=== PATIENT | female | born 1955 | race Caucasian/White ===

== ENCOUNTER 2020-09-01 13:35 | Outpatient (REF) | payer MEDICARE, OTHER, SELFPAY ==
[2020-09-01 14:13] LABS: MANUAL DIFF FLAG NO
[2020-09-01 14:15] LABS: Basophils Percent Auto 0.7 % (0-2); Eosinophils Absolute Auto 0.1 X10*3/uL (0.0-0.4); Eosinophils Percent Auto 2.5 % (0-4); Hematocrit 39.8 % (37-47); Hemoglobin 13.4 g/dl (12.0-16.0); Imm Gran Abs Auto 0.01 X10*3/uL (0.00-0.03); Imm Gran Pct Auto 0.2 % (0.0-0.4); Lymphocytes Absolute Auto 1.1 X10*3/uL (1.2-4.9); Lymphocytes Percent Auto 19.6 % (20-40); Mean Corpuscular HGB Conc 33.7 g/dl (31.0-35.0); Mean Corpuscular Hemoglobin 30.2 pg (27.0-33.0); Mean Corpuscular Volume 89.8 fL (80-98); Mean Platelet Volume 8.7 fL (9.4-12.3); Monocytes Absolute Auto 0.7 X10*3/uL (0.1-1.2); Neutrophils Absolute Auto 3.6 X10*3/uL (2.0-8.3); Platelet Count 311 X10*3/uL (160-400); Red Blood Count 4.43 X10*6/uL (4.20-5.50); Red Cell Distribution Width 13.2 % (11.0-16.0); White Blood Count 5.5 X10*3/uL (4.8-10.8)
[2020-09-01 16:00] LABS: Iron 99 mcg/dL (30-160); Percent Iron Saturation 26 % (15-50); Total Iron Binding Capacity 382 mcg/dL (228-428); Unsaturated Iron Binding 283 ug/dL
[2020-09-01 16:22] LABS: Ferritin 28 ng/mL (10-250)
== END 2020-09-01 13:36 | disposition home or self-care (01) ==
LOC: HO.BBR 13:35
PROVIDERS: Internal Medicine Gastroenterology; PCP Nurse Practitioner Adult Health; Visit Provider Nurse Practitioner Adult Health
DX: E83.110 Hereditary hemochromatosis (principal)
CPT/HCPCS: 36415; 82728; 83540; 85025; 99195

== ENCOUNTER 2020-11-07 15:17 | Outpatient (REF) | payer MEDICARE, OTHER, SELFPAY ==
[2020-11-07 15:23] LABS: MANUAL DIFF FLAG NO
[2020-11-07 15:32] LABS: Basophils Percent Auto 0.6 % (0-2); Eosinophils Absolute Auto 0.2 X10*3/uL (0.0-0.4); Eosinophils Percent Auto 2.5 % (0-4); Hematocrit 41.3 % (37-47); Hemoglobin 13.9 g/dl (12.0-16.0); Imm Gran Abs Auto 0.01 X10*3/uL (0.00-0.03); Imm Gran Pct Auto 0.1 % (0.0-0.4); Lymphocytes Absolute Auto 1.2 X10*3/uL (1.2-4.9); Lymphocytes Percent Auto 17.5 % (20-40); Mean Corpuscular HGB Conc 33.7 g/dl (31.0-35.0); Mean Corpuscular Hemoglobin 30.2 pg (27.0-33.0); Mean Corpuscular Volume 89.6 fL (80-98); Mean Platelet Volume 8.7 fL (9.4-12.3); Monocytes Absolute Auto 0.7 X10*3/uL (0.1-1.2); Monocytes Percent Auto 11.1 % (2-11); Neutrophils Absolute Auto 4.6 X10*3/uL (2.0-8.3); Neutrophils Percent Auto 68.2 % (45-73); Platelet Count 339 X10*3/uL (160-400); Red Blood Count 4.61 X10*6/uL (4.20-5.50); Red Cell Distribution Width 12.9 % (11.0-16.0); White Blood Count 6.7 X10*3/uL (4.8-10.8)
[2020-11-07 16:12] LABS: Iron 98 mcg/dL (30-160); Percent Iron Saturation 26 % (15-50); Total Iron Binding Capacity 381 mcg/dL (228-428); Unsaturated Iron Binding 283 ug/dL
[2020-11-07 16:33] LABS: Ferritin 25 ng/mL (10-250)
== END 2020-11-07 15:18 | disposition home or self-care (01) ==
LOC: HO.BBR 15:17
PROVIDERS: Visit Provider Internal Medicine Gastroenterology
DX: E83.110 Hereditary hemochromatosis (principal)
CPT/HCPCS: 36415; 82728; 83540; 85025

== ENCOUNTER 2020-11-07 15:59 | Outpatient (REF) | payer SELFPAY ==
[2020-11-07 16:32] LABS: Cholesterol 221 mg/dL
== END 2020-11-07 16:00 | disposition home or self-care (01) ==
LOC: HO.LNC 15:59
PROVIDERS: Visit Provider Pathology Anatomic Pathology & Clinical Pathology
DX: Z76.89 Persons encountering health services in other specified circumstances (principal)
CPT/HCPCS: 82465

== ENCOUNTER 2021-01-11 11:57 | Outpatient (REF) | payer MEDICARE, OTHER, SELFPAY ==
[2021-01-11 12:19] LABS: MANUAL DIFF FLAG NO
[2021-01-11 12:23] LABS: Basophils Percent Auto 0.6 % (0-2); Eosinophils Absolute Auto 0.2 X10*3/uL (0.0-0.4); Eosinophils Percent Auto 3.4 % (0-4); Hematocrit 40.7 % (37-47); Hemoglobin 13.6 g/dl (12.0-16.0); Imm Gran Abs Auto 0.01 X10*3/uL (0.00-0.03); Imm Gran Pct Auto 0.2 % (0.0-0.4); Lymphocytes Absolute Auto 0.8 X10*3/uL (1.2-4.9); Lymphocytes Percent Auto 15.2 % (20-40); Mean Corpuscular HGB Conc 33.4 g/dl (31.0-35.0); Mean Corpuscular Volume 86.8 fL (80-98); Mean Platelet Volume 8.9 fL (9.4-12.3); Monocytes Absolute Auto 0.6 X10*3/uL (0.1-1.2); Monocytes Percent Auto 11.6 % (2-11); Neutrophils Absolute Auto 3.6 X10*3/uL (2.0-8.3); Platelet Count 338 X10*3/uL (160-400); Red Blood Count 4.69 X10*6/uL (4.20-5.50); White Blood Count 5.3 X10*3/uL (4.8-10.8)
[2021-01-11 13:02] LABS: Iron 65 mcg/dL (30-160); Percent Iron Saturation 17 % (15-50); Total Iron Binding Capacity 376 mcg/dL (228-428); Unsaturated Iron Binding 311 ug/dL
[2021-01-11 13:22] LABS: Ferritin 20 ng/mL (10-250)
== END 2021-01-11 11:58 | disposition home or self-care (01) ==
LOC: HO.BBR 11:57
PROVIDERS: Visit Provider Internal Medicine Gastroenterology
DX: E83.110 Hereditary hemochromatosis (principal)
CPT/HCPCS: 36415; 82728; 83540; 85025

== ENCOUNTER 2021-03-22 11:08 | Outpatient (REF) | payer MEDICARE, OTHER, SELFPAY ==
[2021-03-22 11:38] LABS: MANUAL DIFF FLAG NO
[2021-03-22 11:41] LABS: Basophils Percent Auto 0.4 % (0-2); Eosinophils Absolute Auto 0.1 X10*3/uL (0.0-0.4); Eosinophils Percent Auto 0.6 % (0-4); Hematocrit 38.4 % (37-47); Hemoglobin 12.8 g/dl (12.0-16.0); Imm Gran Abs Auto 0.02 X10*3/uL (0.00-0.03); Imm Gran Pct Auto 0.3 % (0.0-0.4); Lymphocytes Absolute Auto 1.1 X10*3/uL (1.2-4.9); Mean Corpuscular HGB Conc 33.3 g/dl (31.0-35.0); Mean Corpuscular Hemoglobin 28.4 pg (27.0-33.0); Mean Corpuscular Volume 85.3 fL (80-98); Mean Platelet Volume 8.8 fL (9.4-12.3); Monocytes Absolute Auto 0.9 X10*3/uL (0.1-1.2); Monocytes Percent Auto 11.6 % (2-11); Neutrophils Absolute Auto 5.7 X10*3/uL (2.0-8.3); Neutrophils Percent Auto 73.1 % (45-73); Platelet Count 398 X10*3/uL (160-400); Red Cell Distribution Width 13.5 % (11.0-16.0); White Blood Count 7.8 X10*3/uL (4.8-10.8)
[2021-03-22 12:35] LABS: Iron 75 mcg/dL (30-160); Percent Iron Saturation 20 % (15-50); Total Iron Binding Capacity 381 mcg/dL (228-428); Unsaturated Iron Binding 306 ug/dL
[2021-03-22 13:09] LABS: Ferritin 28 ng/mL (10-250)
== END 2021-03-22 11:09 | disposition home or self-care (01) ==
LOC: HO.BBR 11:08
PROVIDERS: Visit Provider Internal Medicine Gastroenterology
DX: E83.110 Hereditary hemochromatosis (principal)
CPT/HCPCS: 36415; 82728; 83540; 85025

== ENCOUNTER 2021-05-24 12:59 | Outpatient (REF) | payer MEDICARE, OTHER, SELFPAY ==
[2021-05-24 13:17] LABS: MANUAL DIFF FLAG NO
[2021-05-24 13:20] LABS: Basophils Percent Auto 0.6 % (0-2); Eosinophils Absolute Auto 0.1 X10*3/uL (0.0-0.4); Eosinophils Percent Auto 2.5 % (0-4); Hematocrit 38.9 % (37-47); Hemoglobin 12.9 g/dl (12.0-16.0); Lymphocytes Absolute Auto 1.1 X10*3/uL (1.2-4.9); Lymphocytes Percent Auto 21.3 % (20-40); Mean Corpuscular HGB Conc 33.2 g/dl (31.0-35.0); Mean Corpuscular Hemoglobin 28.4 pg (27.0-33.0); Mean Corpuscular Volume 85.7 fL (80-98); Mean Platelet Volume 8.6 fL (9.4-12.3); Monocytes Absolute Auto 0.6 X10*3/uL (0.1-1.2); Monocytes Percent Auto 12.3 % (2-11); Neutrophils Absolute Auto 3.3 X10*3/uL (2.0-8.3); Neutrophils Percent Auto 63.3 % (45-73); Platelet Count 358 X10*3/uL (160-400); Red Blood Count 4.54 X10*6/uL (4.20-5.50); Red Cell Distribution Width 13.7 % (11.0-16.0); White Blood Count 5.2 X10*3/uL (4.8-10.8)
[2021-05-24 13:49] LABS: Iron 73 mcg/dL (30-160); Percent Iron Saturation 18 % (15-50); Total Iron Binding Capacity 404 mcg/dL (228-428); Unsaturated Iron Binding 331 ug/dL
[2021-05-24 14:09] LABS: Ferritin 13 ng/mL (10-250)
== END 2021-05-24 13:00 | disposition home or self-care (01) ==
LOC: HO.BBR 12:59
PROVIDERS: Visit Provider Internal Medicine Gastroenterology
DX: E83.110 Hereditary hemochromatosis (principal)
CPT/HCPCS: 36415; 82728; 83540; 85025

== ENCOUNTER 2021-08-24 10:44 | Outpatient (REF) | payer MEDICARE, OTHER, SELFPAY | END 2021-08-24 10:45 | disposition home or self-care (01) | LOC: HO.BBR 10:44 | PROVIDERS: Visit Provider Internal Medicine Gastroenterology | DX: Z13.89 Encounter for screening for other disorder (principal) ==

== ENCOUNTER 2021-09-07 11:10 | Outpatient (REF) | payer MEDICARE, OTHER, SELFPAY ==
[2021-09-07 11:29] LABS: MANUAL DIFF FLAG NO
[2021-09-07 11:32] LABS: Basophils Percent Auto 0.8 % (0-2); Eosinophils Absolute Auto 0.2 X10*3/uL (0.0-0.4); Eosinophils Percent Auto 4.2 % (0-4); Hematocrit 42.3 % (37-47); Hemoglobin 14.3 g/dl (12.0-16.0); Imm Gran Abs Auto 0.01 X10*3/uL (0.00-0.03); Imm Gran Pct Auto 0.2 % (0.0-0.4); Lymphocytes Absolute Auto 0.9 X10*3/uL (1.2-4.9); Mean Corpuscular HGB Conc 33.8 g/dl (31.0-35.0); Mean Corpuscular Hemoglobin 29.2 pg (27.0-33.0); Mean Corpuscular Volume 86.3 fL (80-98); Mean Platelet Volume 8.8 fL (9.4-12.3); Monocytes Absolute Auto 0.6 X10*3/uL (0.1-1.2); Monocytes Percent Auto 11.4 % (2-11); Neutrophils Absolute Auto 3.3 X10*3/uL (2.0-8.3); Neutrophils Percent Auto 66.4 % (45-73); Platelet Count 360 X10*3/uL (160-400); Red Cell Distribution Width 14.7 % (11.0-16.0)
[2021-09-07 11:50] LABS: Iron 60 mcg/dL (30-160); Percent Iron Saturation 15 % (15-50); Total Iron Binding Capacity 405 mcg/dL (228-428); Unsaturated Iron Binding 345 ug/dL
[2021-09-07 12:12] LABS: Ferritin 41 ng/mL (10-250)
== END 2021-09-07 11:11 | disposition home or self-care (01) ==
LOC: HO.BBR 11:10
PROVIDERS: Visit Provider Physician Assistant Medical
DX: E83.110 Hereditary hemochromatosis (principal)
CPT/HCPCS: 36415; 82728; 83540; 85025

== ENCOUNTER 2021-11-02 11:55 | Outpatient (REF) | payer MEDICARE, OTHER, SELFPAY ==
[2021-11-02 12:18] LABS: MANUAL DIFF FLAG NO
[2021-11-02 12:20] LABS: Basophils Percent Auto 0.4 % (0-2); Eosinophils Absolute Auto 0.1 X10*3/uL (0.0-0.4); Eosinophils Percent Auto 2.6 % (0-4); Hematocrit 40.3 % (37.0-47.0); Hemoglobin 13.6 g/dl (12.0-16.0); Imm Gran Abs Auto 0.02 X10*3/uL (0.00-0.03); Imm Gran Pct Auto 0.4 % (0.0-0.4); Lymphocytes Percent Auto 18.3 % (20-40); Mean Corpuscular HGB Conc 33.7 g/dl (31.0-35.0); Mean Corpuscular Hemoglobin 30.2 pg (27.0-33.0); Mean Corpuscular Volume 89.4 fL (80.0-98.0); Monocytes Absolute Auto 0.5 X10*3/uL (0.1-1.2); Monocytes Percent Auto 9.8 % (2-11); Neutrophils Absolute Auto 3.7 x10*3/uL (2.0-8.3); Neutrophils Percent Auto 68.5 % (45-73); Platelet Count 319 X10*3/uL (160-400); Red Blood Count 4.51 X10*6/uL (4.20-5.50); Red Cell Distribution Width 13.6 % (11.0-16.0); White Blood Count 5.4 X10*3/uL (4.8-10.8)
[2021-11-02 12:46] LABS: Iron 70 mcg/dL (30-160); Percent Iron Saturation 18 % (15-50); Total Iron Binding Capacity 385 mcg/dL (228-428); Unsaturated Iron Binding 315 ug/dL
[2021-11-02 13:03] LABS: Ferritin 18 ng/mL (10-250)
== END 2021-11-02 11:56 | disposition home or self-care (01) ==
LOC: HO.BBR 11:55
PROVIDERS: Visit Provider Physician Assistant Medical
DX: E83.110 Hereditary hemochromatosis (principal)
CPT/HCPCS: 36415; 82728; 83540; 85025

== ENCOUNTER 2021-12-28 12:01 | Outpatient (REF) | payer MEDICARE, OTHER, SELFPAY ==
[2021-12-28 12:18] LABS: MANUAL DIFF FLAG NO
[2021-12-28 12:23] LABS: Basophils Percent Auto 0.6 % (0-2); Eosinophils Absolute Auto 0.2 X10*3/uL (0.0-0.4); Eosinophils Percent Auto 2.9 % (0-4); Hematocrit 43.4 % (37.0-47.0); Imm Gran Abs Auto 0.01 X10*3/uL (0.00-0.03); Imm Gran Pct Auto 0.2 % (0.0-0.4); Lymphocytes Absolute Auto 0.8 X10*3/uL (1.2-4.9); Lymphocytes Percent Auto 15.1 % (20-40); Mean Corpuscular HGB Conc 32.3 g/dl (31.0-35.0); Mean Corpuscular Hemoglobin 28.7 pg (27.0-33.0); Mean Corpuscular Volume 88.9 fL (80.0-98.0); Mean Platelet Volume 9.1 fL (9.4-12.3); Monocytes Absolute Auto 0.6 X10*3/uL (0.1-1.2); Neutrophils Absolute Auto 3.6 x10*3/uL (2.0-8.3); Neutrophils Percent Auto 69.2 % (45-73); Platelet Count 337 X10*3/uL (160-400); Red Blood Count 4.88 X10*6/uL (4.20-5.50); Red Cell Distribution Width 13.3 % (11.0-16.0); White Blood Count 5.2 X10*3/uL (4.8-10.8)
[2021-12-28 12:44] LABS: Iron 51 mcg/dL (30-160); Percent Iron Saturation 11 % (15-50); Total Iron Binding Capacity 456 mcg/dL (228-428); Unsaturated Iron Binding 405 ug/dL
[2021-12-28 13:04] LABS: Ferritin 16 ng/mL (10-250)
== END 2021-12-28 12:02 | disposition home or self-care (01) ==
LOC: HO.BBR 12:01
PROVIDERS: Visit Provider Physician Assistant Medical
DX: E83.110 Hereditary hemochromatosis (principal)
CPT/HCPCS: 36415; 82728; 83540; 85025

== ENCOUNTER 2022-02-15 11:54 | Outpatient (REF) | payer MEDICARE, OTHER, SELFPAY ==
[2022-02-15 12:10] LABS: Hematocrit 40.3 % (37.0-47.0); Hemoglobin 13.1 g/dl (12.0-16.0); Mean Corpuscular HGB Conc 32.5 g/dl (31.0-35.0); Mean Corpuscular Hemoglobin 27.6 pg (27.0-33.0); Mean Corpuscular Volume 84.8 fL (80.0-98.0); Mean Platelet Volume 9.3 fL (9.4-12.3); Platelet Count 309 X10*3/uL (160-400); Red Blood Count 4.75 X10*6/uL (4.20-5.50); Red Cell Distribution Width 13.7 % (11.0-16.0); White Blood Count 5.9 X10*3/uL (4.8-10.8)
[2022-02-15 14:17] LABS: Iron 77 mcg/dL (30-160); Percent Iron Saturation 18 % (15-50); Total Iron Binding Capacity 430 mcg/dL (228-428); Unsaturated Iron Binding 353 ug/dL
[2022-02-15 14:41] LABS: Ferritin 18 ng/mL (10-250)
== END 2022-02-15 11:55 | disposition home or self-care (01) ==
LOC: HO.BBR 11:54
PROVIDERS: Visit Provider Physician Assistant Medical
DX: E83.110 Hereditary hemochromatosis (principal)
CPT/HCPCS: 36415; 82728; 83540; 85027

== ENCOUNTER 2022-04-12 11:03 | Outpatient (REF) | payer MEDICARE, OTHER, SELFPAY ==
[2022-04-12 11:36] LABS: Hematocrit 39.6 % (37.0-47.0); Hemoglobin 12.9 g/dl (12.0-16.0); Mean Corpuscular HGB Conc 32.6 g/dl (31.0-35.0); Mean Corpuscular Hemoglobin 27.9 pg (27.0-33.0); Mean Corpuscular Volume 85.7 fL (80.0-98.0); Mean Platelet Volume 9.4 fL (9.4-12.3); Platelet Count 338 X10*3/uL (160-400); Red Blood Count 4.62 X10*6/uL (4.20-5.50); Red Cell Distribution Width 15.7 % (11.0-16.0); White Blood Count 5.1 X10*3/uL (4.8-10.8)
[2022-04-12 12:12] LABS: Iron 59 mcg/dL (30-160); Percent Iron Saturation 13 % (15-50); Total Iron Binding Capacity 441 mcg/dL (228-428); Unsaturated Iron Binding 382 ug/dL
[2022-04-12 12:26] LABS: Ferritin 16 ng/mL (10-250)
== END 2022-04-12 11:04 | disposition home or self-care (01) ==
LOC: HO.BBR 11:03
PROVIDERS: Visit Provider Physician Assistant Medical
DX: E83.110 Hereditary hemochromatosis (principal)
CPT/HCPCS: 36415; 82728; 83540; 85027

== ENCOUNTER 2022-06-07 11:05 | Outpatient (REF) | payer MEDICARE, OTHER, SELFPAY ==
[2022-06-07 11:27] LABS: MANUAL DIFF FLAG NO
[2022-06-07 11:28] LABS: Basophils Percent Auto 0.6 % (0-2); Eosinophils Absolute Auto 0.2 X10*3/uL (0.0-0.4); Eosinophils Percent Auto 3.2 % (0-4); Hematocrit 41.4 % (37.0-47.0); Hemoglobin 13.3 g/dl (12.0-16.0); Imm Gran Abs Auto 0.01 X10*3/uL (0.00-0.03); Imm Gran Pct Auto 0.2 % (0.0-0.4); Lymphocytes Absolute Auto 0.8 X10*3/uL (1.2-4.9); Lymphocytes Percent Auto 15.6 % (20-40); Mean Corpuscular HGB Conc 32.1 g/dl (31.0-35.0); Mean Corpuscular Hemoglobin 26.9 pg (27.0-33.0); Mean Corpuscular Volume 83.6 fL (80.0-98.0); Mean Platelet Volume 9.2 fL (9.4-12.3); Monocytes Absolute Auto 0.6 X10*3/uL (0.1-1.2); Monocytes Percent Auto 11.4 % (2-11); Neutrophils Absolute Auto 3.7 x10*3/uL (2.0-8.3); Platelet Count 342 X10*3/uL (160-400); Red Blood Count 4.95 X10*6/uL (4.20-5.50); Red Cell Distribution Width 15.2 % (11.0-16.0); White Blood Count 5.4 X10*3/uL (4.8-10.8)
[2022-06-07 12:34] LABS: Iron 56 mcg/dL (30-160); Percent Iron Saturation 12 % (15-50); Total Iron Binding Capacity 456 mcg/dL (228-428); Unsaturated Iron Binding 400 ug/dL
[2022-06-07 12:57] LABS: Ferritin 12 ng/mL (10-250)
== END 2022-06-07 11:06 | disposition home or self-care (01) ==
LOC: HO.BBR 11:05
PROVIDERS: Visit Provider Physician Assistant Medical
DX: E83.110 Hereditary hemochromatosis (principal)
CPT/HCPCS: 36415; 82728; 83540; 85025

== ENCOUNTER 2022-08-01 11:09 | Outpatient (REF) | payer MEDICARE, OTHER, SELFPAY ==
[2022-08-01 11:31] LABS: MANUAL DIFF FLAG NO
[2022-08-01 11:35] LABS: Basophils Percent Auto 0.8 % (0-2); Eosinophils Absolute Auto 0.2 X10*3/uL (0.0-0.4); Eosinophils Percent Auto 3.7 % (0-4); Hematocrit 41.4 % (37.0-47.0); Hemoglobin 13.4 g/dl (12.0-16.0); Imm Gran Abs Auto 0.01 X10*3/uL (0.00-0.03); Imm Gran Pct Auto 0.2 % (0.0-0.4); Lymphocytes Absolute Auto 0.8 X10*3/uL (1.2-4.9); Lymphocytes Percent Auto 15.9 % (20-40); Mean Corpuscular HGB Conc 32.4 g/dl (31.0-35.0); Mean Corpuscular Hemoglobin 26.7 pg (27.0-33.0); Mean Corpuscular Volume 82.6 fL (80.0-98.0); Mean Platelet Volume 9.1 fL (9.4-12.3); Monocytes Absolute Auto 0.5 X10*3/uL (0.1-1.2); Monocytes Percent Auto 10.6 % (2-11); Neutrophils Absolute Auto 3.5 x10*3/uL (2.0-8.3); Neutrophils Percent Auto 68.8 % (45-73); Platelet Count 336 X10*3/uL (160-400); Red Blood Count 5.01 X10*6/uL (4.20-5.50); Red Cell Distribution Width 15.8 % (11.0-16.0); White Blood Count 5.1 X10*3/uL (4.8-10.8)
[2022-08-01 12:13] LABS: Iron 63 mcg/dL (30-160); Percent Iron Saturation 14 % (15-50); Total Iron Binding Capacity 456 mcg/dL (228-428); Unsaturated Iron Binding 393 ug/dL
[2022-08-01 12:34] LABS: Ferritin 9 ng/mL (10-250)
== END 2022-08-01 11:10 | disposition home or self-care (01) ==
LOC: HO.BBR 11:09
PROVIDERS: Visit Provider Physician Assistant Medical
DX: E83.110 Hereditary hemochromatosis (principal)
CPT/HCPCS: 36415; 82728; 83540; 85025

== ENCOUNTER 2022-10-03 11:01 | Outpatient (REF) | payer MEDICARE, OTHER, SELFPAY ==
[2022-10-03 11:33] LABS: MANUAL DIFF FLAG NO
[2022-10-03 11:34] LABS: Basophils Percent Auto 0.7 % (0-2); Eosinophils Absolute Auto 0.1 X10*3/uL (0.0-0.4); Eosinophils Percent Auto 3.1 % (0-4); Hematocrit 42.2 % (37.0-47.0); Hemoglobin 13.5 g/dl (12.0-16.0); Imm Gran Abs Auto 0.01 X10*3/uL (0.00-0.03); Imm Gran Pct Auto 0.2 % (0.0-0.4); Lymphocytes Absolute Auto 0.9 X10*3/uL (1.2-4.9); Lymphocytes Percent Auto 19.3 % (20-40); Mean Corpuscular Hemoglobin 26.5 pg (27.0-33.0); Mean Corpuscular Volume 82.9 fL (80.0-98.0); Mean Platelet Volume 9.1 fL (9.4-12.3); Monocytes Absolute Auto 0.6 X10*3/uL (0.1-1.2); Monocytes Percent Auto 13.4 % (2-11); Neutrophils Absolute Auto 2.9 x10*3/uL (2.0-8.3); Neutrophils Percent Auto 63.3 % (45-73); Platelet Count 358 X10*3/uL (160-400); Red Blood Count 5.09 X10*6/uL (4.20-5.50); Red Cell Distribution Width 15.8 % (11.0-16.0); White Blood Count 4.6 X10*3/uL (4.8-10.8)
[2022-10-03 13:04] LABS: Ferritin 14 ng/mL (10-250); Iron 62 mcg/dL (30-160); Percent Iron Saturation 16 % (15-50); Total Iron Binding Capacity 384 mcg/dL (228-428); Unsaturated Iron Binding 322 ug/dL
== END 2022-10-03 11:02 | disposition home or self-care (01) ==
LOC: HO.BBR 11:01
PROVIDERS: Visit Provider Physician Assistant Medical
DX: E83.110 Hereditary hemochromatosis (principal)
CPT/HCPCS: 36415; 82728; 83540; 85025

== ENCOUNTER 2022-11-29 10:50 | Outpatient (REF) | payer MEDICARE, OTHER, SELFPAY ==
[2022-11-29 11:13] LABS: MANUAL DIFF FLAG NO
[2022-11-29 11:15] LABS: Basophils Percent Auto 0.6 % (0-2); Eosinophils Absolute Auto 0.2 X10*3/uL (0.0-0.4); Eosinophils Percent Auto 3.2 % (0-4); Hemoglobin 13.2 g/dl (12.0-16.0); Imm Gran Abs Auto 0.01 X10*3/uL (0.00-0.03); Imm Gran Pct Auto 0.2 % (0.0-0.4); Lymphocytes Absolute Auto 0.8 X10*3/uL (1.2-4.9); Lymphocytes Percent Auto 17.4 % (20-40); Mean Corpuscular HGB Conc 32.2 g/dl (31.0-35.0); Mean Corpuscular Hemoglobin 26.4 pg (27.0-33.0); Mean Platelet Volume 9.2 fL (9.4-12.3); Monocytes Absolute Auto 0.6 X10*3/uL (0.1-1.2); Monocytes Percent Auto 12.5 % (2-11); Neutrophils Absolute Auto 3.1 x10*3/uL (2.0-8.3); Neutrophils Percent Auto 66.1 % (45-73); Platelet Count 315 X10*3/uL (160-400); Red Cell Distribution Width 15.4 % (11.0-16.0); White Blood Count 4.7 X10*3/uL (4.8-10.8)
[2022-11-29 12:36] LABS: Iron 56 mcg/dL (30-160); Percent Iron Saturation 15 % (15-50); Total Iron Binding Capacity 378 mcg/dL (228-428); Unsaturated Iron Binding 322 ug/dL
[2022-11-29 12:41] LABS: Ferritin 11 ng/mL (10-250)
== END 2022-11-29 10:51 | disposition home or self-care (01) ==
LOC: HO.BBR 10:50
PROVIDERS: Visit Provider Physician Assistant Medical
DX: E83.110 Hereditary hemochromatosis (principal)
CPT/HCPCS: 36415; 82728; 83540; 85025

== ENCOUNTER 2023-01-24 11:00 | Outpatient (REF) | payer MEDICARE, OTHER, SELFPAY ==
[2023-01-24 11:26] LABS: MANUAL DIFF FLAG NO
[2023-01-24 11:28] LABS: Basophils Percent Auto 0.5 % (0-2); Eosinophils Absolute Auto 0.2 X10*3/uL (0.0-0.4); Eosinophils Percent Auto 3.5 % (0-4); Hematocrit 43.5 % (37.0-47.0); Hemoglobin 13.6 g/dl (12.0-16.0); Imm Gran Abs Auto 0.02 X10*3/uL (0.00-0.03); Imm Gran Pct Auto 0.3 % (0.0-0.4); Lymphocytes Percent Auto 16.2 % (20-40); Mean Corpuscular HGB Conc 31.3 g/dl (31.0-35.0); Mean Corpuscular Hemoglobin 26.6 pg (27.0-33.0); Mean Platelet Volume 8.9 fL (9.4-12.3); Monocytes Absolute Auto 0.6 X10*3/uL (0.1-1.2); Monocytes Percent Auto 10.8 % (2-11); Neutrophils Absolute Auto 4.1 x10*3/uL (2.0-8.3); Neutrophils Percent Auto 68.7 % (45-73); Platelet Count 301 X10*3/uL (160-400); Red Blood Count 5.12 X10*6/uL (4.20-5.50); Red Cell Distribution Width 16.7 % (11.0-16.0); White Blood Count 5.9 X10*3/uL (4.8-10.8)
[2023-01-24 12:23] LABS: Ferritin 15 ng/mL (10-250); Iron 90 mcg/dL (30-160); Percent Iron Saturation 23 % (15-50); Total Iron Binding Capacity 389 mcg/dL (228-428); Unsaturated Iron Binding 299 ug/dL
== END 2023-01-24 11:01 | disposition home or self-care (01) ==
LOC: HO.BBR 11:00
PROVIDERS: Visit Provider Physician Assistant Medical
DX: E83.110 Hereditary hemochromatosis (principal)
CPT/HCPCS: 36415; 82728; 83540; 85025

== ENCOUNTER 2023-03-19 10:09 | Outpatient (REF) | payer MEDICARE, OTHER, SELFPAY ==
[2023-03-19 10:38] LABS: MANUAL DIFF FLAG NO
[2023-03-19 10:42] LABS: Basophils Percent Auto 0.7 % (0-2); Eosinophils Absolute Auto 0.2 X10*3/uL (0.0-0.4); Eosinophils Percent Auto 3.7 % (0-4); Hematocrit 41.7 % (37.0-47.0); Hemoglobin 13.4 g/dl (12.0-16.0); Imm Gran Abs Auto 0.02 X10*3/uL (0.00-0.03); Imm Gran Pct Auto 0.4 % (0.0-0.4); Lymphocytes Absolute Auto 0.7 X10*3/uL (1.2-4.9); Lymphocytes Percent Auto 11.6 % (20-40); Mean Corpuscular HGB Conc 32.1 g/dl (31.0-35.0); Mean Corpuscular Hemoglobin 27.6 pg (27.0-33.0); Mean Platelet Volume 9.1 fL (9.4-12.3); Monocytes Absolute Auto 0.8 X10*3/uL (0.1-1.2); Monocytes Percent Auto 13.5 % (2-11); Neutrophils Percent Auto 70.1 % (45-73); Platelet Count 328 X10*3/uL (160-400); Red Blood Count 4.85 X10*6/uL (4.20-5.50); Red Cell Distribution Width 15.2 % (11.0-16.0); White Blood Count 5.7 X10*3/uL (4.8-10.8)
[2023-03-19 12:21] LABS: Iron 60 mcg/dL (30-160); Percent Iron Saturation 16 % (15-50); Total Iron Binding Capacity 370 mcg/dL (228-428); Unsaturated Iron Binding 310 ug/dL
[2023-03-19 12:42] LABS: Ferritin 15 ng/mL (10-250)
== END 2023-03-19 10:10 | disposition home or self-care (01) ==
LOC: HO.BBR 10:09
PROVIDERS: Visit Provider Physician Assistant Medical
DX: E83.110 Hereditary hemochromatosis (principal)
CPT/HCPCS: 36415; 82728; 83540; 85025

== ENCOUNTER 2023-05-21 10:11 | Outpatient (REF) | payer MEDICARE, OTHER, SELFPAY ==
[2023-05-21 10:36] LABS: MANUAL DIFF FLAG NO
[2023-05-21 10:37] LABS: Basophils Percent Auto 0.5 % (0-2); Eosinophils Absolute Auto 0.2 X10*3/uL (0.0-0.4); Eosinophils Percent Auto 2.6 % (0-4); Hematocrit 44.4 % (37.0-47.0); Hemoglobin 14.4 g/dl (12.0-16.0); Imm Gran Abs Auto 0.01 X10*3/uL (0.00-0.03); Imm Gran Pct Auto 0.2 % (0.0-0.4); Lymphocytes Absolute Auto 0.9 X10*3/uL (1.2-4.9); Lymphocytes Percent Auto 13.4 % (20-40); Mean Corpuscular HGB Conc 32.4 g/dl (31.0-35.0); Mean Corpuscular Hemoglobin 27.9 pg (27.0-33.0); Mean Platelet Volume 9.1 fL (9.4-12.3); Monocytes Absolute Auto 0.6 X10*3/uL (0.1-1.2); Monocytes Percent Auto 8.9 % (2-11); Neutrophils Percent Auto 74.4 % (45-73); Platelet Count 329 X10*3/uL (160-400); Red Blood Count 5.16 X10*6/uL (4.20-5.50); Red Cell Distribution Width 15.9 % (11.0-16.0); White Blood Count 6.6 X10*3/uL (4.8-10.8)
[2023-05-21 11:34] LABS: Iron 109 mcg/dL (30-160); Percent Iron Saturation 29 % (15-50); Total Iron Binding Capacity 371 mcg/dL (228-428); Unsaturated Iron Binding 262 ug/dL
[2023-05-21 11:50] LABS: Ferritin 19 ng/mL (10-250)
== END 2023-05-21 10:12 | disposition home or self-care (01) ==
LOC: HO.BBR 10:11
PROVIDERS: Visit Provider Physician Assistant Medical
DX: E83.110 Hereditary hemochromatosis (principal)
CPT/HCPCS: 36415; 82728; 83540; 85025

== ENCOUNTER 2023-07-11 10:07 | Outpatient (REF) | payer MEDICARE, OTHER, SELFPAY ==
[2023-07-11 10:29] LABS: MANUAL DIFF FLAG NO
[2023-07-11 10:31] LABS: Basophils Percent Auto 0.7 % (0-2); Eosinophils Absolute Auto 0.1 X10*3/uL (0.0-0.4); Eosinophils Percent Auto 2.3 % (0-4); Hematocrit 44.5 % (37.0-47.0); Hemoglobin 14.4 g/dl (12.0-16.0); Imm Gran Abs Auto 0.01 X10*3/uL (0.00-0.03); Imm Gran Pct Auto 0.2 % (0.0-0.4); Lymphocytes Percent Auto 15.6 % (20-40); Mean Corpuscular HGB Conc 32.4 g/dl (31.0-35.0); Mean Corpuscular Hemoglobin 28.3 pg (27.0-33.0); Mean Corpuscular Volume 87.4 fL (80.0-98.0); Mean Platelet Volume 8.9 fL (9.4-12.3); Monocytes Absolute Auto 0.5 X10*3/uL (0.1-1.2); Monocytes Percent Auto 8.5 % (2-11); Neutrophils Absolute Auto 4.4 x10*3/uL (2.0-8.3); Neutrophils Percent Auto 72.7 % (45-73); Platelet Count 335 X10*3/uL (160-400); Red Blood Count 5.09 X10*6/uL (4.20-5.50); Red Cell Distribution Width 15.6 % (11.0-16.0); White Blood Count 6.1 X10*3/uL (4.8-10.8)
[2023-07-11 11:18] LABS: Iron 74 mcg/dL (30-160); Percent Iron Saturation 18 % (15-50); Total Iron Binding Capacity 401 mcg/dL (228-428); Unsaturated Iron Binding 327 ug/dL
[2023-07-11 11:35] LABS: Ferritin 16 ng/mL (10-250)
== END 2023-07-11 10:08 | disposition home or self-care (01) ==
LOC: HO.BBR 10:07
PROVIDERS: Visit Provider Physician Assistant Medical
DX: E83.110 Hereditary hemochromatosis (principal)
CPT/HCPCS: 36415; 82728; 83540; 85025

== ENCOUNTER 2023-09-05 10:01 | Outpatient (REF) | payer MEDICARE, OTHER, SELFPAY ==
[2023-09-05 10:28] LABS: MANUAL DIFF FLAG NO
[2023-09-05 10:30] LABS: Basophils Percent Auto 0.5 % (0-2); Eosinophils Absolute Auto 0.1 X10*3/uL (0.0-0.4); Eosinophils Percent Auto 1.9 % (0-4); Hemoglobin 14.4 g/dl (12.0-16.0); Imm Gran Abs Auto 0.01 X10*3/uL (0.00-0.03); Imm Gran Pct Auto 0.2 % (0.0-0.4); Lymphocytes Absolute Auto 0.8 X10*3/uL (1.2-4.9); Lymphocytes Percent Auto 12.9 % (20-40); Mean Corpuscular HGB Conc 32.7 g/dl (31.0-35.0); Mean Corpuscular Hemoglobin 28.9 pg (27.0-33.0); Mean Corpuscular Volume 88.4 fL (80.0-98.0); Monocytes Absolute Auto 0.6 X10*3/uL (0.1-1.2); Monocytes Percent Auto 10.2 % (2-11); Neutrophils Absolute Auto 4.6 x10*3/uL (2.0-8.3); Neutrophils Percent Auto 74.3 % (45-73); Platelet Count 313 X10*3/uL (160-400); Red Blood Count 4.98 X10*6/uL (4.20-5.50); Red Cell Distribution Width 14.6 % (11.0-16.0); White Blood Count 6.2 X10*3/uL (4.8-10.8)
[2023-09-05 11:43] LABS: Iron 66 mcg/dL (30-160); Percent Iron Saturation 18 % (15-50); Total Iron Binding Capacity 370 mcg/dL (228-428); Unsaturated Iron Binding 304 ug/dL
[2023-09-05 12:02] LABS: Ferritin 21 ng/mL (10-250)
== END 2023-09-05 10:02 | disposition home or self-care (01) ==
LOC: HO.BBR 10:01
PROVIDERS: Visit Provider Physician Assistant Medical
DX: E83.110 Hereditary hemochromatosis (principal)
CPT/HCPCS: 36415; 82728; 83540; 85025

== ENCOUNTER 2023-12-24 11:17 | Outpatient (REF) | payer MEDICARE, OTHER, SELFPAY ==
[2023-12-24 11:48] LABS: MANUAL DIFF FLAG NO
[2023-12-24 11:50] LABS: Basophils Percent Auto 0.8 % (0-2); Eosinophils Absolute Auto 0.2 X10*3/uL (0.0-0.4); Eosinophils Percent Auto 3.4 % (0-4); Hematocrit 42.8 % (37.0-47.0); Hemoglobin 14.3 g/dl (12.0-16.0); Imm Gran Abs Auto 0.01 X10*3/uL (0.00-0.03); Imm Gran Pct Auto 0.2 % (0.0-0.4); Lymphocytes Absolute Auto 0.8 X10*3/uL (1.2-4.9); Lymphocytes Percent Auto 17.1 % (20-40); Mean Corpuscular HGB Conc 33.4 g/dl (31.0-35.0); Mean Corpuscular Hemoglobin 29.5 pg (27.0-33.0); Mean Corpuscular Volume 88.4 fL (80.0-98.0); Mean Platelet Volume 9.1 fL (9.4-12.3); Monocytes Absolute Auto 0.5 X10*3/uL (0.1-1.2); Neutrophils Absolute Auto 3.2 x10*3/uL (2.0-8.3); Neutrophils Percent Auto 67.5 % (45-73); Platelet Count 318 X10*3/uL (160-400); Red Blood Count 4.84 X10*6/uL (4.20-5.50); Red Cell Distribution Width 15.4 % (11.0-16.0); White Blood Count 4.7 X10*3/uL (4.8-10.8)
[2023-12-24 12:53] LABS: Iron 124 mcg/dL (30-160); Percent Iron Saturation 38 % (15-50); Total Iron Binding Capacity 330 mcg/dL (228-428); Unsaturated Iron Binding 206 ug/dL
[2023-12-24 13:14] LABS: Ferritin 38 ng/mL (10-250)
== END 2023-12-24 11:18 | disposition home or self-care (01) ==
LOC: HO.BBR 11:17
PROVIDERS: Visit Provider Physician Assistant Medical
DX: E83.110 Hereditary hemochromatosis (principal)
CPT/HCPCS: 36415; 82728; 83540; 85025

== ENCOUNTER 2024-02-26 11:03 | Outpatient (REF) | payer MEDICARE, OTHER, SELFPAY ==
[2024-02-26 11:22] LABS: MANUAL DIFF FLAG NO
[2024-02-26 11:25] LABS: Basophils Percent Auto 0.4 % (0-2); Eosinophils Absolute Auto 0.1 X10*3/uL (0.0-0.4); Eosinophils Percent Auto 1.5 % (0-4); Hematocrit 43.5 % (37.0-47.0); Hemoglobin 14.7 g/dl (12.0-16.0); Imm Gran Abs Auto 0.02 X10*3/uL (0.00-0.03); Imm Gran Pct Auto 0.2 % (0.0-0.4); Lymphocytes Absolute Auto 0.8 X10*3/uL (1.2-4.9); Lymphocytes Percent Auto 9.8 % (20-40); Mean Corpuscular HGB Conc 33.8 g/dl (31.0-35.0); Mean Corpuscular Hemoglobin 31.5 pg (27.0-33.0); Mean Corpuscular Volume 93.3 fL (80.0-98.0); Mean Platelet Volume 8.9 fL (9.4-12.3); Monocytes Absolute Auto 0.7 X10*3/uL (0.1-1.2); Neutrophils Absolute Auto 6.8 x10*3/uL (2.0-8.3); Neutrophils Percent Auto 80.1 % (45-73); Platelet Count 343 X10*3/uL (160-400); Red Blood Count 4.66 X10*6/uL (4.20-5.50); Red Cell Distribution Width 13.2 % (11.0-16.0); White Blood Count 8.5 X10*3/uL (4.8-10.8)
[2024-02-26 12:15] LABS: Iron 148 mcg/dL (30-160); Percent Iron Saturation 42 % (15-50); Total Iron Binding Capacity 350 mcg/dL (228-428); Unsaturated Iron Binding 202 ug/dL
[2024-02-26 12:21] LABS: Ferritin 44 ng/mL (10-250)
== END 2024-02-26 11:04 | disposition home or self-care (01) ==
LOC: HO.BBR 11:03
PROVIDERS: Visit Provider Physician Assistant Medical
DX: E83.110 Hereditary hemochromatosis (principal)
CPT/HCPCS: 36415; 82728; 83540; 85025

== ENCOUNTER 2024-04-21 10:57 | Outpatient (REF) | payer MEDICARE, OTHER, SELFPAY ==
[2024-04-21 11:20] LABS: MANUAL DIFF FLAG NO
[2024-04-21 11:22] LABS: Basophils Percent Auto 0.5 % (0-2); Eosinophils Absolute Auto 0.1 X10*3/uL (0.0-0.4); Eosinophils Percent Auto 1.4 % (0-4); Hemoglobin 14.5 g/dl (12.0-16.0); Imm Gran Abs Auto 0.02 X10*3/uL (0.00-0.03); Imm Gran Pct Auto 0.4 % (0.0-0.4); Lymphocytes Absolute Auto 0.8 X10*3/uL (1.2-4.9); Lymphocytes Percent Auto 14.4 % (20-40); Mean Corpuscular HGB Conc 33.7 g/dl (31.0-35.0); Mean Corpuscular Hemoglobin 31.9 pg (27.0-33.0); Mean Corpuscular Volume 94.5 fL (80.0-98.0); Mean Platelet Volume 8.7 fL (9.4-12.3); Monocytes Absolute Auto 0.6 X10*3/uL (0.1-1.2); Monocytes Percent Auto 9.9 % (2-11); Neutrophils Absolute Auto 4.1 x10*3/uL (2.0-8.3); Neutrophils Percent Auto 73.4 % (45-73); Platelet Count 292 X10*3/uL (160-400); Red Blood Count 4.55 X10*6/uL (4.20-5.50); Red Cell Distribution Width 12.4 % (11.0-16.0); White Blood Count 5.6 X10*3/uL (4.8-10.8)
[2024-04-21 12:29] LABS: Iron 146 mcg/dL (30-160); Percent Iron Saturation 41 % (15-50); Total Iron Binding Capacity 352 mcg/dL (228-428); Unsaturated Iron Binding 206 ug/dL
[2024-04-21 12:45] LABS: Ferritin 33 ng/mL (10-250)
== END 2024-04-21 10:58 | disposition home or self-care (01) ==
LOC: HO.BBR 10:57
PROVIDERS: Visit Provider Physician Assistant Medical
DX: E83.110 Hereditary hemochromatosis (principal)
CPT/HCPCS: 36415; 82728; 83540; 85025

== ENCOUNTER 2024-06-16 10:43 | Outpatient (REF) | payer MEDICARE, OTHER, SELFPAY ==
[2024-06-16 11:07] LABS: MANUAL DIFF FLAG NO
[2024-06-16 11:10] LABS: Basophils Percent Auto 0.8 % (0-2); Eosinophils Absolute Auto 0.1 X10*3/uL (0.0-0.4); Eosinophils Percent Auto 2.3 % (0-4); Hematocrit 43.2 % (37.0-47.0); Hemoglobin 14.6 g/dl (12.0-16.0); Lymphocytes Absolute Auto 0.7 X10*3/uL (1.2-4.9); Lymphocytes Percent Auto 14.9 % (20-40); Mean Corpuscular HGB Conc 33.8 g/dl (31.0-35.0); Mean Corpuscular Hemoglobin 31.3 pg (27.0-33.0); Mean Corpuscular Volume 92.5 fL (80.0-98.0); Monocytes Absolute Auto 0.6 X10*3/uL (0.1-1.2); Monocytes Percent Auto 13.4 % (2-11); Neutrophils Absolute Auto 3.3 x10*3/uL (2.0-8.3); Neutrophils Percent Auto 68.6 % (45-73); Platelet Count 293 X10*3/uL (160-400); Red Blood Count 4.67 X10*6/uL (4.20-5.50); Red Cell Distribution Width 12.7 % (11.0-16.0); White Blood Count 4.8 X10*3/uL (4.8-10.8)
[2024-06-16 12:18] LABS: Iron 161 mcg/dL (30-160); Percent Iron Saturation 46 % (15-50); Total Iron Binding Capacity 353 mcg/dL (228-428); Unsaturated Iron Binding 192 ug/dL
[2024-06-16 12:39] LABS: Ferritin 30 ng/mL (10-250)
== END 2024-06-16 10:44 | disposition home or self-care (01) ==
LOC: HO.BBR 10:43
PROVIDERS: Visit Provider Physician Assistant Medical
DX: E83.110 Hereditary hemochromatosis (principal)
CPT/HCPCS: 36415; 82728; 83540; 85025

== ENCOUNTER 2024-08-11 11:03 | Outpatient (REF) | payer MEDICARE, OTHER, SELFPAY ==
[2024-08-11 11:19] LABS: MANUAL DIFF FLAG NO
[2024-08-11 11:21] LABS: Basophils Percent Auto 0.4 % (0-2); Eosinophils Absolute Auto 0.1 X10*3/uL (0.0-0.4); Eosinophils Percent Auto 2.1 % (0-4); Hematocrit 44.2 % (37.0-47.0); Hemoglobin 14.9 g/dl (12.0-16.0); Imm Gran Abs Auto 0.01 X10*3/uL (0.00-0.03); Imm Gran Pct Auto 0.2 % (0.0-0.4); Lymphocytes Absolute Auto 0.7 X10*3/uL (1.2-4.9); Lymphocytes Percent Auto 11.6 % (20-40); Mean Corpuscular HGB Conc 33.7 g/dl (31.0-35.0); Mean Corpuscular Hemoglobin 31.6 pg (27.0-33.0); Mean Corpuscular Volume 93.8 fL (80.0-98.0); Monocytes Absolute Auto 0.5 X10*3/uL (0.1-1.2); Monocytes Percent Auto 9.3 % (2-11); Neutrophils Absolute Auto 4.3 x10*3/uL (2.0-8.3); Neutrophils Percent Auto 76.4 % (45-73); Platelet Count 300 X10*3/uL (160-400); Red Blood Count 4.71 X10*6/uL (4.20-5.50); White Blood Count 5.6 X10*3/uL (4.8-10.8)
[2024-08-11 11:55] LABS: Iron 106 mcg/dL (30-160); Percent Iron Saturation 31 % (15-50); Total Iron Binding Capacity 346 mcg/dL (228-428); Unsaturated Iron Binding 240 ug/dL
[2024-08-11 12:06] LABS: Ferritin 27 ng/mL (10-250)
== END 2024-08-11 11:04 | disposition home or self-care (01) ==
LOC: HO.BBR 11:03
PROVIDERS: Visit Provider Physician Assistant Medical
DX: E83.110 Hereditary hemochromatosis (principal)
CPT/HCPCS: 36415; 82728; 83540; 85025

== ENCOUNTER 2024-11-09 12:24 | Outpatient (REF) | payer MEDICARE, OTHER, SELFPAY ==
[2024-11-09 12:37] LABS: MANUAL DIFF FLAG NO
[2024-11-09 12:40] LABS: Basophils Percent Auto 0.8 % (0-2); Eosinophils Absolute Auto 0.1 X10*3/uL (0.0-0.4); Eosinophils Percent Auto 2.3 % (0-4); Hematocrit 43.5 % (37.0-47.0); Hemoglobin 14.8 g/dl (12.0-16.0); Imm Gran Abs Auto 0.01 X10*3/uL (0.00-0.03); Imm Gran Pct Auto 0.2 % (0.0-0.4); Lymphocytes Absolute Auto 0.8 X10*3/uL (1.2-4.9); Lymphocytes Percent Auto 15.4 % (20-40); Mean Corpuscular Hemoglobin 30.6 pg (27.0-33.0); Mean Corpuscular Volume 90.1 fL (80.0-98.0); Monocytes Absolute Auto 0.3 X10*3/uL (0.1-1.2); Monocytes Percent Auto 6.6 % (2-11); Neutrophils Absolute Auto 3.8 x10*3/uL (2.0-8.3); Neutrophils Percent Auto 74.7 % (45-73); Platelet Count 299 X10*3/uL (160-400); Red Blood Count 4.83 X10*6/uL (4.20-5.50); Red Cell Distribution Width 13.3 % (11.0-16.0); White Blood Count 5.1 X10*3/uL (4.8-10.8)
[2024-11-09 13:20] LABS: Iron 247 mcg/dL (30-160); Percent Iron Saturation 70 % (15-50); Total Iron Binding Capacity 351 mcg/dL (228-428); Unsaturated Iron Binding 104 ug/dL
[2024-11-09 13:34] LABS: Ferritin 40 ng/mL (10-250)
== END 2024-11-09 12:25 | disposition home or self-care (01) ==
LOC: HO.BBR 12:24
PROVIDERS: Visit Provider Physician Assistant Medical
DX: E83.110 Hereditary hemochromatosis (principal)
CPT/HCPCS: 36415; 82728; 83540; 85025

== ENCOUNTER 2025-01-13 11:56 | Outpatient (REF) | payer MEDICARE, OTHER, SELFPAY ==
[2025-01-13 12:21] LABS: MANUAL DIFF FLAG NO
[2025-01-13 12:23] LABS: Basophils Percent Auto 0.3 % (0-2); Eosinophils Absolute Auto 0.1 X10*3/uL (0.0-0.4); Eosinophils Percent Auto 1.7 % (0-4); Hemoglobin 14.5 g/dl (12.0-16.0); Imm Gran Abs Auto 0.02 X10*3/uL (0.00-0.03); Imm Gran Pct Auto 0.3 % (0.0-0.4); Lymphocytes Absolute Auto 0.7 X10*3/uL (1.2-4.9); Lymphocytes Percent Auto 10.9 % (20-40); Mean Corpuscular HGB Conc 34.5 g/dl (31.0-35.0); Mean Corpuscular Hemoglobin 31.3 pg (27.0-33.0); Mean Corpuscular Volume 90.5 fL (80.0-98.0); Mean Platelet Volume 8.9 fL (9.4-12.3); Monocytes Absolute Auto 0.5 X10*3/uL (0.1-1.2); Monocytes Percent Auto 8.4 % (2-11); Neutrophils Absolute Auto 4.7 x10*3/uL (2.0-8.3); Neutrophils Percent Auto 78.4 % (45-73); Platelet Count 288 X10*3/uL (160-400); Red Blood Count 4.64 X10*6/uL (4.20-5.50); Red Cell Distribution Width 13.2 % (11.0-16.0)
[2025-01-13 13:56] LABS: Iron 137 mcg/dL (30-160); Percent Iron Saturation 39 % (15-50); Total Iron Binding Capacity 349 mcg/dL (228-428); Unsaturated Iron Binding 212 ug/dL
[2025-01-13 14:10] LABS: Ferritin 33 ng/mL (10-250)
== END 2025-01-13 11:57 | disposition home or self-care (01) ==
LOC: HO.BBR 11:56
PROVIDERS: Visit Provider Physician Assistant Medical
DX: E83.110 Hereditary hemochromatosis (principal)
CPT/HCPCS: 36415; 82728; 83540; 85025

== ENCOUNTER 2025-03-10 11:50 | Outpatient (REF) | payer MEDICARE, OTHER, SELFPAY ==
[2025-03-10 12:08] LABS: MANUAL DIFF FLAG NO
[2025-03-10 12:09] LABS: Basophils Percent Auto 0.8 % (0-2); Eosinophils Absolute Auto 0.2 X10*3/uL (0.0-0.4); Eosinophils Percent Auto 3.1 % (0-4); Hematocrit 42.2 % (37.0-47.0); Hemoglobin 14.4 g/dl (12.0-16.0); Imm Gran Abs Auto 0.02 X10*3/uL (0.00-0.03); Imm Gran Pct Auto 0.4 % (0.0-0.4); Lymphocytes Absolute Auto 0.8 X10*3/uL (1.2-4.9); Lymphocytes Percent Auto 15.8 % (20-40); Mean Corpuscular HGB Conc 34.1 g/dl (31.0-35.0); Mean Corpuscular Hemoglobin 30.6 pg (27.0-33.0); Mean Corpuscular Volume 89.8 fL (80.0-98.0); Mean Platelet Volume 8.9 fL (9.4-12.3); Monocytes Absolute Auto 0.6 X10*3/uL (0.1-1.2); Monocytes Percent Auto 11.5 % (2-11); Neutrophils Absolute Auto 3.5 x10*3/uL (2.0-8.3); Neutrophils Percent Auto 68.4 % (45-73); Platelet Count 305 X10*3/uL (160-400); Red Cell Distribution Width 12.8 % (11.0-16.0); White Blood Count 5.1 X10*3/uL (4.8-10.8)
[2025-03-10 12:43] LABS: Iron 111 mcg/dL (30-160); Percent Iron Saturation 30 % (15-50); Total Iron Binding Capacity 366 mcg/dL (228-428); Unsaturated Iron Binding 255 ug/dL
[2025-03-10 12:55] LABS: Ferritin 19 ng/mL (10-250)
== END 2025-03-10 11:51 | disposition home or self-care (01) ==
LOC: HO.BBR 11:50
PROVIDERS: Visit Provider Physician Assistant Medical
DX: E83.110 Hereditary hemochromatosis (principal)
CPT/HCPCS: 36415; 82728; 83540; 85025

== ENCOUNTER 2025-05-05 14:10 | Outpatient (REF) | payer MEDICARE, OTHER, SELFPAY ==
[2025-05-05 14:22] LABS: Basophils Percent Auto 0.6 % (0-2); Eosinophils Absolute Auto 0.2 X10*3/uL (0.0-0.4); Eosinophils Percent Auto 3.6 % (0-4); Hematocrit 40.2 % (37.0-47.0); Hemoglobin 13.5 g/dl (12.0-16.0); Imm Gran Abs Auto 0.01 X10*3/uL (0.00-0.03); Imm Gran Pct Auto 0.2 % (0.0-0.4); Lymphocytes Absolute Auto 0.8 X10*3/uL (1.2-4.9); Lymphocytes Percent Auto 16.6 % (20-40); MANUAL DIFF FLAG NO; Mean Corpuscular HGB Conc 33.6 g/dl (31.0-35.0); Mean Corpuscular Hemoglobin 29.7 pg (27.0-33.0); Mean Corpuscular Volume 88.5 fL (80.0-98.0); Mean Platelet Volume 9.2 fL (9.4-12.3); Monocytes Absolute Auto 0.6 X10*3/uL (0.1-1.2); Monocytes Percent Auto 12.6 % (2-11); Neutrophils Absolute Auto 3.1 x10*3/uL (2.0-8.3); Neutrophils Percent Auto 66.4 % (45-73); Platelet Count 339 X10*3/uL (160-400); Red Blood Count 4.54 X10*6/uL (4.20-5.50); Red Cell Distribution Width 14.1 % (11.0-16.0); White Blood Count 4.7 X10*3/uL (4.8-10.8)
[2025-05-05 15:08] LABS: Iron 67 mcg/dL (30-160); Percent Iron Saturation 18 % (15-50); Total Iron Binding Capacity 366 mcg/dL (228-428); Unsaturated Iron Binding 299 ug/dL
[2025-05-05 15:16] LABS: Ferritin 15 ng/mL (10-250)
== END 2025-05-05 14:11 | disposition home or self-care (01) ==
LOC: HO.BBR 14:10
PROVIDERS: Visit Provider Physician Assistant Medical
DX: E83.110 Hereditary hemochromatosis (principal)
CPT/HCPCS: 36415; 82728; 83540; 85025

== ENCOUNTER 2025-07-19 15:21 | Outpatient (REF) | payer MEDICARE, SELFPAY ==
[2025-07-19 15:32] LABS: MANUAL DIFF FLAG NO
[2025-07-19 15:33] LABS: Hematocrit 38.5 % (37.0-47.0); Hemoglobin 12.7 g/dl (12.0-16.0); Imm Gran Abs Auto 0.03 X10*3/uL (0.00-0.03); Imm Gran Pct Auto 0.4 % (0.0-0.4); Lymphocytes Absolute Auto 0.9 X10*3/uL (1.2-4.9); Mean Corpuscular HGB Conc 33.0 g/dl (31.0-35.0); Mean Corpuscular Hemoglobin 28.0 pg (27.0-33.0); Mean Corpuscular Volume 85.0 fL (80.0-98.0); NRBC Abs Auto 0.000 X10*3/uL (0.0-0.012); NRBC Pct Auto 0.0 /100WBC (0.0-0.2); Platelet Count 307 X10*3/uL (160-400); Red Blood Count 4.53 X10*6/uL (4.20-5.50); White Blood Count 7.2 X10*3/uL (4.8-10.8)
[2025-07-19 16:42] LABS: Iron 83 mcg/dL (30-160); Percent Iron Saturation 24 % (15-50); Total Iron Binding Capacity 342 mcg/dL (228-428); Unsaturated Iron Binding 259 ug/dL
[2025-07-19 16:51] LABS: Ferritin 16 ng/mL (10-250)
--- OUTSIDE RECORDS SUMMARY | 2025-07-19 16:56 | XMS_ITS | Encounter Summary ---
Author Organization [facility] Address [address] [place] [address] Phone Care Team Providers Care Marketing Business Analyst Name Role Phone Audra Kenyon Kwabena ACCOUNTANCY PROFESSOR Unavailable [phone] Mariangel Roblero CNP Primary Care Provider Encounter Details Date Type Department Care Team (Late Contact Info) Description 01/01/2022 Transcribe Orders Virtual Department [address] [place] [address] Mariangel Roblero CNP 14 [facility] [address] [place] [address] Breast screening (Primary Dx) Social History Tobacco Use Types Packs/Day Years Used Date Smoking Tobacco: Never Smokeless Tobacco: Never Alcohol Use Standard Drinks/Week Comments Yes 2 (1 standard drink = 0.6 oz pur e alcohol) Comments No Sex and Gender Information Value Date Recorded Sex Assigned at Not on file Legal Sex Female 4:11 PM EST Gender Identity Not on file Sexual Orientation Not on file documented as of this encounter Plan of Treatment Upcoming Encounters Date Type Department Care Team (Late Contact Info) Description 09/22/2025 10:00 AM EDT Office Visit [facility] [place] [facility] 14 [facility] [address] [place], [place] [phone] Mariangel Roblero CNP 14 [facility] [address] [place], [place] [phone] [email or web address] documented as of this encounter Results * (ABNORMAL) BI MAMMOGRAM SCREENING WITH TOMOSYNTHESIS WITH CAD (BILATERAL) (01/24/2022 2:15 PM EST) Anatomical Region Laterality Modality Breast Left, Breast Right, Breast Bilateral Bila teral Mammography 01/24/2022 2:27 PM EST Impressions 01/24/2022 3:51 PM EST Recommend recalling the patient for probably benign right breast microcalcifications. Radiology department will attempt to recall the patient. Recall views: Spot mag right cc and ML views. BI-RADS CATEGORY: 0 - Incomplete. Need additional imaging evaluation. DENSITY: There are scattered fibroglandular densities. LEFT RECOMMENDATION DUE DATE: 12 Months Left Mammography Screening RIGHT RECOMMENDATION DUE DATE: 1 Month Right Additional Imaging Narrative 01/24/2022 3:51 PM EST 66-year-old female with no current breast symptoms. Comparison made to previous on 01/06/2021 and as far back as 09/26/2010. Interpretation made in conjunction with computer-aided detection and tomosynthesis. There are scattered areas of fibroglandular density. Mild increase in number of loosely grouped right upper outer calcifications. Chronic benign right breast vascular calcifications. No mass or distortion. Mariangel Roblero CNP IMG MG EXAMS Final Result documented in this encounter Visit Diagnoses Diagnosis Breast screening- Primary Breast screening, unspecified Breast screening Breast screening, unspecified documented in this encounter Additional Health Concerns Infection Onset Date Last Indicated Resolved Time CoV-Risk 04/17/2022 04/18/2022 04/29/2022 1:22 AM EDT CoV-Risk 11/07/2023 11/07/2023 11/18/2023 1:22 AM EST Assessment Noted Time PHQ-2 Depression Total Score: 2 08/29/20 21 11:11 AM EDT documented as of this encounter Care Teams Marketing Business Analyst Relationship Specialty Start Date End Date Mariangel Roblero CNP [address] [place] [address] [place] [address] PCP - General Internal Medicine 08/02/20 Audra Kenyon NP [address] [place] [address] Historical LMR Provider 09/14/17 documented as of this encounter Additional Source Comments The information contained in this document represents components of the legal health record. It is not the complete legal health record.[facility]
--- OUTSIDE RECORDS SUMMARY | 2025-07-19 16:56 | XMS_ITS | Encounter Summary ---
Author Organization [facility] Address [address] [place] [address] Phone Care Team Providers Care Heating Technician Name Role Phone Maynorbeatrice Audra Yuan DIELECTRIC TESTER Unavailable [phone] Mariangel Roblero CNP Primary Care Provider Encounter Details Date Type Department Care Team (Late st Contact Info) Description 03/31/2024 Procedure Pass [facility], [address] [address] Social History Tobacco Use Types Packs/Day Years Used Date Smoking Tobacco: Never Smokeless Tobacco: Never Alcohol Use Standard Drinks/Week Comments Yes 2 (1 standard drink = 0.6 oz pur e alcohol) Education Answer Date Recorded Are you interested in more education? Not on chuy e 03/21/2023 Are you concerned about learning? Not on file 03/21/2023 No 03/21/2023 No 03/21/2023 Digital Access Answer Date Recorded No 04/22/2023 No 04/22/2023 Reliable internet access at home? Not on file 04/22/2023 Device with a working camera? Not on file Comments No Sex and Gender Information Value Date Recorded Sex Assigned at Not on file Legal Sex Female 4:11 PM EST Gender Identity Not on file Sexual Orientation Not on file documented as of this encounter Plan of Treatment Upcoming Encounters Date Type Department Care Team (Late st Contact Info) Description 09/22/2025 10:00 AM EDT Office Visit [facility] Internal Medicine [address] [address] Mariangel Roblero CNP 14 [facility] [address] [place] [address] [email or web address] documented as of this encounter Visit Diagnoses Not on filedocumented in this encounter Additional Health Concerns Assessment Noted Time PHQ-2 Depression Total Score: 0 09/04/20 23 11:17 AM EDT documented as of this encounter Care Teams Heating Technician Relationship Specialty Start Date End Date Mariangel Roblero CNP 14 [facility] [address] [place] [address] PCP - General Internal Medicine 08/02/20 Audra Kenyon, BECKI [address] [place] [address] Historical LMR Provider 09/14/17 documented as of this encounter Additional Source Comments The information contained in this document represents components of the legal health record. It is not the complete legal health record.[facility]
--- OUTSIDE RECORDS SUMMARY | 2025-07-19 16:56 | XMS_ITS | Encounter Summary ---
Author Organization [facility] Address [email or web address] [place] [address] Phone Care Team Providers Care Bundle Wrapper Name Role Phone Chantale Audra Kwabena PROGRAM MANAGER ENVIRONMENTAL PLANNING Unavailable [phone] Mariangel Roblero NATURAL SCIENCES MANAGER Primary Care Provider Encounter Details Date Type Department Care Team (Late st Contact Info) Description 03/31/2024 Transcribe Orders Virtual Department [address] [place] [address] Mariangel Roblero, NATURAL SCIENCES MANAGER 14 [facility] [address] [place] [phone] [email or web address] Breast screening (Primary Dx) Social History Tobacco [...] EDT Office Visit [facility] [place] [facility] 14 [facility] [address] [place] [address] [place] Mariangel Woody, NATURAL SCIENCES MANAGER 14 [facility] [address] [place] [address] documented as of this encounter Results * BI MAMMOGRAM SCREENING WITH TOMOSYNTHESIS WITH CAD (BILATERAL) (07/08/2024 11:59 AM EDT) Anatomical Region Laterality Modality Breast Left, Breast Right, Breast Bilateral Bila teral Mammography 07/08/2024 9:40 PM EDT Impressions 07/08/2024 9:42 PM EDT No mammographic evidence of malignancy in either breast. Annual screening mammography is recommended. BI-RADS 1 NEGATIVE The patient will be notified of the results and recommendations. Narrative 07/08/2024 9:42 PM EDT BI MAMMOGRAM SCREENING WITH TOMOSYNTHESIS WITH CAD (BILATERAL) Additional patient information: Screening. COMPARISON: Comparison is made with relevant prior imaging. Breast composition: There are scattered areas of fibroglandular density. FINDINGS: No abnormal masses, suspicious calcifications, or other significant findings are identified mammographically in either breast. Procedure Note Arabella Valenzuela MD - 07/08/2024 BI MAMMOGRAM SCREENING WITH TOMOSYNTHESIS WITH CAD (BILATERAL) Additional patient information: Screening. COMPARISON: Comparison is made with relevant prior imaging. Breast composition: There are scattered areas of fibroglandular density. FINDINGS: No abnormal masses, suspicious calcifications, or other significantfindings are identified mammographically in either breast. IMPRESSION: No mammographic evidence of malignancy in either breast. Annual screening mammography is recommended. BI-RADS 1 NEGATIVE The patient will be notified of the results and recommendations. us Mariangel Roblero CNP IMG MG EXAMS Final Result documented in this encounter Visit Diagnoses Diagnosis Breast screening- Primary Breast screening, unspecified Breast screening Breast screening, unspecified documented in this encounter Additional Health Concerns Assessment Noted Time PHQ-2 Depression Total Score: 0 09/04/20 23 11:17 AM EDT documented as of this encounter Care Teams Bundle Wrapper Relationship Specialty Start Date End Date Mariangel Roblero CNP [address] [place] [address] [address] [place] [address] [email or web address] PCP - General Internal Medicine 08/02/20 Audra Kenyon NP [address] [place] [address] Historical LMR Provider 09/14/17 documented as of this encounter Additional Source Comments The information contained in this document represents components of the legal health record. It is not the complete legal health record.[facility]
--- OUTSIDE RECORDS SUMMARY | 2025-07-19 16:56 | XMS_ITS | Encounter Summary ---
Author Organization [facility] Address [address] [place] [address] Phone Care Team Providers Care Rubber Off Name Role Phone Audra Kenyon Kwabena CANTEEN MANAGER Unavailable [phone] Mariangel Roblero CNP Primary Care Provider Encounter Details Date Type Department Care Team (Late st Contact Info) Description 02/27/2023 Procedure Pass [facility], [address] [address] Social History Tobacco Use Types Packs/Day Years [...] Description 09/22/2025 10:00 AM EDT Office Visit [facility] Internal Medicine 14 [facility] [address] [place], [place] [phone] Mariangel Roblero, MISAEL 14 [facility] [address] [place], [place] [phone] documented as of this encounter Visit Diagnoses Not on filedocumented in this encounter Additional Health Concerns Infection Onset Date Last Indicated Resolved Time CoV-Risk 11/07/2023 11/07/2023 11/18/2023 1:22 AM EST Assessment Noted Time PHQ-2 Depression Total Score: 0 08/31/20 22 11:21 AM EDT documented as of this encounter Care Teams Rubber Off Relationship Specialty Start Date End Date Mariangel Roblero CNP [address] [place] [address] [address] [place] [address] [email or web address] PCP - General Internal Medicine 08/02/20 Audra Kenyon NP [address] [place] [address] Historical LMR Provider 09/14/17 documented as of this encounter Additional Source Comments The information contained in this document represents components of the legal health record. It is not the complete legal health record.[facility]
--- OUTSIDE RECORDS SUMMARY | 2025-07-19 16:56 | XMS_ITS | Encounter Summary ---
Author Organization [facility] Address [address] [place] [address] Phone Care Team Providers Care Wrecking Crane Engine Operator Name Role Phone Audra Kenyon Kwabena APPLIANCE ADJUSTER Unavailable [phone] Mariangel Roblero CNP Primary Care Provider Encounter Details Date Type Department Care Team (Late Contact Info) Description 02/27/2023 Transcribe Orders Virtual Department [address] [place] [address] Mariangel Roblero CNP 14 [facility] [address] [place] [address] Breast screening (Primary Dx) Social History Tobacco [...] EDT Office Visit [facility] [place] [facility] 14 [facility] [address] [place], [place] [phone] Mariangel Roblero CNP 14 [facility] [address] [place], [place] [phone] [email or web address] documented as of this encounter Results * BI MAMMOGRAM SCREENING WITH TOMOSYNTHESIS WITH CAD (BILATERAL) (03/20/2023 10:24 AM EDT) Anatomical Region Laterality Modality Breast Left, Breast Right, Breast Bilateral Bila teral Mammography 03/20/2023 4:51 PM EDT Impressions 03/21/2023 2:12 PM EDT BILATERAL BREASTS: Benign, no evidence of malignancy. Recommend bilateral annual screening mammography in 12 months. Bi-RADS: BI-RADS CATEGORY: 2 - Benign finding. RIGHT RECOMMENDATION DUE DATE: 12 Months Recommendation: Right Mammography Screening LEFT RECOMMENDATION DUE DATE: 12 Months Recommendation: Left Mammography Screening Narrative 03/21/2023 2:12 PM EDT STUDY: Bilateral screening mammography with tomosynthesis and CAD TECHNIQUE: Bilateral full-field digital screening mammography is obtained and read in conjunction with computer-aided detection. Tomosynthesis as well as 2-D C view imaging were obtained. COMPARISON: Comparison made to multiple prior studies dating back to February 2016. DENSITY: There are scattered fibroglandular densities. BILATERAL BREASTS: No new masses, suspicious calcifications or other abnormalities are seen. No significant interval change. Procedure Note Carol Freeman MD - 03/21/2023 STUDY: Bilateral screening mammography with tomosynthesis and CAD TECHNIQUE: Bilateral full-field digital screening mammography is obtainedand read in conjunction with computer-aided detection. Tomosynthesis aswell as 2-D C view imaging were obtained. COMPARISON: Comparison made to multiple prior studies dating back to February2016. DENSITY: There are scattered fibroglandular densities. BILATERAL BREASTS: No new masses, suspicious calcifications or otherabnormalities are seen. No significant interval change. IMPRESSION: BILATERAL BREASTS: Benign, no evidence of malignancy. Recommend bilateralannual screening mammography in 12 months. Bi-RADS: BI-RADS CATEGORY: 2 - Benign finding. RIGHT RECOMMENDATION DUE DATE: 12 Months Recommendation: Right Mammography Screening LEFT RECOMMENDATION DUE DATE: 12 Months Recommendation: Left Mammography Screening Mariangel Roblero CEMENTER OIL WELL IMG MG EXAMS Final Result documented in this encounter Visit Diagnoses Diagnosis Breast screening- Primary Breast screening, unspecified Breast screening Breast screening, unspecified documented in this encounter Additional Health Concerns Infection Onset Date Last Indicated Resolved Time CoV-Risk 11/07/2023 11/07/2023 11/18/2023 1:22 AM EST Assessment Noted Time PHQ-2 Depression Total Score: 0 08/31/20 11:21 AM EDT documented as of this encounter Care Teams Wrecking Crane Engine Operator Relationship Specialty Start Date End Date Mariangel Roblero CNP [address] [place] [address] [address] [place] [address] [email or web address] PCP - General Internal Medicine 08/02/20 Audra Kenyon NP [address] [place] [address] Historical LMR Provider 09/14/17 documented as of this encounter Additional Source Comments The information contained in this document represents components of the legal health record. It is not the complete legal health record.[facility]
--- OUTSIDE RECORDS SUMMARY | 2025-07-19 16:56 | XMS_ITS | Encounter Summary ---
Author Organization [facility] Address [address] [facility] [address] [place] [address] Phone Care Team Providers Care Base Engineer Name Role Phone MaynormabelAudra drummond RETAIL AND RESTAURANT Unavailable Ed Casey DO Unavailable Savana Casiano MD Unavailable [phone] Jeannette Lynn MD Unavailable Mariangel Roblero ICE MAKER Primary Care Provider Encounter Details Date Type Department Care Team (Late Contact Info) Description 01/04/2021 Ancillary Orders Virtual Department [address] [place] [address] Mariangel Roblero, ICE MAKER 14 [facility] [address] [place] [phone] [email or web address] Breast screening Social History Tobacco Use Types Packs/Day Years Used Date Smoking Tobacco: Never Smokeless Tobacco: Never Alcohol Use Standard Drinks/Week Comments No 0 (1 standard drink = 0.6 oz pur [...] 09/22/2025 10:00 AM EDT Office Visit [facility] Medicine 14 [facility] [address] [place] [address] Mariangel Roblero CNP 14 [facility] [address] [place] [address] documented as of this encounter Results * BI MAMMOGRAM SCREENING WITH TOMOSYNTHESIS WITH CAD (BILATERAL) (01/06/2021 12:31 PM EST) Anatomical Region Laterality Modality Breast Left, Breast Right, Breast Bilateral Bila teral Mammography 01/06/2021 12:3 9 PM EST Impressions 01/06/2021 12:41 PM EST No findings suspicious for malignancy are identified. In the absence of a worrisome palpable abnormality, annual screening mammography is recommended. BI-RADS CATEGORY: 1 - Negative. DENSITY: The breast tissue is heterogeneously dense, which could obscure a lesion on mammography. Narrative 01/06/2021 12:41 PM EST COMPARISON: 03/05/2014 through 09/17/2019 Bilateral 3-D tomosynthesis with 2-D reconstructions in the CC and MLO projection. Computer-aided detection system also utilized. No new mass, asymmetry, architectural distortion or suspicious calcifications have become apparent on either side. Procedure Note Sy Mullen MD - 01/06/2021 COMPARISON: 03/05/2014 through 09/17/2019 Bilateral 3-D tomosynthesis with 2-D reconstructions in the CC and MLOprojection. Computer-aided detection system also utilized. No new mass, asymmetry, architectural distortion or suspiciouscalcifications have become apparent on either side. IMPRESSION: No findings suspicious for malignancy are identified. In the absence of aworrisome palpable abnormality, annual screening mammography isrecommended. BI-RADS CATEGORY: 1 - Negative. DENSITY: The breast tissue is heterogeneously dense, which could obscurea lesion on mammography. Mariangel Roblero MISAEL IMG MG EXAMS Final Result documented in this encounter Visit Diagnoses Diagnosis Breast screening Breast screening, unspecified Breast screening Breast screening, unspecified documented in this encounter Additional Health Concerns Infection Onset Date Last Indicated Resolved Time CoV-Risk 03/08/2021 03/08/2021 03/08/2021 4:47 PM EDT COVID-19 Comment:Setting expiration date via import due to [employer] policy change to align auto-expiration of infection statuses for patients to apply to employees as of 05/08/2021; contact [facility] with any questions. 03/08/2021 03/08/2021 05/09/2021 1:23 AM E DT CoV-Risk 04/17/2022 04/18/2022 04/29/2022 1:22 AM EDT CoV-Risk 11/07/2023 11/07/2023 11/18/2023 1:22 AM EST documented as of this encounter Care Teams Base Engineer Relationship Specialty Start Date End Date Mariangel Roblero CNP [address] [place] [address] [address] [place] [address] [email or web address] PCP - General Internal Medicine 08/02/20 Audra Kenyon NP [address] [place] [address] Historical LMR Provider 09/14/17 Ed Casey DO [address] [place] [address] [facility] [address] [email or web address] Historical LMR Provider 09/14/17 12/02/21 Savana Casiano MD [address] [place] [address] Historical LMR Provider 09/14/17 2 Jeannette Lynn MD [address] [place] [address] [facility] [address] [email or web address] Historical LMR Provider 09/14/17 documented as of this encounter Additional Source Comments The information contained in this document represents components of the legal health record. It is not the complete legal health record.[facility]
--- OUTSIDE RECORDS SUMMARY | 2025-07-19 16:56 | XMS_ITS | Encounter Summary ---
Author Organization [facility] Address [address] [facility] [address] [place] [address] Phone Care Team Providers Care Licensed Veterinary Technician Name Role Phone Audra Kenyon AGRIBUSINESS PROFESSOR Unavailable [phone] Ed Casey DO Unavailable [phone] Savana Casiano MD Unavailable [phone] Jeannette Lynn MD Unavailable Audra Kenyon AGRIBUSINESS PROFESSOR Primary Care Provider Mariangel Roblero MANAGER WOMEN Primary Care Provider Encounter Details Date Type Department Care Team (Late st Contact Info) Description 08/27/2019 Ancillary Orders Virtual Department [address] [place] [address] Audra Kenyon, AGRIBUSINESS PROFESSOR [address] [place] [address] Breast screening Social History Tobacco Use Types [...] Description 09/22/2025 10:00 AM EDT Office Visit [facility] Internal Medicine 14 [facility] [address] [place] [address] Mariangel Roblero, MANAGER WOMEN 14 [facility] [address] [place] [address] [email or web address] documented as of this encounter Results * BI MAMMOGRAM SCREENING WITH TOMOSYNTHESIS WITH CAD (BILATERAL) (09/17/2019 3:48 PM EDT) Anatomical Region Laterality Modality Breast Left, Breast Right, Breast Bilateral Bila teral Mammography 09/17/2019 4:20 PM EDT Impressions 09/17/2019 4:23 PM EDT No mammographic evidence of malignancy. Recommend routine annual surveillance. BI-RADS CATEGORY: 2 - Benign finding. DENSITY: The breast tissue is heterogeneously dense, an appearance which lowers the sensitivity of mammography. POS - CDHMAMA Narrative 09/17/2019 4:23 PM EDT 64-year-old female with no current breast symptoms. Comparison made to previous on 06/06/2018 and as far back as 12/08/2012. Interpretation made in conjunction with computer-aided detection and tomosynthesis. The breasts are heterogeneously dense, which may obscure small masses. Benign right breast vascular calcifications again noted. There are no suspicious masses, areas of architectural distortion, or suspicious clusters of microcalcifications. Procedure Note Nurys Soler MD - 09/17/2019 64-year-old female with no current breast symptoms. Comparison made toprevious on 06/06/2018 and as far back as 12/08/2012. Interpretation madein conjunction with computer-aided detection and tomosynthesis. The breasts are heterogeneously dense, which may obscure small masses.Benign right breast vascular calcifications again noted. There are no suspicious masses, areas of architectural distortion, orsuspicious clusters of microcalcifications. IMPRESSION: No mammographic evidence of malignancy. Recommend routine annualsurveillance. BI-RADS CATEGORY: 2 - Benign finding. DENSITY: The breast tissue is heterogeneously dense, an appearance whichlowers the sensitivity of mammography. POS - CDHMAMA Audra Kenyon AGRIBUSINESS PROFESSOR IMG MG EXAMS Final R esult documented in this encounter Visit Diagnoses Diagnosis [...] documented as of this encounter Care Teams Licensed Veterinary Technician Relationship Specialty Start Date End Date Audra Kenyon NP [address] [place] [address] PCP - General Internal Medicine 11/25/17 08/01/20 Mariangel Roblero CNP [address] [place] [address] [email or web address] PCP - General Internal Medicine 08/02/20 Audra Kenyon NP [address] [place] [address] Historical LMR Provider 09/14/17 Ed Casey DO [address] [place] [address] Orthopedics & Sports Medicine, [facility] [place] [address] Historical LMR Provider 09/14/17 12/02/21 Savana Casiano MD [address] [place] [address] Historical LMR Provider 09/14/17 2 Jeannette Lynn MD [address] [place] [address] Orthopedics & Sports Medicine, [place] [address] [email or web address] Historical LMR Provider 09/14/17 documented as of this encounter Additional Source Comments The information contained in this document represents components of the legal health record. It is not the complete legal health record.[facility]
--- OUTSIDE RECORDS SUMMARY | 2025-07-19 16:56 | XMS_ITS | Encounter Summary ---
Author Organization [facility] Address [address] [place] [address] Phone Care Team Providers Care Blueprint Machine Operator Name Role Phone Maynorbeatrice Audra Kwabena PERCUSSION INSTRUMENT TUNER Unavailable Ed Casey DO Unavailable Savana Casiano MD Unavailable [phone] Jeannette Lynn MD Unavailable Mariangel Roblero PRECISION JIG GRINDER Primary Care Provider Encounter Details Date Type Department Care Team (Late st Contact Info) Description 01/04/2021 Procedure Pass [facility], [address] [address] Social History Tobacco Use Types Packs/Day Years [...] Description 09/22/2025 10:00 AM EDT Office Visit [facility] Internal Medicine 14 [facility] [address] [place], [place] [phone] Mariangel Roblero, PRECISION JIG GRINDER 14 [facility] [address] [place], [place] [phone] documented as of this encounter Visit Diagnoses Not on filedocumented in this encounter Additional Health Concerns Infection Onset Date Last Indicated Resolved Time CoV-Risk 03/08/2021 03/08/2021 03/08/2021 4:47 PM EDT COVID-19 Comment:Setting expiration date via import due to [facility] policy change to align auto-expiration of infection statuses for patients to apply to employees as of 05/08/2021; contact [facility] with any questions. 03/08/2021 03/08/2021 05/09/2021 1:23 AM E DT CoV-Risk 04/17/2022 04/18/2022 04/29/2022 1:22 AM EDT CoV-Risk 11/07/2023 11/07/2023 11/18/2023 1:22 AM EST documented as of this encounter Care Teams Blueprint Machine Operator Relationship Specialty Start Date End Date Mariangel Roblero CNP [address] [place] [address] PCP - General Internal Medicine 08/02/20 Audra Kenyon NP [address] [place] [address] Historical LMR Provider 09/14/17 Ed Casey DO [address] [place] [address] Orthopedics & Sports Medicine, [place] [address] [email or web address] Historical LMR Provider 09/14/17 12/02/21 Savana Casiano MD [address] [place] [address] Historical LMR Provider 09/14/17 Jeannette Reyna MD [address] [place] [address] Orthopedics & Sports Medicine, [place] [address] [email or web address] Historical LMR Provider 09/14/17 documented as of this encounter Additional Source Comments The information contained in this document represents components of the legal health record. It is not the complete legal health record.[facility]
--- OUTSIDE RECORDS SUMMARY | 2025-07-19 16:56 | XMS_ITS | Encounter Summary ---
Author Organization [facility] Address [address] [place] [address] Phone Care Team Providers Care Catering Coordinator Name Role Phone Audra Kenyon ALBACORE FISHING BOAT CREWMAN Unavailable [phone] Mariangel Roblero CNP Primary Care Provider Encounter Details Date Type Department Care Team (Late st Contact Info) Description 03/17/2025 Procedure Pass [facility], [address] [address] Social History Tobacco Use Types Packs/Day Years [...] with a working camera? Not on file Intimate Partner Violence Answer Date R ecorded Denied Basic Needs Not on file 09/16/2024 In the past 12 months have y ou been in a relationship with a person who hurts, threatens, or tries to control you? No 09/16/2024 Worried food would run out Not on file 09/16 In the past 12 months have y ou been in a relationship with a person who hurts, threatens, or tries to control you? No 09/16/2024 Comments No Sex and Gender Information Value Date Recorded Sex Assigned at Not on file Legal Sex Female 4:11 PM EST Gender Identity Not on file Sexual Orientation Not on file documented as of this encounter Plan of Treatment Upcoming Encounters Date Type Department Care Team (Late st Contact Info) Description 09/22/2025 10:00 AM EDT Office Visit [facility] Internal Medicine 14 [facility] [address] [place] [address] Mariangel Roblero CNP 14 [facility] [address] [place] [address] documented as of this encounter Visit Diagnoses Not on filedocumented in this encounter Additional Health Concerns Assessment Noted Time PHQ-2 Depression Total Score: 1 09/16/20 24 9:14 AM EDT documented as of this encounter Care Teams Catering Coordinator Relationship Specialty Start Date End Date Mariangel Roblero CNP 14 [facility] [address] [place] [address] PCP - General Internal Medicine 08/02/20 Audra Kenyon, BECKI [address] [place] [address] Historical LMR Provider 09/14/17 documented as of this encounter Additional Source Comments The information contained in this document represents components of the legal health record. It is not the complete legal health record.[facility]
--- OUTSIDE RECORDS SUMMARY | 2025-07-19 16:56 | XMS_ITS | Encounter Summary ---
Author Organization [facility] Address [address] [facility] [address] [place] [address] Phone Care Team Providers Care Laboratory Worker Name Role Phone Audra Kenyon OIL RECOVERY UNIT OPERATOR Unavailable Ed Casey DO Unavailable [phone] Savana Casiano MD Unavailable [phone] Jeannette Lynn MD Unavailable [phone] Audra Kenyon OIL RECOVERY UNIT OPERATOR Primary Care Provider Mariangel Roblero PATIENT CARE ASSISTANT Primary Care Provider Encounter Details Date Type Department Care Team (Latest Contact Info) Description 07/15/2018 Ancillary Orders [facility], [address] [address] Emir Dolan MD [address] [place] [address] [email or web address] Osteoarthritis of spine with myelopathy, unspecified spinal region Social History Tobacco Use Types Packs/Day Years [...] EDT Office Visit [facility] Internal Medicine 14 [facility] [address] [place] [address] Mariangel Roblero, PATIENT CARE ASSISTANT 14 [facility] [address] [place] [address] [email or web address] documented as of this encounter Results * XR CERVICAL SPINE 4-5 VIEWS (07/15/2018 7:25 AM EDT) Anatomical Region Laterality Modality C-spine Radiographic Alisson ging 07/15/2018 7:48 AM EDT Impressions 07/15/2018 7:50 AM EDT Chronic degenerative disc disease and right neural foraminal narrowing at the C5-6 level. Minimal left C3-4 foraminal narrowing due to facet overgrowth, of doubtful significance. POS [id number] Narrative 07/15/2018 7:50 AM EDT COMPARISON: 08/02/2015 MR FINDINGS: Frontal, lateral, oblique, and AP open mouth views were obtained. There is chronic degenerative disc change and reversal of normal cervical lordosis at the C5-6 level. No fracture, subluxation, or other acute bony abnormalities are identified. Uncovertebral spurring causes right C5-6 neural foraminal encroachment. C4 superior facet overgrowth causes minimal narrowing of the dorsal aspect of the left C3-4 neural foramen. Remaining foramina are grossly patent. Prevertebral soft tissues are within normal limits. Procedure Note Darryl Raza MD - 07/15/2018 COMPARISON: 08/02/2015 MR FINDINGS: Frontal, lateral, oblique, and AP open mouth views were obtained. Thereis chronic degenerative disc change and reversal of normal cervicallordosis at the C5-6 level. No fracture, subluxation, or other acute bonyabnormalities are identified. Uncovertebral spurring causes right C5-6neural foraminal encroachment. C4 superior facet overgrowth causesminimal narrowing of the dorsal aspect of the left C3-4 neural foramen.Remaining foramina are grossly patent. Prevertebral soft tissues arewithin normal limits. IMPRESSION: Chronic degenerative disc disease and right neural foraminal narrowing atthe C5- 6 level. Minimal left C3-4 foraminal narrowing due to facetovergrowth, of doubtful significance. POS [id number] Emir Dolan MD IMG XR SPINE Final Result documented in this encounter Visit Diagnoses Diagnosis Osteoarthritis of spine with myelopathy, unspecified spinal region Osteoarthritis of spine with myelopathy, unspecified spinal region documented in this encounter Additional Health Concerns Infection Onset Date Last Indicated Resolved Time CoV-Risk 03/08/2021 03/08/2021 03/08/2021 4:47 PM EDT COVID-19 Comment:Setting expiration date via import due to [facility] policy change to align auto-expiration of infection statuses for patients to apply to employees as of 05/08/2021; contact [facility] with any questions. 03/08/2021 03/08/2021 05/09/2021 1:23 AM E DT CoV-Risk 04/17/2022 04/18/2022 04/29/2022 1:22 AM EDT CoV-Risk 11/07/2023 11/07/2023 11/18/2023 1:22 AM EST documented as of this encounter Care Teams Laboratory Worker Relationship Specialty Start Date End Date Audra Kenyon OIL RECOVERY UNIT OPERATOR [address] [place] [address] PCP - General Internal Medicine 11/25/17 08/01/20 Mariangel Roblero, PATIENT CARE ASSISTANT [address] [place] [address] [address] [place] [address] [email or web address] PCP - General Internal Medicine 08/02/20 Audra Kenyon OIL RECOVERY UNIT OPERATOR [address] [place] [address] Historical LMR Provider 09/14/17 Ed Casey DO 4 [facility] Orthopedics & Sports Medicine, [place] [address] Historical LMR Provider 09/14/17 12/02/21 Savana Casiano MD [address], [place] [address] Historical LMR Provider 09/14/17 2 Jeannette Lynn MD 4 [facility] Orthopedics & Sports Medicine, [place] [address] [email or web address] Historical LMR Provider 09/14/17 documented as of this encounter Additional Source Comments The information contained in this document represents components of the legal health record. It is not the complete legal health record.[facility]
--- OUTSIDE RECORDS SUMMARY | 2025-07-19 16:56 | XMS_ITS | Encounter Summary ---
Author Organization [facility] Address [address] [place] [address] Phone Care Team Providers Care Orthotist Prosthetist Name Role Phone MaynormabeluAdra drummond COMFORT STATION SUPERVISOR Unavailable Ed Casey DO Unavailable Savana Casiano MD Unavailable [phone] Jeannette Lynn MD Unavailable Mariangel Roblero [facility] Primary Care Provider Encounter Details Date Type Department Care Team (Late Contact Info) Description 10/13/2021 Transcribe Orders [facility] Laboratory [address] [place] [address] Mariangel Rbolero, [facility] 14 [facility] [address] [place], [place] [id number] [email or web address] Social History Tobacco Use Types Packs/Day Years [...] Upcoming Encounters Date Type Department Care Team ([facility] Contact Info) Description 09/22/2025 10:00 AM EDT Office Visit [facility] Internal Medicine 14 [facility] [address] [place] [address] Mariangel Roblero CNP [address] [address] [email or web address] documented as of this encounter Visit Diagnoses Not on filedocumented in this encounter Additional Health Concerns Infection Onset Date Last Indicated Resolved Time CoV-Risk 04/17/2022 04/18/2022 04/29/2022 1:22 AM EDT CoV-Risk 11/07/2023 11/07/2023 11/18/2023 1:22 AM EST Assessment Noted Time PHQ-2 Depression Total Score: 2 08/29/20 11:11 AM EDT documented as of this encounter Care Teams Orthotist Prosthetist Relationship Specialty Start Date End Date Mariangel Roblero CNP [address] [address] PCP - General Internal Medicine 08/02/20 Audra Kenyon NP [address] [place] [address] Historical LMR Provider 09/14/17 Ed Casey DO [address] [place] [address] Orthopedics & Sports Medicine, [facility] [place] [address] [email or web address] Historical LMR Provider 09/14/17 12/02/21 Savana Casiano MD [address] [place] [address] Historical LMR Provider 09/14/17 Jeannette Reyna MD [address] [place] [address] [facility] [place], [place] [address] [email or web address] Historical LMR Provider 09/14/17 documented as of this encounter Additional Source Comments The information contained in this document represents components of the legal health record. It is not the complete legal health record.[facility]
--- OUTSIDE RECORDS SUMMARY | 2025-07-19 16:56 | XMS_ITS | Encounter Summary ---
Author Organization [facility] Address [address] [place] [address] Phone Care Team Providers Care Instructor Kindergarten Name Role Phone Maynorbeatrice Audra Kwabena AML ANALYST Unavailable [phone] Mariangel Roblero CNP Primary Care Provider Encounter Details Date Type Department Care Team (Latest Contact Info) Description 06/26/2023 Transcribe Orders [facility] Laboratory [address] [place] [address] Flori Chua PA 10 [place] [address] FHx: colon cancer (Primary Dx) Social History Tobacco Use Types [...] Description 09/22/2025 10:00 AM EDT Office Visit [facility] Internal Medicine 14 [facility] [address] [place] [address] Mariangel Roblero, MISAEL 14 [facility] [address] [place] [address] [email or web address] documented as of this encounter Results * (ABNORMAL) Comprehensive metabolic panel (06/26/2023 1:45 PM EDT) SODIUM 134 133 - 146 mmol/L [facility] POTASSIUM 4.8 3.3 - 5.1 mmol/L [facility] CHLORIDE 97 96 - 108 mmol/L [facility] CO2 26 21 - 35 mmol/L [facility] BUN 23(H) 6 - 19 mg/dL [facility] CREATININE 0.80 0.5 - 1.5 mg/dL [facility] GLUCOSE 94 70 - 99 mg/dL [facility] ALBUMIN 4.4 3.9 - 4.8 g/dL [facility] TOTAL PROTEIN 7.0 6.5 - 8.0 g/dL [facility] CALCIUM 9.2 8.4 - 10.3 mg/dL [facility] ALKALINE PHOSPHATASE 87 39 - 117 U/L [facility] TOTAL BILIRUBIN 0.3 0.0 - 1.2 mg/dL [facility] AST 25 0 - 37 U/L [facility] ALT 15 0 - 40 U/L [facility] GLOBULIN 2.6 1 - 4.8 g/dL [facility] EGFR 80 >59 mL/min/1.7 3m2 [facility] Comment:Estimated glomerular filtration rate calculated using the CKD-EPI refit equation. ANION GAP 16 10 - 20 mmol/L [facility] Blood 06/26/2023 1:45 PM EDT 06/26/2023 1:54 PM EDT us Flori [facility] BLOOD ORDERABLES Final Result MULLEN ANTELMO [address] [address] * CBC (06/26/2023 1:45 PM EDT) WBC 6.76 4.00 - 11.00 K/uL [facility] RBC 4.77 3.72 - 5.30 M/uL [facility] HGB 13.5 11.4 - 15.9 g/dL [facility] HCT 41.9 34.2 - 46.8 % [facility] PLT 360 140 - 430 K/uL [facility] MCV 87.8 78.0 - 97.0 fL [facility] MCH 28.3 25.0 - 33.0 pg [facility] MCHC 32.2 32.0 - 36.0 g/dL [facility] RDW 16.0 11.0 - 16.0 % [facility] MPV 9.2 8.4 - 12.8 fl [facility] Blood 06/26/2023 1:45 PM EDT 06/26/2023 1:54 PM EDT us Flori [facility] BLOOD ORDERABLES Final Result [address] [address] documented in this encounter Visit Diagnoses Diagnosis FHx: colon cancer- Primary Family history of malignant neoplasm of gastrointestinal tract documented in this encounter Additional Health Concerns Infection Onset Date Last Indicated Resolved Time CoV-Risk 11/07/2023 11/07/2023 11/18/2023 1:22 AM EST Assessment Noted Time PHQ-2 Depression Total Score: 0 08/31/20 22 11:21 AM EDT documented as of this encounter Care Teams Instructor Kindergarten Relationship Specialty Start Date End Date Mariangel Roblero CNP [address] [place] [address] [address] [place] [address] [email or web address] PCP - General Internal Medicine 08/02/20 Audra Kenyon AML ANALYST [address] [place] [address] Historical LMR Provider 09/14/17 documented as of this encounter Additional Source Comments The information contained in this document represents components of the legal health record. It is not the complete legal health record.[facility]
--- OUTSIDE RECORDS SUMMARY | 2025-07-19 16:56 | XMS_ITS | Encounter Summary ---
Author Organization [facility] Address [address] [facility] [address] [place] [address] Phone Care Team Providers Care Briquetter Operator Name Role Phone Audra Kenyon ASSOCIATE PROFESSOR OF LIBRARY MEDIA Unavailable Ed Casey DO Unavailable Savana Casiano MD Unavailable [phone] Jeannette Lynn MD Unavailable Audra Kenyon ASSOCIATE PROFESSOR OF LIBRARY MEDIA Primary Care Provider Mariangel Roblero GANG DRILL PRESS OPERATOR Primary Care Provider Encounter Details Date Type Department Care Team (Late st Contact Info) Description 05/21/2018 Ancillary Orders Virtual Department [address] [place] [address] Audra Kenyon, ASSOCIATE PROFESSOR OF LIBRARY MEDIA [address] [place] [address] Breast screening Social History Tobacco Use Types Packs/Day Years Used Date Smoking Tobacco: Never Smokeless Tobacco: Never Alcohol Use Standard Drinks/Week Comments No 0 (1 standard drink = 0.6 oz pur e alcohol) Comments Unknown Sex and Gender Information Value Date Recorded Sex Assigned at Not on file Legal Sex Female 4:11 PM EST Gender Identity Not on file Sexual Orientation Not on file documented as of this encounter Plan of Treatment Upcoming Encounters Date Type Department Care Team (Late st Contact Info) Description 09/22/2025 10:00 AM EDT Office Visit [facility] 14 [facility] [address] [place] [address] Mariangel Roblero, GANG DRILL PRESS OPERATOR 14 [facility] [address] [place] [address] [email or web address] documented as of this encounter Results * BI MAMMOGRAM SCREENING WITH TOMOSYNTHESIS WITH CAD (BILATERAL) (06/06/2018 3:40 PM EDT) Anatomical Region Laterality Modality Breast Left, Breast Right, Breast Bilateral Bila teral Mammography 06/08/2018 6:15 PM EDT Impressions 06/08/2018 6:18 PM EDT No findings suspicious for malignancy. In the absence of a worrisome palpable abnormality, annual screening mammography is recommended. BI-RADS CATEGORY: 2 - Benign finding. DENSITY: The breast tissue is heterogeneously dense, an appearance which lowers the sensitivity of mammography. POS CDHMAM2 Narrative 06/08/2018 6:18 PM EDT COMPARISON: 09/26/2010 through 03/09/2016. Bilateral 3-D tomosynthesis with 2-D reconstructions in the CC and MLO projection of each breast was obtained. Additional 3-D laterally exaggerated cc view left breast for better positioning. Computer-aided detection system also utilized. No new mass, asymmetry, architectural distortion or suspicious calcifications have become apparent on either side. Chronic vascular calcifications right upper outer quadrant unchanged. Procedure Note Jennifer Mullen MD - 06/08/2018 COMPARISON: 09/26/2010 through 03/09/2016. Bilateral 3-D tomosynthesis with 2-D reconstructions in the CC and MLOprojection of each breast was obtained. Additional 3-D laterallyexaggerated cc view left breast for better positioning. Computer-aideddetection system also utilized. No new mass, asymmetry, architectural distortion or suspiciouscalcifications have become apparent on either side. Chronic vascular calcifications right upper outer quadrant unchanged. IMPRESSION: No findings suspicious for malignancy. In the absence of a worrisomepalpable abnormality, annual screening mammography is recommended. BI-RADS CATEGORY: 2 - Benign finding. DENSITY: The breast tissue is heterogeneously dense, an appearance whichlowers the sensitivity of mammography. POS CDHMAM2 Audra Kenyon ASSOCIATE PROFESSOR OF LIBRARY MEDIA IMG MG EXAMS Final R esult documented in this encounter Visit Diagnoses Diagnosis Breast screening Breast screening, unspecified Breast screening Breast screening, unspecified documented in this encounter Additional Health Concerns Infection Onset Date Last Indicated Resolved Time CoV-Risk 03/08/2021 03/08/2021 03/08/2021 4:47 PM EDT COVID-19 Comment:Setting expiration date via import due to B policy change to align auto-expiration of infection statuses for patients to apply to employees as of 05/08/2021; contact [facility] with any questions. 03/08/2021 03/08/2021 05/09/2021 1:23 AM E DT CoV-Risk 04/17/2022 04/18/2022 04/29/2022 1:22 AM EDT CoV-Risk 11/07/2023 11/07/2023 11/18/2023 1:22 AM EST documented as of this encounter Care Teams Briquetter Operator Relationship Specialty Start Date End Date Audra Kenyon NP [address] [place] [address] PCP - General Internal Medicine 11/25/17 08/01/20 Mariangel Roblero, MISAEL [address] [place] [address] [email or web address] PCP - General Internal Medicine 08/02/20 Audra Kenyon NP [address] [place] [address] Historical LMR Provider 09/14/17 Ed Casey DO [address] [place] [address] [facility] [place] [address] [email or web address] Historical LMR Provider 09/14/17 12/02/21 Savana Casiano MD [address] [place] [address] Historical LMR Provider 09/14/17 2 Jeannette Lynn MD 4 [facility] [place] [address] [email or web address] Historical LMR Provider 09/14/17 documented as of this encounter Additional Source Comments The information contained in this document represents components of the legal health record. It is not the complete legal health record.[facility]
--- OUTSIDE RECORDS SUMMARY | 2025-07-19 16:56 | XMS_ITS | Encounter Summary ---
Author Organization [facility] Address [address] [place] [address] Phone Care Team Providers Care Case Specialist Name Role Phone Maynorbeatrice Audra Kwabena REAMING MACHINE OPERATOR FOR PLASTIC Unavailable Mariangel Roblero CNP Primary Care Provider Encounter Details Date Type Department Care Team (Latest Contact Info) Description 01/03/2023 Transcribe Orders [facility] 10 [facility] 2nd [place] [address] Flroi Chua PA [address] [place] [address] FHx: colon cancer (Primary Dx); Hereditary hemochromatosis Social History Tobacco Use Types Packs/Day Years [...] EDT Office Visit [facility] [place] [facility] 14 [facility] [address] [place] [address] Mariangel Roblero CNP 14 [facility] [address] [place], [place] [phone] documented as of this encounter Results * (ABNORMAL) Comprehensive metabolic panel (01/03/2023 3:17 PM EST) SODIUM 137 133 - 146 mmol/L [facility] POTASSIUM 4.9 3.3 - 5.1 mmol/L [facility] CHLORIDE 98 96 - 108 mmol/L [facility] CO2 29 21 - 35 mmol/L [facility] BUN 28(H) 6 - 19 mg/dL [facility] CREATININE 2.10(H) 0.5 - 1.5 mg/dL [facility] GLUCOSE 65(L) 70 - 99 mg/dL [facility] ALBUMIN 4.4 3.9 - 4.8 g/dL [facility] TOTAL PROTEIN 7.3 6.5 - 8.0 g/dL [facility] CALCIUM 9.6 8.4 - 10.3 mg/dL [facility] ALKALINE PHOSPHATASE 97 39 - 117 U/L [facility] TOTAL BILIRUBIN 0.2 0.0 - 1.2 mg/dL [facility] AST 18 0 - 37 U/L [facility] ALT 15 0 - 40 U/L [facility] GLOBULIN 2.9 1 - 4.8 g/dL [facility] EGFR 25(L) >59 mL/min/1.7 3m2 [facility] Comment:Estimated glomerular filtration rate calculated using the CKD-EPI refit equation. ANION GAP 15 10 - 20 mmol/L [facility] Blood 01/03/2023 3:17 PM EST 01/03/2023 3:21 PM EST us Flori [facility] BLOOD ORDERABLES Final Result [facility] [address] [place] [address] * Liver fibrosis test (01/03/2023 3:17 PM EST) Fibrosis score 0.08 [facility] Interpretation (Fibrosis) SEE NOTE [facility] Comment: (NOTE) no fibrosis Fibro Test Score (f) Metavir Score f>=0 and f<=0.21 : F0 (no fibrosis) f>0.21 and f<=0.27 : F0-F1 (no fibrosis) f>0.27 and f<=0.31 : F1 (minimal fibrosis) f>0.31 and f<=0.48 : F1-F2 (minimal fibrosis) f>0.48 and f<=0.58 : F2 (moderate fibrosis) f>0.58 and f<=0.72 : F3 (advanced fibrosis) f>0.72 and f<=0.74 : F3-F4 (advanced fibrosis) f>0.74 and f<=1.00 : F4 (severe fibrosis) HCV Fibrosis Grade F0 Q [facility] NECROINFLAMM SCORE 0.02 Q [facility] NECROINFLAMM GRADE A0 Q [facility] NECROINFLAMM INTERP SEE NOTE [facility] Comment: (NOTE) no activity ActiTest Score (a) Metavir Score a>=0 and a<=0.17 : A0 (no activity) a>0.17 and a<=0.29 : A0-A1 (no activity) a>0.29 and a<=0.36 : A1 (minimal activity) a>0.36 and a<=0.52 : A1-A2 (minimal activity) a>0.52 and a<=0.60 : A2 (significant activity) a>0.60 and a<=0.62 : A2-A3 (significant activity) a>0.62 and a<=1.00 : A3 (severe activity) A2 Macroglobulin 173 106 - 279 mg/dL [facility] Haptoglobin 180 43 - 212 mg/dL [facility] Apolipoprotein A1 179 101 - 198 mg/dL [facility] TOTAL BILIRUBIN 0.3 0.2 - 1.2 mg/dL [facility] GGT 23 3 - 65 U/L [facility] ALT 11 6 - 29 U/L [facility] Specimen/Product ID [id number] [facility] Comments (Chemistry) SEE NOTE [facility] Comment: (NOTE) The reliability of results is dependent on compliance with the preanalytical and analytical conditions recommended by [employer]. The tests have to be deferred for: acute hemolysis, acute hepatitis, acute inflammation, extra hepatic cholestasis. The advice of a specialist should be sought for interpretation in chronic hemolysis and Gilbert's syndrome. The test interpretation is not validated in liver transplant patients. Isolated extreme values of one of the components should lead to caution in interpreting the results. In case of discordance between a biopsy result and a test, it is recommended to seek the advice of a specialist. The causes of these discordances could be due to a flaw of the test or to a flaw in the biopsy: i.e. a liver biopsy has a 33% variability rate for one fibrosis stage. FibroTest is interpretable for chronic hepatitis B and C, alcoholic and non alcoholic steatosis. ActiTest is interpretable for chronic hepatitis B and C. The performance characteristics have been determined by [facility]. It has not been cleared or approved by the U.S. Food and Drug Administration. Performance characteristics refer to the analytical performance of the test. [employer], the associated logo, [employer] and all associated [employer] foreman are the registered trademarks of [employer]. All third green party foreman - (R) and (TM) - are the property of their respective owners. (C) [id number] [employer]. All rights reserved. Blood 01/03/2023 3:17 PM EST 01/03/2023 3:21 PM EST us Flori [facility] BLOOD ORDERABLES Final Result [employer] [facility] [address] [place] [address], [facility] [phone] documented in this encounter Visit Diagnoses Diagnosis FHx: colon cancer- Primary Family history of malignant neoplasm of gastrointestinal tract Hereditary hemochromatosis documented in this encounter Additional Health Concerns Infection Onset Date Last Indicated Resolved Time CoV-Risk 11/07/2023 11/07/2023 11/18/2023 1:22 AM EST Assessment Noted Time PHQ-2 Depression Total Score: 0 08/31/20 22 11:21 AM EDT documented as of this encounter Care Teams Case Specialist Relationship Specialty Start Date End Date Mariangel Roblero CNP [address] [place] [address] [address] [place] [address] [email or web address] PCP - General Internal Medicine 08/02/20 Audra Kenyon, BECKI [address] [place] [address] Historical LMR Provider 09/14/17 documented as of this encounter Additional Source Comments The information contained in this document represents components of the legal health record. It is not the complete legal health record.[facility]
--- OUTSIDE RECORDS SUMMARY | 2025-07-19 16:57 | XMS_ITS | Encounter Summary ---
Author Organization [facility] Address [address] [facility] [address] [place] [address] Phone Care Team Providers Care Merchant Mariner Name Role Phone MaynormabelAudra drummond SUPERVISOR DOG LICENSE OFFICER Unavailable Ed Casey DO Unavailable Savana Casiano MD Unavailable [phone] Jeannette Lynn MD Unavailable Mariangel Roblero INDUSTRIAL HYGIENE ENGINEER Primary Care Provider Encounter Details Date Type Department Care Team (Late st Contact Info) Description 01/04/2021 Ancillary Orders [facility] Internal Medicine [id number] [place], [place] [phone] Mariangel Roblero, INDUSTRIAL HYGIENE ENGINEER 14 [facility] [address] [place] [phone] [email or web address] Social History Tobacco Use Types Packs/Day Years [...] Description 09/22/2025 10:00 AM EDT Office Visit [facility] Internal Medicine 14 [facility] [address] [place] [address] Mariangel Roblero CNP 14 [facility] [address] [place] [address] [email or web address] documented as of this encounter Visit Diagnoses Not on filedocumented in this encounter Additional Health Concerns Infection Onset Date Last Indicated Resolved Time CoV-Risk 03/08/2021 03/08/2021 03/08/2021 4:47 PM EDT COVID-19 Comment:Setting expiration date via import due to [facility] policy change to align auto-expiration of infection statuses for patients to apply to employees as of 05/08/2021; contact [facility] with any questions. 03/08/2021 03/08/2021 05/09/2021 1:23 AM E DT CoV-Risk 04/17/2022 04/18/2022 04/29/2022 1:22 AM EDT CoV-Risk 11/07/2023 11/07/2023 11/18/2023 1:22 AM EST documented as of this encounter Care Teams Merchant Mariner Relationship Specialty Start Date End Date Mariangel Roblero CNP [address] [address] [email or web address] PCP - General Internal Medicine 08/02/20 Audra Kenyon NP [address] [place] [address] Historical LMR Provider 09/14/17 Ed Casey DO [address] [place] [address] [facility] [place] [address] [email or web address] Historical LMR Provider 09/14/17 12/02/21 Savana Casiano MD [address] [place] [address] Historical LMR Provider 09/14/17 2 Jeannette Lynn MD [address] [place] [address] [facility], [facility] [place] [address] [email or web address] Historical LMR Provider 09/14/17 documented as of this encounter Additional Source Comments The information contained in this document represents components of the legal health record. It is not the complete legal health record.[facility]
--- OUTSIDE RECORDS SUMMARY | 2025-07-19 16:57 | XMS_ITS | Clinical Summary ---
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 And as needed Active clobetasol (TEMOVATE) 0.05 % cream As needed 3 Active fluocinonide 0.05 % external solution As needed 3 Active oxyCODONE 5 MG immediate release tabletIndications: Cervical radiculopathy Take 1 tablet (5 mg total) by mouth 2 (two) times a day as needed for pain (specific location in comments). Partial fill ok 56 tablet 5 Active lidocaine (LIDODERM) 5 %Indications:Cervi preston radiculopathy Place 1 patch onto the skin daily. Remove & Discard patch within 12 hours or as directed by MD 30 patch 5 Active losartan (COZAAR) 100 MG tabletIndications: Essential hypertension TAKE ONE TABLET BY MOUTH EVERY DAY 90 tablet 3 5 Active methocarbamoL (ROBAXIN) 500 MG tabletIndications: Strain of neck muscle, subsequent encounter,Cervicog enic headache Take 1 tablet (500 mg total) by mouth 4 (four) times a day for 5 days. 20 tablet 5 06/27/20 25 Active Problems Problem Noted Date Diagnosed Date Bilateral impacted cerumen 09/16/2024 Assessment & Plan (09/16/2024 9:43 AM EDT): Bilateral external canals irrigated with water/hydrogen peroxide 50:50 mix. Currette used to remove excess cerumen. Patient tolerated procedure well. [facility] Assessment & Plan (09/16/2024 9:44 AM EDT): Generally well female. Due for colonoscopy, patient is planning on discussing with GI at her upcoming appointment. Up-to-date on mammogram; order placed for bone density testing. Patient will discuss Shingrix vaccine Tdap booster with local pharmacist. Pap smears no longer recommended at this age. Advised on healthy diet, regular exercise, and to consume at least 1200 mg Calcium and 2000 iU Vitamin D daily by diet and/or supplementation. Assessment & Plan (09/04/2023 12:08 PM EDT): Generally well female. Due for colonoscopy, patient has been in touch with [facility] regarding this. Up-to-date on mammogram and bone density testing. Patient will discuss influenza vaccine (patient can only get FluBlok) and Shingrix vaccine with local pharmacist. Pap smears no longer recommended at this age. Advised on healthy diet, regular exercise, and to consume at least 1200 mg Calcium and 2000 iU Vitamin D daily by diet and/or supplementation. Assessment & Plan (08/31/2022 11:24 AM EDT): Generally well female. Up-to-date on colonoscopy, mammogram, and bone density testing. Prevnar-20 given in office today; encourage patient to discuss influenza vaccine (patient can only get FluBlok) and Shingrix vaccine with local pharmacist. Pap smears no longer recommended at this age. Advised on healthy diet, regular exercise, and to consume at least 1200 mg Calcium and 2000 iU Vitamin D daily by diet and/or supplementation. Assessment & Plan (08/29/2021 12:25 PM EDT): Generally well female. Up-to-date on colonoscopy, mammogram, and bone density testing. Pneumovax given in office today, encourage patient to discuss influenza vaccine and Shingrix vaccine with local pharmacist. Pap smears no longer recommended at this age. Advised on healthy diet, regular exercise, and to consume at least 1200 mg Calcium and 2000 iU Vitamin D daily by diet and/or supplementation. Mixed hyperlipidemia 08/29/2021 Assessment & Plan (09/16/2024 9:42 AM EDT): Elevated LDL, with a goal LDL of less than 100 due to history of hypertension. Discussed lipid lowering agents, but patient declines medication; she verbalizes understanding of risks/benefits of therapy. The 10-year ASCVD risk score (Carlo ABEL, et al., 2019) is: 13.9% Values used to calculate the score: Age: 69 years Sex: Female Is Non- : No Diabetic: No Tobacco smoker: No Systolic Blood Pressure: 142 mmHg Is BP treated: Yes HDL Cholesterol: 58 mg/dL Total Cholesterol: 212 mg/dL Assessment & Plan (08/31/2022 11:39 AM EDT): Elevated LDL, with a goal LDL of less than 100 due to history of hypertension. Patient is not really interested in lipid-lowering medications at this time, but would like to try diet and exercise. The patient understands the risks and benefits of starting a statin and declines the medication at this time. Patient advised on weight loss, regular exercise, and Mediterranean diet to reduce cholesterol. Repeat test in 6-12 months. The 10-year ASCVD risk score (Dayami GODFREY Jr., et al., 2013) is: 9.9% Values used to calculate the score: Age: 67 years Sex: Female Is Non- : No Diabetic: No Tobacco smoker: No Systolic Blood Pressure: 130 mmHg Is BP treated: Yes HDL Cholesterol: 55 mg/dL Total Cholesterol: 224 mg/dL Assessment & Plan (08/29/2021 12:31 PM EDT): Elevated LDL, with a goal LDL of less than 100 due to history of hypertension. Patient is not really interested in lipid-lowering medications at this time, but would like to try diet and exercise. The patient understands the risks and benefits of starting a statin and declines the medication at this time. Patient advised on weight loss, regular exercise, and Mediterranean diet to reduce cholesterol. Repeat test in 6-12 months. The 10-year ASCVD risk score (Escalonkaushik GODFREY JrMichelle, et al., 2013) is: 9.7% Values used to calculate the score: Age: 66 years Sex: Female Is Non- : No Diabetic: No Tobacco smoker: No Systolic Blood Pressure: 138 mmHg Is BP treated: Yes HDL Cholesterol: 57 mg/dL Total Cholesterol: 213 mg/dL History of COVID-19 05/16/2021 Assessment & Plan (05/16/2021 11:38 AM EDT): Resolved. No senior care complications identified related to COVID infection ~2 months ago. Cervical radiculopathy 10/28/2020 Assessment & Plan (03/16/2025 10:06 AM EDT): Patient is reporting worsening neck pain over the past few months, in a long history of neck issues. Will update imaging (last imaging in 2019). Will provide patient a prescription for Lidoderm patches; we discussed that insurance will likely not cover this but she will see what the cost is [id number]. Encouraged patient to also reach out to Dr. Berry of physiatry to discuss pain management options. Oxycodone use very occasionally, no evidence of abuse or diversion. Patient verbalizes understanding and in agreement with plan. Assessment & Plan (09/16/2024 9:43 AM EDT): Ongoing issues with neck pain, despite cortisone and epidural injections, and laser treatments with pain management clinic. Continue Excedrin and Tylenol, occasional Oxycodone which she takes sparingly without evidence of abuse or diversion. F/u with chiropractic treatments as needed. Assessment & Plan (04/29/2024 7:07 PM EDT): Ongoing issues with neck pain, despite cortisone and epidural injections, and laser treatments with pain management clinic. Continue Excedrin and Tylenol, occasional Oxycodone which she takes sparingly without evidence of abuse or diversion. Assessment & Plan (12/25/2023 5:57 PM EST): Ongoing issues with neck pain, despite cortisone and epidural injections, or laser treatments. Continue Excedrin and Tylenol, occasional Oxycodone which she takes sparingly without evidence of abuse or diversion. Assessment & Plan (04/05/2023 12:56 PM EDT): Ongoing issues with neck pain, despite cortisone and epidural injections, or laser treatments. Continue Excedrin and Tylenol, occasional Oxycodone which she takes sparingly without evidence of abuse or diversion. Will place referral to [facility] to discuss non-surgical/non-pharmacologic treatment options. Assessment & Plan (03/06/2023 12:48 PM EDT): Ongoing issues with neck pain, despite cortisone and epidural injections, or laser treatments. Continue Excedrin and Tylenol, occasional Oxycodone which she takes sparingly without evidence of abuse or diversion. Assessment & Plan (08/31/2022 12:23 PM EDT): Ongoing issues with neck pain, despite cortisone and epidural injections, or laser treatments. Patient is considering acupuncture treatments. Follow up with Dr. Padilla, mortgage loan specialist at [facility] scheduled. Continue Excedrin and Tylenol, occasional Oxycodone which she takes sparingly without evidence of abuse or diversion. We did discuss trying muscle relaxants for times of flareups, although she would like to see what she is having in the past before any new prescriptions. Follow-up in 6 months for reevaluation. Assessment & Plan (05/03/2022 11:03 AM EDT): Ongoing issues with neck pain, despite cortisone and epidural injections. Follow up appointment with Dr. Padilla, mortgage loan specialist at [facility] scheduled. Continue Excedrin and Tylenol, occasional Oxycodone which she takes sparingly without evidence of abuse or diversion. Controlled substance agreement up to date. Follow-up in 4 months for reevaluation. Assessment & Plan (01/06/2022 12:05 PM EST): Ongoing issues with neck pain, despite cortisone injections. She is being followed closely by physiatry at [facility]. The next plan is to do epidural injections, which is scheduled for next month. Continue Excedrin and Tylenol, occasional Oxycodone which she takes sparingly without evidence of abuse or diversion. Controlled substance agreement up to date. Follow-up in 3 months for reevaluation. Assessment & Plan (08/29/2021 12:26 PM EDT): Ongoing issues with neck pain although less radicular pain. Continue Tylenol, occasional Oxycodone which she takes sparingly without evidence of abuse or diversion. Controlled substance agreement up to date. Assessment & Plan (05/16/2021 11:38 AM EDT): Ongoing issues with neck pain although radicular symptoms improved. Continue Tylenol, occasional Oxycodone which she takes sparingly without evidence of abuse or diversion. Controlled substance agreement plan completed in office. F/u in 3 months for reevaluation. Assessment & Plan (04/06/2021 10:02 AM EDT): Stable on exam today. Continue Etodolac 400 mg Take one pill PO BID with food. Patient also taking CALM supplement powder, and taking Magnesium which have helped with neck pain relief. Using water weighted bag for additional neck therapyd. Assessment & Plan (02/14/2021 12:30 PM EDT): Ongoing issues with neck pain and radicular pain. Recent steroid injection, although patient may need surgical intervention. Will provide another course of Oxycodone which she takes sparingly without evidence of abuse or diversion. F/u in 3 months for reevaluation. Assessment & Plan (01/04/2021 1:44 PM EST): Patient has consult with Orthopedics in one week to look at additional therapy, including possible surgical intervention. Assessment & Plan (12/08/2020 3:15 PM EST): Continue Etodolac 400 mg PO BID with food. Trial of Tizanidine 2 mg Take one pill PO daily as needed for additional pain relief. Patient will continue Neck hammock and weighted water bag for radiculopathy relief. Therapies have helped ease symptoms. Assessment & Plan (11/11/2020 12:53 PM EST): Overall worsening neck pain with radiculopathy. Recent x-ray of cervical spine as stated above. Will do a course of oral steroid to help reduce inflammation, patient instructed on medication use, side effects, and adverse effects. We will also provide patient with a short course of oxycodone for pain. Patient advised to take cautiously and sparingly, and to avoid taking with any other sedating medications. Avoid driving or operating machinery after use. We will also pursue MRI of cervical spine for further evaluation; will likely do referral for physical therapy or to neurosurgeon based on MRI results. Patient verbalizes understanding and in agreement with plan. Assessment & Plan (10/28/2020 6:53 PM EST): Severe, left upper extremity pain in setting of chronic neck and back pain. Likely radicular from cervical and/or thoracic area. Not much relief of pain with her usual regimen of Excedrin. Will do further work-up with x-rays of thoracic and lumbar spine. Based on results, may consider MRI. In meantime, will start gabapentin 100 mg 1-3 capsules up to 3 times per day. Patient instructed on medication use, side effects, and adverse effects. We will follow-up in 2 weeks for reevaluation. Essential hypertension 07/29/2020 Assessment & Plan (03/16/2025 10:06 AM EDT): Normotensive readings at home, although borderline elevated in office today. Continue current regimen and f/u in 6 months at time of annual wellness exam for reevaluation. Assessment & Plan (09/16/2024 9:41 AM EDT): Normotensive readings at home, although borderline elevated in office today. Continue current regimen and f/u in 3 months for reevaluation. Assessment & Plan (06/30/2024 9:53 AM EDT): Mostly normal blood pressure readings at home, with elevated blood pressure readings associated with times of pain. Will continue current regimen and f/u in 2 months. Continue to monitor at home and follow-up if BP readings consistently greater than 140 systolic. Follow-up for annual wellness exam in 2.5 months as planned. Assessment & Plan (04/29/2024 7:05 PM EDT): Elevated blood pressure in office, but normotensive at home and at her phlebotomy appointments; suspect that she could have some white coat syndrome contributing to higher blood pressures in office. Continue to monitor at home and follow-up if BP readings consistently greater than 140 systolic. Follow-up in 2 months for reevaluation. Assessment & Plan (12/25/2023 5:56 PM EST): Borderline blood pressure reading in office, but normotensive readings at home and at other office appointments. Recommend continuing to monitor and follow-up if BP readings consistently greater than 140 systolic. Follow-up in 4 months for reevaluation. Assessment & Plan (09/04/2023 12:06 PM EDT): Elevated blood pressure in office, but normotensive readings at home and at other office appointments. Recommend continuing to monitor and follow-up if BP readings consistently greater than 140 systolic. Follow-up in 3 months for reevaluation. Assessment & Plan (04/05/2023 12:55 PM EDT): Improved blood pressures at home and in office today. Continue losartan 100 mg daily and advised patient to monitor blood pressure weekly at home. F/u in 5 months at annual wellness exam, or sooner if blood pressures at home consistently greater than 140/90. Patient in agreement with plan. Assessment & Plan (03/06/2023 12:47 PM EDT): Elevated blood pressure in office today, with several recent elevated readings during office visits. Patient attributes the elevated blood pressure to pain, although she does have frequent pain so I suspect that her blood pressure tends to be higher more often. Will increase losartan to 100 mg daily and f/u in a month for reevaluation. Encouraged patient to monitor readings at home. Pt verbalizes understanding and in agreement with plan. Assessment & Plan (08/31/2022 11:35 AM EDT): Stable, with normotensive blood pressure reading in office today. Continue current therapies and f/u in 6 months for reevaluation. Assessment & Plan (05/03/2022 11:02 AM EDT): Stable, with normotensive blood pressure reading in office today. Continue current therapies and f/u in 4 months for annual wellness exam. Assessment & Plan (01/06/2022 12:04 PM EST): Initially elevated in the office, but improved by the end of the visit. Continue losartan 50 mg daily and follow-up in 3 months for reevaluation. Assessment & Plan (08/29/2021 12:23 PM EDT): Stable on current therapies, although patient noted to have some hyponatremia and hypokalemia likely related to chlorthalidone. Will decrease chlorthalidone to 12.5 mg daily and repeat electrolyte testing in 1 month. We will follow-up at that time to discuss lab results and reevaluate blood pressure. Patient verbalizes understanding and in agreement with plan. Assessment & Plan (05/16/2021 11:36 AM EDT): Stable on current therapies. Continue current regimen and f/u in 3 months. Pt verbalizes understanding and in agreement with plan. Assessment & Plan (02/14/2021 11:57 AM EDT): Slightly elevated blood pressure in office, but normotensive readings at home. Continue current regimen and f/u in 3 months. Pt verbalizes understanding and in agreement with plan. Assessment & Plan (11/11/2020 12:52 PM EST): Blood pressure is improved with home blood pressure readings. Continue current regimen with losartan at 50 mg daily. Follow-up in 3 months. Assessment & Plan (10/28/2020 6:52 PM EST): Elevated blood pressure in office today, which patient attributes to pain although she admits that she is in relatively chronic pain. We will increase losartan to 50 mg daily and follow-up in 2 weeks by telemedicine appointment. Patient advised to check blood pressure once daily until that time. Patient in agreement with plan. Assessment & Plan (07/29/2020 7:06 PM EDT): Slightly elevated blood pressure in office today. We will follow-up in 3 months for reevaluation, may consider increasing arm at that time if blood pressure continues to be elevated. Patient in agreement with plan. Hereditary hemochromatosis 07/29/2020 Assessment & Plan (03/16/2025 10:07 AM EDT): Stable, with regular therapeutic phlebotomy at [facility]. Continue follow-up with Dr. Foreman as scheduled. Assessment & Plan (09/16/2024 9:42 AM EDT): Stable, with regular therapeutic phlebotomy at [facility]. Continue follow-up with Dr. Foreman as scheduled. Assessment & Plan (06/30/2024 9:53 AM EDT): Stable, with regular therapeutic phlebotomy at [facility]. Continue follow-up with Dr. Foreman as scheduled. Assessment & Plan (09/04/2023 12:06 PM EDT): Stable, with regular therapeutic phlebotomy at [facility]. Continue follow-up with Dr. Foreman as scheduled. Assessment & Plan (08/31/2022 11:24 AM EDT): Stable, with regular therapeutic phlebotomy at [facility]. Continue follow-up with Dr. Foreman as scheduled. Assessment & Plan (08/29/2021 12:26 PM EDT): Stable, with regular therapeutic phlebotomy at [facility]. Continue follow-up with Dr. Rudolph of as scheduled. Assessment & Plan (07/29/2020 7:06 PM EDT): Stable, with regular therapeutic phlebotomy at [facility]. Continue follow-up with Dr. Ruodlph of as scheduled. Neurodermatitis 07/29/2020 Assessment & Plan (09/16/2024 9:43 AM EDT): Stable at baseline, with topical steroids and moisturizers. Follow-up for any worsening. Assessment & Plan (06/30/2024 9:54 AM EDT): Stable at baseline, with topical steroids and moisturizers. Follow-up for any worsening. Assessment & Plan (09/04/2023 12:07 PM EDT): Stable at baseline, with topical steroids and moisturizers. Follow-up for any worsening. Assessment & Plan (08/31/2022 11:23 AM EDT): Stable at baseline, with topical steroids and moisturizers. Follow-up for any worsening. Assessment & Plan (08/29/2021 12:27 PM EDT): Stable at baseline, with topical steroids and moisturizers. Follow-up for any worsening. Assessment & Plan (07/29/2020 7:08 PM EDT): Will do trial of topical clobetasol, particularly to bilateral hands which are quite excoriated in office today. Follow-up if not improving. Would also recommend strong emollient lotions, such as CeraVe. Bilateral hearing loss 07/29/2020 Assessment & Plan (08/29/2021 12:27 PM EDT): Stable, with use of hearing aids. Resolved Problems Problem Noted Date Diagnosed Date Resolved Date Elevated liver function tests 08/29/2021 01/06/2022 Assessment & Plan (08/29/2021 12:24 PM EDT): Slight elevation in AST/ALT. Patient does report relatively frequent use of Tylenol. Will repeat blood work in 1 month and if worsening, may consider discontinuation of Tylenol entirely and may need follow-up with Dr. Rudolph of due to history of hemochromatosis. Degenerative disc disease, cervical 12/07/2020 08/29/2021 Assessment & Plan (04/06/2021 10:00 AM EDT): Continue Etodolac 400 mg Take one pill PO BID with food. Patient also taking CALM supplement powder, and taking Magnesium which have helped with neck pain relief. Using water weighted bag for additional neck therapy. Assessment & Plan (01/04/2021 1:43 PM EST): Continue Etodolac 400 mg Take one pill PO BID with food for OA pain relief. Continue Neck hammock, water-weighted bag, CALM supplement powder for additional neck pain relief. Patient has consult with Orthopedics in one week for further treatment options. Assessment & Plan (12/07/2020 3:21 PM EST): Patient will continue Etodolac 400 mg Take one pill PO BID with food for cervical neck tenderness relief. Patient has been on medication for only 3 days. Educated patient it will take 2 full weeks for medication to build to full potential. Trial Tizanidine 2 mg. Take one pill PO qhs for additional cervical spine and paravertebral muscle tenderness as needed. Osteoarthritis, multiple sites 07/29/2020 03/16/2025 Assessment & Plan (09/16/2024 9:42 AM EDT): Chronic joint issues related to arthritis, including neck pain and bilateral hand/wrist pain. Continue current therapies of Excedrin or Tylenol for pain, with occasional use of oxycodone to help with sleep. No evidence of abuse or diversion of oxycodone. Assessment & Plan (06/30/2024 9:53 AM EDT): Chronic joint issues related to arthritis, including neck pain and bilateral hand/wrist pain. Continue current therapies of Excedrin or Tylenol for pain, with occasional use of oxycodone to help with sleep. No evidence of abuse or diversion of oxycodone. She verbalizes understanding of risk/benefits of this recommendation Assessment & Plan (04/29/2024 7:06 PM EDT): Chronic joint issues related to arthritis, including neck pain and bilateral hand/wrist pain. Continue current therapies of Excedrin or Tylenol for pain, with occasional use of oxycodone to help with sleep. No evidence of abuse or diversion of oxycodone. Cautioned patient on regular use of aspirin (Excedrin) with risk of GI bleeding; we discussed use of PPI for gastroprotection but patient declines at this time. She verbalizes understanding of risk/benefits of this recommendation Assessment & Plan (12/25/2023 5:57 PM EST): Chronic joint issues related to arthritis, including neck pain and bilateral hand/wrist pain. Continue current therapies of Excedrin or Tylenol for pain, with occasional use of oxycodone to help with sleep. No evidence of abuse or diversion of oxycodone. Follow up with chiropractic as needed. Assessment & Plan (09/04/2023 12:07 PM EDT): Chronic joint issues related to arthritis, including neck pain and bilateral hand/wrist pain. Continue current therapies of Excedrin or Tylenol for pain, with occasional use of oxycodone to help with sleep. Follow-up with BECKI Panda at [facility] for management of bilateral hand pain. Assessment & Plan (08/31/2022 11:24 AM EDT): Chronic joint issues related to arthritis. Primarily neck pain (see below). Assessment & Plan (08/29/2021 12:26 PM EDT): Chronic joint issues related to arthritis. Some improvement with Etololac. Continue routine follow up with LOU Andrade as planned Assessment & Plan (05/16/2021 11:37 AM EDT): Chronic joint issues related to arthritis. Some improvement with Etololac. Continue routine follow up with LOU Andrade as planned Assessment & Plan (04/06/2021 10:01 AM EDT): Continue Etodolac 400 mg Take one pill PO BID with food. Assessment & Plan (02/14/2021 12:29 PM EDT): Chronic joint issues related to arthritis. Some improvement with Etololac. Continue routine follow up with LOU Andrade as planned Assessment & Plan (01/04/2021 1:41 PM EST): Continue Etodolac 400 mg Take one pill PO BID with food for OA pain relief of neck, knees, and low back. Assessment & Plan (12/08/2020 3:12 PM EST): Continue Etodolac 400 mg Take one pill PO BID with food for OA neck, low back, knee, shoulder, and hip pain relief. Patient has just started medication. Assessment & Plan (07/29/2020 7:07 PM EDT): Chronic joint issues related to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
--- OUTSIDE RECORDS SUMMARY | 2025-07-19 16:57 | XMS_ITS | Encounter Summary ---
Author Organization [facility] Address [address] [facility] [facility] [address] [place] [address] Phone Care Team Providers Care Shipping And Receiving Operator Name Role Phone Audra Kenyon NP Unavailable Ed Casey DO Unavailable [phone] Savana Casiano MD Unavailable [phone] Jeannette Lynn MD Unavailable Mariangel Roblero CNP Primary Care Provider Encounter Details Date Type Department Care Team (Late st Contact Info) Description 11/11/2020 Procedure [facility], [address] [address] Social History Tobacco Use Types Packs/Day Years [...] on file documented as of this encounter Last Filed Vital Signs Vital Sign Reading Time Taken Comments Blood Pressure - - Pulse - - Temperature - - Respiratory Rate - - Oxygen Saturation - - Inhaled Oxygen Concentration - - Weight 70.3 kg (155 lb) 11/14/2020 9:21 AM EST Height 157.5 cm (5' 2 ) 11/14/2020 9:21 AM EST Body Mass Index 28.35 11/14/2020 9:21 AM EST documented in this encounter Plan of Treatment Upcoming Encounters Date Type Department Care Team (Late st Contact Info) Description 09/22/2025 10:00 AM EDT Office Visit [facility] [address] [facility] [address] [place] [address] Mariangel Roblero CNP [address] [facility] [address] [place] [phone] [email or web address] documented as of this encounter Visit Diagnoses [...] documented as of this encounter Care Teams Shipping And Receiving Operator Relationship Specialty Start Date End Date Mariangel Roblero CNP [address] [address] PCP - General Internal Medicine 08/02/20 Audra Kenyon NP [address] [place] [address] Historical LMR Provider 09/14/17 Ed Casey DO [address] [place] [address] Orthopedics & Sports Medicine, [facility] [place] [address] Historical LMR Provider 09/14/17 12/02/21 Savana Casiano MD [address] [place] [address] Historical LMR Provider 09/14/17 2 Jeannette Lynn MD [address] [place] [address] Orthopedics & Sports Medicine, [place] [address] [email or web address] Historical LMR Provider 09/14/17 documented as of this encounter Additional Source Comments The information contained in this document represents components of the legal health record. It is not the complete legal health record.[facility]
--- OUTSIDE RECORDS SUMMARY | 2025-07-19 16:57 | XMS_ITS | Encounter Summary ---
Author Organization [facility] Address [address] [place] [address] Phone Care Team Providers Care Food Technologist Name Role Phone Audra Kenyon Kwabena ACCOUNT EXECUTIVE Unavailable [phone] Mariangel Roblero CLIENT CARE COORDINATOR Primary Care Provider Encounter Details Date Type Department Care Team (Latest Contact Info) Description 09/25/2022 Transcribe Orders Virtual Department 30 [place] [address] Flori Chua PA 10 [place] [address] Elevated LFTs (Primary Dx) Social History Tobacco Use Types [...] 09/22/2025 10:00 AM EDT Office Visit [facility] Internal Medicine 14 [facility] [address], [place] [phone] Mariangel Roblero, CLIENT CARE COORDINATOR 14 [facility] [address], [place] [phone] documented as of this encounter Results * US ABDOMEN LIMITED RIGHT UPPER QUADRANT (10/01/2022 10:58 AM EST) Anatomical Region Laterality Modality Abdomen Ultrasound 10/01/2022 12:4 5 PM EST Impressions 10/01/2022 12:47 PM EST Mild hepatic steatosis. Narrative 10/01/2022 12:47 PM EST US ABDOMEN LIMITED RIGHT UPPER QUADRANT TECHNIQUE: US Abdominal limited right upper quadrant. COMPARISON: Abdominal CT dated 09/02/2017 FINDINGS: Liver: Mildly echogenic. No focal lesions. Main Portal Vein: Patent with normal direction of flow. Gallbladder: Normal. No gallstones or gallbladder wall thickening. Sonographic Helms's sign: negative. Biliary: No intrahepatic or extrahepatic biliary ductal dilatation. The common bile duct measures 6 mm. No hydronephrosis in the right kidney Visualized portions of the pancreas are unremarkable Procedure Note Carol Freeman MD - 10/01/2022 US ABDOMEN LIMITED RIGHT UPPER QUADRANT TECHNIQUE: US Abdominal limited right upper quadrant. COMPARISON: Abdominal CT dated 09/02/2017 FINDINGS: Liver: Mildly echogenic. No focal lesions. Main Portal Vein: Patent with normal direction of flow. Gallbladder: Normal. No gallstones or gallbladder wall thickening. Sonographic Helms's sign: negative. Biliary: No intrahepatic or extrahepatic biliary ductal dilatation. The common bile duct measures 6 mm. No hydronephrosis in the right kidney Visualized portions of the pancreas are unremarkable IMPRESSION: Mild hepatic steatosis. us Flori BLAKE IMG US ABDOMEN Final Resul t documented in this encounter Visit Diagnoses Diagnosis Elevated LFTs- Primary Other abnormal blood chemistry Elevated LFTs Other abnormal blood chemistry documented in this encounter Additional Health Concerns Infection Onset Date Last Indicated Resolved Time CoV-Risk 11/07/2023 11/07/2023 11/18/2023 1:2 2 AM EST Assessment Noted Time PHQ-2 Depression Total Score: 0 08/31/20 22 11:21 AM EDT documented as of this encounter Care Teams Food Technologist Relationship Specialty Start Date End Date Mariangel Roblero CNP [address] [place] [address] [place] [address] [email or web address] PCP - General Internal Medicine 08/02/20 Audra Kenyon NP [address] [place] [address] Historical LMR Provider 09/14/17 documented as of this encounter Additional Source Comments The information contained in this document represents components of the legal health record. It is not the complete legal health record.[facility]
--- OUTSIDE RECORDS SUMMARY | 2025-07-19 16:57 | XMS_ITS | Encounter Summary ---
Author Organization [facility] Address [address] [place] [address] Phone Care Team Providers Care Cold Rolling Coordinator Name Role Phone Audra Kenyon Kwabena WANT AD RECEIVER Unavailable [phone] Mariangel Roblero CNP Primary Care Provider Encounter Details Date Type Department Care Team (Late st Contact Info) Description 01/01/2022 Procedure Pass [facility], [address] [address] Social History Tobacco Use Types Packs/Day Years [...] Description 09/22/2025 10:00 AM EDT Office Visit [facility] Internal Medicine 14 [facility] [address] [place], [place] [address] Mariangel Roblero, MISAEL 14 [facility] [address] [place], [place] [phone] documented as of this encounter Visit Diagnoses Not on filedocumented in this encounter Additional Health Concerns Infection Onset Date Last Indicated Resolved Time CoV-Risk 04/17/2022 04/18/2022 04/29/2022 1:22 AM EDT CoV-Risk 11/07/2023 11/07/2023 11/18/2023 1:22 AM EST Assessment Noted Time PHQ-2 Depression Total Score: 2 08/29/20 11:11 AM EDT documented as of this encounter Care Teams Cold Rolling Coordinator Relationship Specialty Start Date End Date Mariangel Roblero CNP [address] [place] [address] [address] [place] [address] [email or web address] PCP - General Internal Medicine 08/02/20 Audra Kenyon, BECKI [address] [place] [address] Historical LMR Provider 09/14/17 documented as of this encounter Additional Source Comments The information contained in this document represents components of the legal health record. It is not the complete legal health record.[facility]
== END 2025-07-19 15:22 | disposition home or self-care (01) ==
LOC: HO.BBR 15:21
PROVIDERS: Visit Provider Physician Assistant Medical
DX: E83.118 Other hemochromatosis (principal)
CPT/HCPCS: 36415; 82728; 83540; 85025

== ENCOUNTER 2025-09-13 14:54 | Outpatient (REF) | payer MEDICARE, SELFPAY ==
[2025-09-13 15:04] LABS: MANUAL DIFF FLAG NO
[2025-09-13 15:06] LABS: Hematocrit 39.0 % (37.0-47.0); Hemoglobin 12.7 g/dl (12.0-16.0); Imm Gran Abs Auto 0.01 X10*3/uL (0.00-0.03); Imm Gran Pct Auto 0.2 % (0.0-0.4); Lymphocytes Absolute Auto 1.1 X10*3/uL (1.2-4.9); Mean Corpuscular HGB Conc 32.6 g/dl (31.0-35.0); Mean Corpuscular Hemoglobin 27.8 pg (27.0-33.0); Mean Corpuscular Volume 85.3 fL (80.0-98.0); NRBC Abs Auto 0.000 X10*3/uL (0.0-0.012); NRBC Pct Auto 0.0 /100WBC (0.0-0.2); Platelet Count 331 X10*3/uL (160-400); Red Blood Count 4.57 X10*6/uL (4.20-5.50); White Blood Count 5.9 X10*3/uL (4.8-10.8)
[2025-09-13 17:06] LABS: Ferritin 17 ng/mL (10-250); Iron 70 mcg/dL (30-160); Percent Iron Saturation 19 % (15-50); Total Iron Binding Capacity 371 mcg/dL (228-428); Unsaturated Iron Binding 301 ug/dL
--- OUTSIDE RECORDS SUMMARY | 2025-09-13 19:07 | XMS_ITS | Encounter Summary ---
Author Organization [facility] Address [address] [place] [address] Phone Care Team Providers Care Perinatal Specialist Name Role Phone Chantale Audra Kwabena STRATEGIC PLANNING CONSULTANT Unavailable [phone] Mariangel Roblero MALL MANAGER Primary Care Provider Encounter Details Date Type Department Care Team (Late st Contact Info) Description 03/31/2024 Transcribe Orders Virtual Department 30 [place] [address] Mariangel Roblero, MALL MANAGER 14 [facility] [address] [place] [phone] [email or web address] Breast screening (Primary Dx) Social History Tobacco [...] Care Team (Late st Contact Info) Description 09/14/2025 11:40 AM EDT Office Visit [facility] Internal Medicine [address] [address] Mariangel Roblero, MALL MANAGER [address] [address] 09/21/2025 11:30 AM EDT Office Visit [facility] 10 [place] [address] Unknown, Unknown, Flori Mendez PA-C [address] [address] 09/22/2025 10:00 AM EDT Office Visit [facility] Internal Medicine [address] [address] Mariangel Roblero, MALL MANAGER [address] [address] documented as of this encounter Results * [...] notified of the results and recommendations. Mariangel Roblero CNP IMG MG EXAMS Final Result documented in this encounter Visit Diagnoses Diagnosis Breast screening- Primary Breast screening, unspecified Breast screening Breast screening, unspecified documented in this encounter Additional Health Concerns Infection Onset Date Last Indicated Resolved Time COVID-19 07/20/2025 07/20/2025 08/10/2025 1:21 AM EDT Assessment Noted Time PHQ-2 Depression Total Score: 0 09/04/20 23 11:17 AM EDT documented as of this encounter Care Teams Perinatal Specialist Relationship Specialty Start Date End Date Mariangel Roblero CNP [address] [place] [address] PCP - General Internal Medicine 08/02/20 Audra Kenyon NP [address] [place] [address] Historical LMR Provider 09/14/17 documented as of this encounter Additional Source Comments The information contained in this document represents components of the legal health record. It is not the complete legal health record.[facility]
--- OUTSIDE RECORDS SUMMARY | 2025-09-13 19:07 | XMS_ITS | Encounter Summary ---
Author Organization [facility] Address [address] [facility] [address] [place] [address] Phone Care Team Providers Care Investor Relations Associate Name Role Phone Audra Kenyon CHISEL WORKER Unavailable Ed Casey DO Unavailable Savana Casiano MD Unavailable [phone] Jeannette Lynn MD Unavailable Audra Kenyon CHISEL WORKER Primary Care Provider Mariangel Roblero COMMERCIAL SALES SPECIALIST Primary Care Provider Encounter Details Date Type Department Care Team (Late st Contact Info) Description 08/27/2019 Ancillary Orders Virtual Department [address] [place] [address] Audra Kenyon, CHISEL WORKER [address] [place] [address] Breast screening Social History Tobacco Use Types [...] Description 09/14/2025 11:40 AM EDT Office Visit [facility] Internal Medicine [address] [address] Mariangel Roblero, COMMERCIAL SALES SPECIALIST [address] [address] [email or web address] 09/21/2025 11:30 AM EDT Office Visit [facility] G[facility]ology Clinic 10 [place] [address] Unknown, Unknown, Flori Mendez PA-C [address] [address] 09/22/2025 10:00 AM EDT Office Visit [facility] Internal Medicine [address] [address] Mariangel Roblero, COMMERCIAL SALES SPECIALIST [address] [place] [address] [email or web address] documented as of this encounter Results * [...] of mammography. POS - CDHMAMA Audra Kenyon NP IMG MG EXAMS Final R esult documented [...] CoV-Risk 11/07/2023 11/07/2023 11/18/2023 1:22 AM EST COVID-19 07/20/2025 07/20/2025 08/10/2025 1:21 AM EDT documented as of this encounter Care Teams Investor Relations Associate Relationship Specialty Start Date End Date Audra Kenyon, BECKI 150 [place] [address] PCP - General Internal Medicine 11/25/17 08/01/20 Mariangel Roblero CNP 14 [facility] [address] [place] [address] PCP - General Internal Medicine 08/02/20 Audra Kenyon NP 150 [place] [address] Historical LMR Provider 09/14/17 Ed Casey DO [address] [place] [address] [facility] [place] [address] Historical LMR Provider 09/14/17 12/02/21 Savana Casiano MD [address] [place] [address] Historical LMR Provider 09/14/17 2 Jeannette Lynn MD [address] [place] [address] [facility] [address] Historical LMR Provider 09/14/17 documented as of this encounter Additional Source Comments The information contained in this document represents components of the legal health record. It is not the complete legal health record.[facility]
--- OUTSIDE RECORDS SUMMARY | 2025-09-13 19:07 | XMS_ITS | Encounter Summary ---
Author Organization [facility] Address [address] [place] [address] Phone Care Team Providers Care Lining Vamper Name Role Phone Audra Kenyon Kwabena TRANSPORTATION TECHNICIAN Unavailable Mariangel Roblero CNP Primary Care Provider Encounter Details Date Type Department Care Team (Late Contact Info) Description 02/27/2023 Transcribe Orders Virtual Department 30 [place] [address] Mariangel Roblero CNP 14 [facility] [address] [place] [address] Breast screening (Primary Dx) Social History Tobacco [...] Department Care Team (Late Contact Info) Description 09/14/2025 11:40 AM EDT Office Visit [facility] Internal Medicine 14 [facility] [address] [place], [place] [phone] Mariangel Roblero CNP 14 [facility] [address] [place], [place] [phone] [email or web address] 09/21/2025 11:30 AM EDT Office Visit [facility] Gastro[facility]ology Clinic 10 [place] [address] Unknown, Unknown, Flori Mendez PA-C 10 [facility] 2 [place] [address] 09/22/2025 10:00 AM EDT Office Visit [facility] Internal Medicine 14 [facility] [address] [place] [address] Mariangel Roblero, PULVI MIXER OPERATOR 14 [facility] [address] [place] [address] documented as of this encounter Results * [...] Months Recommendation: Left Mammography Screening Mariangel Roblero CNP IMG MG EXAMS Final [...] documented as of this encounter Care Teams Lining Vamper Relationship Specialty Start Date End Date Mariangel Roblero CNP [address] [place] [address] PCP - General Internal Medicine 08/02/20 Audra Kenyon NP [address] [place] [address] Historical LMR Provider 09/14/17 documented as of this encounter Additional Source Comments The information contained in this document represents components of the legal health record. It is not the complete legal health record.[facility]
--- OUTSIDE RECORDS SUMMARY | 2025-09-13 19:07 | XMS_ITS | Encounter Summary ---
Author Organization [facility] Address [address] [place] [address] Phone Care Team Providers Care Instrumentation Technologist Name Role Phone Chantale Audra Kwabena GRAVEL TRUCK DRIVER Unavailable [phone] Marianegl Roblero LUBRICATION TECHNICIAN Primary Care Provider Encounter Details Date Type Department Care Team (Late st Contact Info) Description 02/27/2023 Procedure Pass [facility], [address] [address] Social History Tobacco Use Types Packs/Day Years [...] Description 09/14/2025 11:40 AM EDT Office Visit [facility] Internal Medicine 14 [facility] [address] [place], [place] [phone] Mariangel Roblero, MISAEL 14 [facility] [address] [place], [place] [phone] 09/21/2025 11:30 AM EDT Office Visit [facility] Gastro[facility]ology Clinic 10 [place] [address] Unknown, Unknown, Flori Mendez PA-C [address] [address] 09/22/2025 10:00 AM EDT Office Visit [facility] [place] Internal Medicine 14 [facility] [address] [place] [address] Mariangel Roblero, MISAEL 14 [facility] [address] [place] [address] [email or web address] documented as of this encounter Visit Diagnoses Not on filedocumented in this encounter Additional Health Concerns Infection Onset Date Last Indicated Resolved Time CoV-Risk 11/07/2023 11/07/2023 11/18/2023 1:22 AM EST COVID-19 07/20/2025 07/20/2025 08/10/2025 1:21 AM EDT Assessment Noted Time PHQ-2 Depression Total Score: 0 08/31/20 22 11:21 AM EDT documented as of this encounter Care Teams Instrumentation Technologist Relationship Specialty Start Date End Date Mariangel Roblero, MISAEL [address] [address] PCP - General Internal Medicine 08/02/20 Audra Kenyon, GRAVEL TRUCK DRIVER [address] [place] [address] Historical LMR Provider 09/14/17 documented as of this encounter Additional Source Comments The information contained in this document represents components of the legal health record. It is not the complete legal health record.[facility]
--- OUTSIDE RECORDS SUMMARY | 2025-09-13 19:07 | XMS_ITS | Encounter Summary ---
Author Organization [facility] Address [address] [facility] [address] [place] [address] Phone Care Team Providers Care Sales Operations Consultant Name Role Phone Audra Kenyon JEWELRY BEARING MAKER Unavailable Ed Casey DO Unavailable [phone] Savana Casiano MD Unavailable [phone] Jeannette Lynn MD Unavailable Audra Kenyon JEWELRY BEARING MAKER Primary Care Provider Mariangel Roblero CUSTOMER SERVICE ASSISTANT Primary Care Provider Encounter Details Date Type Department Care Team (Late st Contact Info) Description 05/21/2018 Ancillary Orders Virtual Department [address] [place] [address] Audra Kenyon, JEWELRY BEARING MAKER [address] [place] [address] Breast screening Social History Tobacco Use Types [...] Description 09/14/2025 11:40 AM EDT Office Visit [facility] Internal Medicine [address] [address] Mariangel Roblero, CUSTOMER SERVICE ASSISTANT [address] [address] 09/21/2025 11:30 AM EDT Office Visit [facility] Gastroenterology Clinic 10 [place] [address] Unknown, Unknown, Flori Mendez PA-C [address] [address] 09/22/2025 10:00 AM EDT Office Visit [facility] Internal Medicine [address] [address] Mariangel Roblero, MISAEL [address] [place] [address] [email or web address] documented as of this encounter Results * [...] whichlowers the sensitivity of mammography. POS CDHMAM2 us Audra Kwabena Kenyon JEWELRY BEARING MAKER IMG MG EXAMS Final R esult documented [...] documented as of this encounter Care Teams Sales Operations Consultant Relationship Specialty Start Date End Date Audra Kenyon, JEWELRY BEARING MAKER 150 [place] [address] PCP - General Internal Medicine 11/25/17 08/01/20 Mariangel Roblero CNP [address] [place] [address] [address] [place] [address] PCP - General Internal Medicine 08/02/20 Audra Kenyon, JEWELRY BEARING MAKER 150 [place] [address] Historical LMR Provider 09/14/17 Ed Casey DO [address] [place] [address] [facility] [place] [address] Historical LMR Provider 09/14/17 12/02/21 Savana Casiano MD [address] [place] [address] Historical LMR Provider 09/14/17 2 Jeannette Lynn MD [address] [place] [address] [facility] [place] [place] [address] Historical LMR Provider 09/14/17 documented as of this encounter Additional Source Comments The information contained in this document represents components of the legal health record. It is not the complete legal health record.[facility]
--- OUTSIDE RECORDS SUMMARY | 2025-09-13 19:07 | XMS_ITS | Encounter Summary ---
Author Organization [facility] Address [address] [facility] [address] [place] [address] Phone Care Team Providers Care Leather Currier Name Role Phone Audra Kenyon MATERIALS AND CORROSION ENGINEER Unavailable Ed Casey DO Unavailable [phone] Savana Casiano MD Unavailable [phone] Jeannette Lynn MD Unavailable Audra Kenyon MATERIALS AND CORROSION ENGINEER Primary Care Provider Mariangel Roblero LETTER CARRIER Primary Care Provider Encounter Details Date Type Department Care Team (Latest Contact Info) Description 07/15/2018 Ancillary Orders [facility], [address] [address] Emir Dolan MD [address] [place] [address] [email or web address] Osteoarthritis of spine with myelopathy, unspecified spinal [...] Description 09/14/2025 11:40 AM EDT Office Visit [facility] Internal Medicine 14 [facility] [address] [place] [address] Mariangel Roblero, LETTER CARRIER [address] [address] 09/21/2025 11:30 AM EDT Office Visit [facility] Gastroenterology Clinic 10 [place] [address] Unknown, Unknown, Flori Mendez PA-C [address] [address] 09/22/2025 10:00 AM EDT Office Visit [facility] Internal Medicine [address] [address] Mariangel Roblero, MISAEL [address] [place] [address] documented as of this encounter Results * [...] Comment:Setting expiration date via import due to [facility] policy change to align auto-expiration of infection statuses for patients to apply to employees as of 05/08/2021; contact [facility] with any questions. 03/08/2021 03/08/2021 05/09/2021 1:23 AM E DT CoV-Risk 04/17/2022 04/18/2022 04/29/2022 1:22 AM EDT CoV-Risk 11/07/2023 11/07/2023 11/18/2023 1:22 AM EST COVID-07/20/2025 07/20/2025 08/10/2025 1:21 AM EDT documented as of this encounter Care Teams Leather Currier Relationship Specialty Start Date End Date Audra Kenyon NP 150 [place] [address] PCP - General Internal Medicine 11/25/17 08/01/20 Mariangel Roblero CNP [address] [place] [address] [address] [place] [address] PCP - General Internal Medicine 08/02/20 Audra Kenyon NP 150 [place] [address] Historical LMR Provider 09/14/17 Ed Casey DO [address] [place] [address] [facility] [place] [place] [address] Historical LMR Provider 09/14/17 12/02/21 Savana Casiano MD [address] [place] [address] Historical LMR Provider 09/14/17 2 Jeannette Lynn MD [address] [place] [address] [facility], [place] [address] Historical LMR Provider 09/14/17 documented as of this encounter Additional Source Comments The information contained in this document represents components of the legal health record. It is not the complete legal health record.[facility]
--- OUTSIDE RECORDS SUMMARY | 2025-09-13 19:07 | XMS_ITS | Encounter Summary ---
Author Organization [facility] Address [address] [place] [address] Phone Care Team Providers Care Trader Fixed Income Name Role Phone [email or web address] drummond ENGINEERING DOCUMENT CONTROL CLERK Unavailable Ed Casey DO Unavailable Savana Casiano MD Unavailable [phone] Jeannette Lynn MD Unavailable [phone] TRUCK DRIVER Primary Care Provider Encounter Details Date Type Department Care Team (Late Contact Info) Description 10/13/2021 Transcribe Orders [facility] 30 [place] [address] Mariangel Roblero, HIGHWAY TRUCK DRIVER 14 [facility] [address] [place], [place] [phone] [email or web address] Social History Tobacco Use Types Packs/Day Years [...] Upcoming Encounters Date Type Department Care Team ([facility] Contact Info) Description 09/14/2025 11:40 AM EDT Office Visit [facility] Internal Medicine 14 [facility] [address] [place] [address] Mariangel Roblero CNP [address] [address] 09/21/2025 11:30 AM EDT Office Visit [facility] Gastroenterology Clinic 10 [place] [address] Unknown, Unknown, Flori Mendez PA-C [address] [address] 09/22/2025 10:00 AM EDT Office Visit [facility] [place] Internal Medicine [address] [address] Mariangel Roblero CNP [address] [address] documented as of this encounter Visit Diagnoses Not on filedocumented in this encounter Additional Health Concerns Infection Onset Date Last Indicated Resolved Time CoV-Risk 04/17/2022 04/18/2022 04/29/2022 1:22 AM EDT CoV-Risk 11/07/2023 11/07/2023 11/18/2023 1:22 AM EST COVID-19 07/20/2025 07/20/2025 08/10/2025 1:21 AM EDT Assessment Noted Time PHQ-2 Depression Total Score: 2 08/29/20 11:11 AM EDT documented as of this encounter Care Teams Trader Fixed Income Relationship Specialty Start Date End Date Mariangel Roblero CNP [address] [address] PCP - General Internal Medicine 08/02/20 Audra Kenyon, ENGINEERING DOCUMENT CONTROL CLERK [address] [place] [address] Historical LMR Provider 09/14/17 Ed Casey DO [address] [place] [address] [facility], [place] [address] [email or web address] Historical LMR Provider 09/14/17 12/02/21 Savana Casiano MD [address] [place] [address] Historical LMR Provider 09/14/17 2 Jeannette Lynn MD [address] [place] [address] [facility], [place] [address] [email or web address] Historical LMR Provider 09/14/17 documented as of this encounter Additional Source Comments The information contained in this document represents components of the legal health record. It is not the complete legal health record.[facility]
--- OUTSIDE RECORDS SUMMARY | 2025-09-13 19:07 | XMS_ITS | Encounter Summary ---
Author Organization [facility] Address [address] [place] [address] Phone Care Team Providers Care Pocket Operator Name Role Phone Audra Kenyon ASSOCIATE FIELD SERVICE ENGINEER Unavailable [phone] Mariangel Roblero CNP Primary Care Provider Reason for Visit * Reason Onset Date Comments Eye surgery cancelled 09/07/2025 Encounter Details Date Type Department Care Team (Late st Contact Info) Description 09/07/2025 Telephone [facility] [place] Internal Medicine [address] [place] [address] [id number] Skylar Myers [place] 14 [place] [address] [email or web address] Eye surgery cancelled Social History Tobacco Use Types Packs/Day Years [...] on file documented as of this encounter Progress Notes * Dona Cartagena - 09/13/2025 11:28 AM EDT System shows appt 09/14 * Skylar Myers MA - 09/07/2025 2:55 PM EDT Appt scheduled * Mariangel Roblero CNP - 09/07/2025 12:56 PM EDT She probably needs another FUV to recheck BP. If okay, we can send clearance note to Dr. Mckeon. Thanks. * Skylar Myers MA - 09/07/2025 12:48 PM EDT Patient called to say that she went in for her eyelid surgery and her BP was a little elevated. Patient said that her BP has been great. Patient thinks that it had a lot to do with the nurse who was taking the BP. Nurse was talking to patient while BP cuff was on (patient usually does not talk while her BP is being taken while in our office) Nurse also started asking patient questions about her and she could tell she became anxious. Dr. Mckeon wanted patient to contact PCP and she what shewould like to do. Appt? Restart meds? Letter to ? documented in this encounter Plan of Treatment Upcoming Encounters Date Type Department Care Team (Late st Contact Info) Description 09/14/2025 11:40 AM EDT Office Visit [facility] Internal Medicine 14 [facility] [address] [place] [address] Mariangel Roblero CNP 14 [facility] [address] [place] [address] 09/21/2025 11:30 AM EDT Office Visit [facility] Clinic 10 [place] [address] Unknown, Unknown, Flori Mendez PA-C [address] [address] 09/22/2025 10:00 AM EDT Office Visit [facility] Internal Medicine 14 [facility] [address] [place] [address] Mariangel Roblero CNP [address] [address] documented as of this encounter Visit Diagnoses Not on filedocumented in this encounter Additional Health Concerns Assessment Noted Time PHQ-2 Depression Total Score: 1 09/16/20 24 9:14 AM EDT documented as of this encounter Care Teams Pocket Operator Relationship Specialty Start Date End Date Mariangel Roblero CNP 14 [facility] [address] [place] [address] PCP - General Internal Medicine 08/02/20 Audra Kenyon, ASSOCIATE FIELD SERVICE ENGINEER [address] [place] [address] Historical LMR Provider 09/14/17 documented as of this encounter Additional Source Comments The information contained in this document represents components of the legal health record. It is not the complete legal health record.[facility]
--- OUTSIDE RECORDS SUMMARY | 2025-09-13 19:07 | XMS_ITS | Encounter Summary ---
Author Organization [facility] Address [address] [place] [address] Phone Care Team Providers Care Casualty Claim Adjuster Name Role Phone Maynorbeatrice Audra Kwabena RN OCCUPATIONAL Unavailable [phone] Mariangel Roblero CNP Primary Care Provider Reason for Visit * Reason Onset Date Comments COVID-19 07/20/2025 Encounter Details Date Type Department Care Team (Late st Contact Info) Description 07/21/2025 Telephone [facility] [place] Internal Medicine 14 [facility] [address] [place], [place] [phone] Mariangel Roblero, MISAEL 14 [facility] [address] [place], [place] [phone] [email or web address] COVID-19 Social History Tobacco Use Types Packs/Day Years [...] as of this encounter Progress Notes * Mariangel Roblero CNP - 07/21/2025 9:42 AM EDT Agree with plan. Thank you. * Kerri Hernández RN - 07/21/2025 9:26 AM EDT Call made to patient to review 2 nights ago woke up at 3 am, head hurting a lot Yesterday afternoon she felt like she had a fever so she did a COVID test and had a faint line Unsure where she picked it up She is having some nasal congestion, post nasal drip, sore throat, headache, and pretty bad body aches Has been taking tylenol with oxycodone for her body aches Staying well hydrated and using chloraseptic throat spray with relief Reviewed Paxlovid, how it is taken, side effects and medication interactions She would like to defer for now She will call back if symptoms are worsening or not improving * Precious Diaz - 07/21/2025 8:54 AM EDT Pt LVM on triage line stating she tested positive for Covid yesterday. Pt stated that there is a medication she can take to get over it a bit faster and would like to take it. Plesae contact and advise. Central Support Trophy Assembler (Please do not reply to this user; this inbox is not monitored.) Thank you. documented in this encounter Plan of Treatment Upcoming Encounters Date Type Department Care Team (Late st Contact Info) Description 09/14/2025 11:40 AM EDT Office Visit [facility] Internal Medicine 14 [facility] [address] [place] [address] Mariangel Roblero, DIRECTOR OF INTELLIGENCE 14 [facility] [address] [place] [address] 09/21/2025 11:30 AM EDT Office Visit [facility] 10 [place] [address] Unknown, Unknown, Flori Mendez PA-C [address] [address] 09/22/2025 10:00 AM EDT Office Visit [facility] Internal Medicine [address] [address] Mariangel Roblero, DIRECTOR OF INTELLIGENCE [address] [address] documented as of this encounter Procedures Procedure Name Priority Date/Time Associated Diagnosis Comments COVID-19 ANTIGEN EXTERNAL ORDER Routine 07/20/2025 9:37 AM EDT documented in this encounter Results * (ABNORMAL) COVID-19 Antigen External Order (07/20/2025 9:37 AM EDT) Source Nasal swab Comment:patient reported SARS-CoV-2 (COVID-19) antigen POSITIVE-V alid Control(A) NEGATIVE-Va lid Control 07/20/2025 9:37 AM EDT us Historical Provider BODY FLUIDS AND STOOLS OR DERABLES Final Result documented in this encounter Visit Diagnoses Not on filedocumented in this encounter Additional Health Concerns Infection Onset Date Last Indicated Resolved Time COVID-19 07/20/2025 07/20/2025 08/10/2025 1:21 AM EDT Assessment Noted Time PHQ-2 Depression Total Score: 1 09/16/20 24 9:14 AM EDT documented as of this encounter Care Teams Casualty Claim Adjuster Relationship Specialty Start Date End Date Mariangel Roblero CNP [address] [place], [place] [address] [place] [address] PCP - General Internal Medicine 08/02/20 Audra Kenyon, BECKI [address] [place] [address] Historical LMR Provider 09/14/17 documented as of this encounter Additional Source Comments The information contained in this document represents components of the legal health record. It is not the complete legal health record.[facility]
--- OUTSIDE RECORDS SUMMARY | 2025-09-13 19:07 | XMS_ITS | Encounter Summary ---
Author Organization [facility] Address [address] [place] [address] Phone Care Team Providers Care Credit Risk Review Officer Name Role Phone Maynorbeatrice Audra Yuan SEW OUT OPERATOR Unavailable [phone] Mariangel Roblero CNP Primary Care Provider Encounter Details Date Type Department Care Team (Latest Contact Info) Description 06/26/2023 Transcribe Orders [facility] [address] [place] [address] Flori Chua PA 10 [place] [address] FHx: colon cancer (Primary Dx) Social History [...] Description 09/14/2025 11:40 AM EDT Office Visit [facility] Internal Medicine 14 [facility] [address] [place] [address] Mariangel Roblero, MISAEL [address] [address] 09/21/2025 11:30 AM EDT Office Visit [facility] Gastroenterology Clinic 10 [place] [address] Unknown, Unknown, Flori Mendez PA-C [address] [address] 09/22/2025 10:00 AM EDT Office Visit [facility] Internal Medicine [address] [address] Mariangel Roblero, MISAEL [address] [address] documented as of this encounter Results * (ABNORMAL) Comprehensive metabolic panel (06/26/2023 1:45 PM EDT) SODIUM 134 133 - 146 mmol/L [facility] POTASSIUM 4.8 3.3 - 5.1 mmol/L [facility] CHLORIDE 97 96 - 108 mmol/L [facility] CO2 26 21 - 35 mmol/L [facility] BUN 23(H) 6 - 19 mg/dL [facility] CREATININE 0.80 0.5 - 1.5 mg/dL [facility] GLUCOSE 94 70 - 99 mg/dL [facility] ALBUMIN 4.4 3.9 - 4.8 g/dL [facility] TOTAL PROTEIN 7.0 6.5 - 8.0 g/dL [facility] CALCIUM 9.2 8.4 - 10.3 mg/dL [facility] ALKALINE PHOSPHATASE 87 39 - 117 U/L [facility] TOTAL BILIRUBIN 0.3 0.0 - 1.2 mg/dL [facility] AST 25 0 - 37 U/L [facility] ALT 15 0 - 40 U/L [facility] GLOBULIN 2.6 1 - 4.8 g/dL [facility] EGFR 80 >59 mL/min/1.7 3m2 [facility] Comment:Estimated glomerular filtration rate calculated using the CKD-EPI refit equation. ANION GAP 16 10 - 20 mmol/L [facility] Blood 06/26/2023 1:45 PM EDT 06/26/2023 1:54 PM EDT us Flori BLAKE LAB BLOOD ORDERABLES Final Result [address] [address] * CBC (06/26/2023 1:45 PM EDT) WBC 6.76 4.00 - 11.00 K/uL [facility] RBC 4.77 3.72 - 5.30 M/uL [facility] HGB 13.5 11.4 - 15.9 g/dL [facility] HCT 41.9 34.2 - 46.8 % [facility] PLT 360 140 - 430 K/uL [facility] MCV 87.8 78.0 - 97.0 fL [facility] MCH 28.3 25.0 - 33.0 pg [facility] MCHC 32.2 32.0 - 36.0 g/dL [facility] RDW 16.0 11.0 - 16.0 % [facility] MPV 9.2 8.4 - 12.8 fl [facility] Blood 06/26/2023 1:45 PM EDT 06/26/2023 1:54 PM EDT us Flori BLAKE LAB BLOOD ORDERABLES Final Result Performing Organization Address City/[facility]/ZIP Co de Phone Number [address] [address] documented in this encounter Visit Diagnoses Diagnosis [...] documented as of this encounter Care Teams Credit Risk Review Officer Relationship Specialty Start Date End Date Mariangel Roblero CNP [address] [place] [address] 765 [place] [address] [email or web address] PCP - General Internal Medicine 08/02/20 Audra Kenyon, SEW OUT OPERATOR [address] [place] [address] Historical LMR Provider 09/14/17 documented as of this encounter Additional Source Comments The information contained in this document represents components of the legal health record. It is not the complete legal health record.[facility]
--- OUTSIDE RECORDS SUMMARY | 2025-09-13 19:07 | XMS_ITS | Encounter Summary ---
Author Organization [facility] Address [address] [place] [address] Phone Care Team Providers Care Stem Roller Or Crusher Operator Name Role Phone Maynormabelbhanu Audra Yuan GROUP TESTER Unavailable [phone] Mariangel Roblero CNP Primary Care Provider Encounter Details Date Type Department Care Team (Late st Contact Info) Description 03/31/2024 Procedure Pass [facility], [address] [address] Social History Tobacco Use Types Packs/Day Years [...] Description 09/14/2025 11:40 AM EDT Office Visit [facility] Internal Medicine [address] [address] Mariangel Roblero CNP [address] [address] [email or web address] 09/21/2025 11:30 AM EDT Office Visit [facility] Gastroenterology Clinic 10 [place] [address] Unknown, Unknown, Flori Mendez PA-C [address] [address] 09/22/2025 10:00 AM EDT Office Visit [facility] [address] [address] Mariangel Roblero CNP [address] [address] [email or web address] documented as of this encounter Visit Diagnoses Not on filedocumented in this encounter Additional Health Concerns Infection Onset Date Last Indicated Resolved Time COVID-19 07/20/2025 07/20/2025 08/10/2025 1:21 AM EDT Assessment Noted Time PHQ-2 Depression Total Score: 0 09/04/20 23 11:17 AM EDT documented as of this encounter Care Teams Stem Roller Or Crusher Operator Relationship Specialty Start Date End Date Mariangel Roblero CNP [address] [place] [address] [email or web address] PCP - General Internal Medicine 08/02/20 uAdra Kenyon NP [address] [place] [address] Historical LMR Provider 09/14/17 documented as of this encounter Additional Source Comments The information contained in this document represents components of the legal health record. It is not the complete legal health record.[facility]
--- OUTSIDE RECORDS SUMMARY | 2025-09-13 19:07 | XMS_ITS | Encounter Summary ---
Author Organization [facility] Address [address] [place] [address] Phone Care Team Providers Care Body Shop Floorperson Name Role Phone Maynorbeatrice Audra Kwabena ENTERPRISE SYSTEMS MANAGER Unavailable [phone] Mariangel Roblero CNP Primary Care Provider Encounter Details Date Type Department Care Team (Latest Contact Info) Description 01/03/2023 Transcribe Orders [facility] 10 [facility] 2nd [place] [address] Flori Chua PA 10 [place] [address] FHx: colon cancer (Primary Dx); Hereditary hemochromatosis [...] EDT Office Visit [facility] Internal Medicine 14 [facility] [address] [place] [address] Mariangel Roblero CNP 14 [facility] [address] [place], [place] [phone] 09/21/2025 11:30 AM EDT Office Visit [facility] Gastro[facility]ology Clinic 10 [place] [address] Unknown, Unknown, Flori Mendez PA-C [address] [address] 09/22/2025 10:00 AM EDT Office Visit [facility] Internal Medicine 14 [facility] [address] [place] [address] Mariangel Roblero, TOLL LINE INSPECTOR 14 [facility] [address] [place], [place] [phone] [email or web address] documented as of this encounter Results * (ABNORMAL) Comprehensive metabolic panel (01/03/2023 3:17 PM EST) SODIUM 137 133 - 146 mmol/L [facility] POTASSIUM 4.9 3.3 - 5.1 mmol/L [facility] CHLORIDE 98 96 - 108 mmol/L [facility] CO2 29 21 - 35 mmol/L [facility] BUN 28(H) 6 - 19 mg/dL [facility] CREATININE 2.10(H) 0.5 - 1.5 mg/dL [facility] GLUCOSE 65(L) 70 - 99 mg/dL [facility] ALBUMIN 4.4 3.9 - 4.8 g/dL [facility] TOTAL PROTEIN 7.3 6.5 - 8.0 g/dL [facility] CALCIUM 9.6 8.4 - 10.3 mg/dL [facility] ALKALINE PHOSPHATASE 97 39 - 117 U/L [facility] TOTAL BILIRUBIN 0.2 0.0 - 1.2 mg/dL [facility] AST 18 0 - 37 U/L [facility] ALT 15 0 - 40 U/L [facility] GLOBULIN 2.9 1 - 4.8 g/dL [facility] EGFR 25(L) >59 mL/min/1.7 3m2 [facility] Comment:Estimated glomerular filtration rate calculated using the CKD-EPI refit equation. ANION GAP 15 10 - 20 mmol/L [facility] Blood 01/03/2023 3:17 PM EST 01/03/2023 3:21 PM EST us Flori BLAKE LAB BLOOD ORDERABLES Final Result [address] [address] * Liver fibrosis test (01/03/2023 3:17 PM EST) Fibrosis score 0.08 [facility] Interpretation (Fibrosis) SEE NOTE [facility] Comment: (NOTE) no fibrosis Fibro Test Score [...] HCV Fibrosis Grade F0 Q [facility] NECROINFLAMM SCORE 0.02 Q [facility] NECROINFLAMM GRADE A0 Q [facility] NECROINFLAMM INTERP SEE NOTE [facility] Comment: (NOTE) no activity ActiTest Score (a) [...] A2 Macroglobulin 173 106 - 279 mg/dL [employer] [employer] [facility] Haptoglobin 180 43 - 212 mg/dL [employer] Apolipoprotein A1 179 101 - 198 mg/dL [employer] TOTAL BILIRUBIN 0.3 0.2 - 1.2 mg/dL [employer] GGT 23 3 - 65 U/L [employer] ALT 11 6 - 29 U/L [employer] Specimen/Product ID [id number] [employer] Comments (Chemistry) SEE NOTE [employer] Comment: (NOTE) The reliability of results is dependent on compliance with the preanalytical and analytical conditions recommended by [employer]. The tests have to be deferred for: [...] The performance characteristics have been determined by [facility]. It has not been cleared or approved by the U.S. Food and Drug Administration. Performance characteristics refer to the analytical performance of the test. [employer], the associated logo, [employer] and all associated [employer] foreman are the registered trademarks of [employer]. All third republican foreman - (R) and (TM) - are the property of their respective owners. (C) [id number] [employer]. All rights reserved. Blood 01/03/2023 3:17 PM EST 01/03/2023 3:21 PM EST us Flori BLAKE LAB BLOOD ORDERABLES Final Result [facility] [address] [place] [address], [facility] [phone] documented in this encounter Visit Diagnoses Diagnosis [...] documented as of this encounter Care Teams Body Shop Floorperson Relationship Specialty Start Date End Date Mariangel Roblero CNP [address] [place] [address] [email or web address] PCP - General Internal Medicine 08/02/20 Audra Kenyon, BECKI [address] [place] [address] Historical LMR Provider 09/14/17 documented as of this encounter Additional Source Comments The information contained in this document represents components of the legal health record. It is not the complete legal health record.[facility]
--- OUTSIDE RECORDS SUMMARY | 2025-09-13 19:07 | XMS_ITS | Encounter Summary ---
Author Organization [facility] Address [address] [place] [address] Phone Care Team Providers Care Auto Service Mechanic Name Role Phone Audra Kenyon TEACHER COUNSELOR Unavailable [phone] Mariangel Roblero CNP Primary Care Provider Encounter Details Date Type Department Care Team (Late st Contact Info) Description 03/17/2025 Procedure Pass [facility], [address] [address] Social History Tobacco Use Types Packs/Day Years [...] Upcoming Encounters Date Type Department Care Team ([facility] st Contact Info) Description 09/14/2025 11:40 AM EDT Office Visit [facility] Internal Medicine 14 [facility] [address] [place] [address] Mariangel Roblero CNP [address] [address] [email or web address] 09/21/2025 11:30 AM EDT Office Visit [facility] Gastroenterology Clinic [address] [place] [address] Unknown, Unknown, Flori Mendez PA-C [address] [place] [address] 09/22/2025 10:00 AM EDT Office Visit [facility] Internal Medicine [address] [address] Mariangel Roblero CNP [address] [address] documented as of this encounter Visit Diagnoses Not on filedocumented in this encounter Additional Health Concerns Infection Onset Date Last Indicated Resolved Time COVID-19 07/20/2025 07/20/2025 08/10/2025 1:21 AM EDT Assessment Noted Time PHQ-2 Depression Total Score: 1 09/16/20 24 9:14 AM EDT documented as of this encounter Care Teams Auto Service Mechanic Relationship Specialty Start Date End Date Mariangel Roblero CNP [address] [address] PCP - General Internal Medicine 08/02/20 Audra Kenyon NP [address] [place] [address] Historical LMR Provider 09/14/17 documented as of this encounter Additional Source Comments The information contained in this document represents components of the legal health record. It is not the complete legal health record.[facility]
--- OUTSIDE RECORDS SUMMARY | 2025-09-13 19:08 | XMS_ITS | Encounter Summary ---
Author Organization [facility] Address [address] [place] [address] Phone Care Team Providers Care Subsurface Augmentee Operator Name Role Phone Audra Kenyon Kwabena SUPERVISOR CELL MAINTENANCE Unavailable Mariangel Roblero CNP Primary Care Provider Encounter Details Date Type Department Care Team (Late Contact Info) Description 01/01/2022 Transcribe Orders Virtual Department 30 [place] [address] Mariangel Roblero CNP 14 [facility] [address] [place] [address] Breast screening (Primary Dx) Social History Tobacco [...] EDT Office Visit [facility] Internal Medicine 14 [facility] [address] [place], [place] [phone] Mariangel Roblero CNP 14 [facility] [address] [place], [place] [phone] 09/21/2025 11:30 AM EDT Office Visit [facility] Gastroenterology Clinic 10 [place] [address] Unknown, Unknown, Flori Mendez PA-C 10 [facility] 2 [place] [address] 09/22/2025 10:00 AM EDT Office Visit [facility] Internal Medicine 14 [facility] [address] [place] [address] Mariangel Roblero, EMERGENCY MEDICAL SERVICE MANAGER 14 [facility] [address] [place] [address] documented as of this encounter Results * [...] breast vascular calcifications. No mass or distortion. us Mariangel Roblero EMERGENCY MEDICAL SERVICE MANAGER IMG MG EXAMS Final Result documented in [...] documented as of this encounter Care Teams Subsurface Augmentee Operator Relationship Specialty Start Date End Date Mariangel Roblero CNP [address] [place] [address] 765 [place] [address] PCP - General Internal Medicine 08/02/20 Audra Kenyon, BECKI [address] [place] [address] Historical LMR Provider 09/14/17 documented as of this encounter Additional Source Comments The information contained in this document represents components of the legal health record. It is not the complete legal health record.[facility]
--- OUTSIDE RECORDS SUMMARY | 2025-09-13 19:08 | XMS_ITS | Encounter Summary ---
Author Organization [facility] Address [address] [employer] [facility] [address] [place] [address] Phone Care Team Providers Care Driver Helper Name Role Phone Audra Kenyon NP Unavailable dE Casey DO Unavailable [phone] Savana Casiano MD Unavailable [phone] Jeannette Lynn MD Unavailable Mariangel Roblero CNP Primary Care Provider Encounter Details Date Type Department Care Team (Late st Contact Info) Description 11/11/2020 Procedure Pass [facility], [address] [address] Social History Tobacco Use Types Packs/Day Years [...] Description 09/14/2025 11:40 AM EDT Office Visit [facility] Internal Medicine 14 [facility] [address] [place] [address] Mariangel Roblero, O AND M SUPERVISOR 14 [facility] [address] [place] [address] 09/21/2025 11:30 AM EDT Office Visit [facility] 10 [place] [address] Unknown, Unknown, Flori Mendez PA-C [address] [address] 09/22/2025 10:00 AM EDT Office Visit [facility] Internal Medicine 14 [facility] [address] [place] [address] Mariangel Roblero, O AND M SUPERVISOR [address] [address] documented as of this encounter Visit Diagnoses Not on filedocumented in this encounter Additional Health Concerns Infection Onset Date Last Indicated Resolved Time CoV-Risk 03/08/2021 03/08/2021 03/08/2021 4:47 PM EDT COVID-19 Comment:Setting expiration date via import due to [facility] policy change to align auto-expiration of infection statuses for patients to apply to employees as of 05/08/2021; contact [facility] with any questions. 03/08/2021 03/08/2021 05/09/2021 1:23 AM E DT CoV-Risk 04/17/2022 04/18/2022 04/29/2022 1:22 AM EDT CoV-Risk 11/07/2023 11/07/2023 11/18/2023 1:22 AM EST COVID-19 07/20/2025 07/20/2025 08/10/2025 1:21 AM EDT documented as of this encounter Care Teams Driver Helper Relationship Specialty Start Date End Date Mariangel Roblero CNP 14 [facility] [address] [place] [address] PCP - General Internal Medicine 08/02/20 Audra Kenyon NP [address] [place] [address] Historical LMR Provider 09/14/17 Ed Casey DO [address] [place] [address] [facility], [place] [address] Historical LMR Provider 09/14/17 12/02/21 Savana Casiano MD [address] [place] [address] Historical LMR Provider 09/14/17 Jeannette Reyna MD [address] [place] [address] Orthopedics & Sports [facility], [place], [place] [phone] Historical LMR Provider 09/14/17 documented as of this encounter Additional Source Comments The information contained in this document represents components of the legal health record. It is not the complete legal health record.[facility]
--- OUTSIDE RECORDS SUMMARY | 2025-09-13 19:08 | XMS_ITS | Encounter Summary ---
Author Organization [facility] Address [address] [facility] [address] [place] [address] Phone Care Team Providers Care Conservation Agent Name Role Phone MaynormabelAudra drummond SCHOOL PSYCHOLOGIST Unavailable Ed Casey DO Unavailable [phone] Savana Casiano MD Unavailable [phone] Jeannette Lynn MD Unavailable Mariangel Roblero SKIN WASHER Primary Care Provider Encounter Details Date Type Department Care Team (Late st Contact Info) Description 01/04/2021 Ancillary Orders [facility] Internal Medicine [id number] [place], [place] [phone] Mariangel Roblero, SKIN WASHER 14 [facility] [address] [place] [phone] [email or web address] Social History Tobacco Use Types Packs/Day Years [...] Description 09/14/2025 11:40 AM EDT Office Visit [facility] Internal Medicine 14 [facility] [address] [place] [address] Mariangel Roblero CNP 14 [facility] [address] [place] [address] [email or web address] 09/21/2025 11:30 AM EDT Office Visit [facility] 10 [place] [address] Unknown, Unknown, Flori Mendez PA-C [address] [address] [email or web address] 09/22/2025 10:00 AM EDT Office Visit [facility] Internal Medicine [address] [address] Mariangel Roblero CNP [address] [address] [email or web address] documented as of this encounter Visit Diagnoses Not on filedocumented in this encounter Additional Health Concerns Infection Onset Date Last Indicated Resolved Time CoV-Risk 03/08/2021 03/08/2021 03/08/2021 4:47 PM EDT COVID-19 Comment:Setting expiration date via import due to [facility] policy change to align auto-expiration of infection statuses for patients to apply to employees as of 05/08/2021; contact [facility] with any questions. 03/08/2021 03/08/2021 05/09/2021 1:23 AM E DT CoV-Risk 04/17/2022 04/18/2022 04/29/2022 1:22 AM EDT CoV-Risk 11/07/2023 11/07/2023 11/18/2023 1:22 AM EST COVID-19 07/20/2025 07/20/2025 08/10/2025 1:21 AM EDT documented as of this encounter Care Teams Conservation Agent Relationship Specialty Start Date End Date Mariangel Roblero CNP 14 [facility] [address] [place] [address] PCP - General Internal Medicine 08/02/20 Audra Kenyon NP [address] [place] [address] Historical LMR Provider 09/14/17 Ed Casey DO [address] [place] [address] [facility] [place] [address] Historical LMR Provider 09/14/17 12/02/21 Savana Casiano MD [address] [place] [address] Historical LMR Provider 09/14/17 2 Jeannette Lynn MD [address] [place] [address] [facility], [place] [address] Historical LMR Provider 09/14/17 documented as of this encounter Additional Source Comments The information contained in this document represents components of the legal health record. It is not the complete legal health record.[facility]
--- OUTSIDE RECORDS SUMMARY | 2025-09-13 19:08 | XMS_ITS | Encounter Summary ---
Author Organization [facility] Address [address] [facility] [address] [place] [address] Phone Care Team Providers Care Watch Repairer Name Role Phone MaynormabelAudra drummond TRAILER STEERER Unavailable Ed Casey DO Unavailable Savana Casiano MD Unavailable [phone] Jeannette Lynn MD Unavailable Mariangel Roblero NEONATAL NURSE PRACTITIONER Primary Care Provider Encounter Details Date Type Department Care Team (Late Contact Info) Description 01/04/2021 Ancillary Orders Virtual Department 30 [place] [address] Mariangel Roblero, NEONATAL NURSE PRACTITIONER 14 [facility] [address] [place] [phone] Breast screening Social History Tobacco Use Types [...] 09/14/2025 11:40 AM EDT Office Visit [facility] Internal Medicine [address] [address] Mariangel Roblero, NEONATAL NURSE PRACTITIONER [address] [address] 09/21/2025 11:30 AM EDT Office Visit [facility] 10 [place] [address] Unknown, Unknown, Flori Mendez PA-C [address] [address] 09/22/2025 10:00 AM EDT Office Visit [facility] Internal Medicine [address] [address] Mariangel Roblero, NEONATAL NURSE PRACTITIONER [address] [address] documented as of this encounter Results * [...] could obscurea lesion on mammography. Mariangel Roblero CNP IMG MG EXAMS Final Result documented in this encounter Visit Diagnoses Diagnosis Breast screening Breast screening, unspecified Breast screening Breast screening, unspecified documented in this encounter Additional Health Concerns Infection Onset Date Last Indicated Resolved Time CoV-Risk 03/08/2021 03/08/2021 03/08/2021 4:47 PM EDT COVID-19 Comment:Setting expiration date via import due to [facility] policy change to align auto-expiration of infection statuses for patients to apply to employees as of 05/08/2021; contact [facility] Services with any questions. 03/08/2021 03/08/2021 05/09/2021 1:23 AM E DT CoV-Risk 04/17/2022 04/18/2022 04/29/2022 1:22 AM EDT CoV-Risk 11/07/2023 11/07/2023 11/18/2023 1:22 AM EST COVID-19 07/20/2025 07/20/2025 08/10/2025 1:21 AM EDT documented as of this encounter Care Teams Watch Repairer Relationship Specialty Start Date End Date Mariangel Roblero CNP [address] [place] [address] PCP - General Internal Medicine 08/02/20 Audra Kenyon, BECKI [address] [place] [address] Historical LMR Provider 09/14/17 Ed Casey DO [address] [place] [address] [facility], [place] [address] Historical LMR Provider 09/14/17 12/02/21 Savana Casiano MD [address] [place] [address] Historical LMR Provider 09/14/17 2 Jeannette Lynn MD [address] [place] [address] [facility], [place] [address] Historical LMR Provider 09/14/17 documented as of this encounter Additional Source Comments The information contained in this document represents components of the legal health record. It is not the complete legal health record.[facility]
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
--- OUTSIDE RECORDS SUMMARY | 2025-09-13 19:08 | XMS_ITS | Encounter Summary ---
Author Organization [facility] Address [address] [place] [address] Phone Care Team Providers Care Thread Clipper Name Role Phone Maynorbeatrice Audra Kwabena VIDEO TAPE DUPLICATOR Unavailable Ed Casey DO Unavailable Savana Casiano MD Unavailable [phone] Jeannette Lynn MD Unavailable Mariangel Roblero OWNER OPERATOR TANKER TRUCK DRIVER Primary Care Provider Encounter Details Date Type Department Care Team (Late st Contact Info) Description 01/04/2021 Procedure Pass [facility], [address] [address] Social History Tobacco Use Types Packs/Day Years [...] Description 09/14/2025 11:40 AM EDT Office Visit [facility] 14 [facility] [address] [place], [place] [phone] Mariangel Roblero, OWNER OPERATOR TANKER TRUCK DRIVER 14 [facility] [address] [place], [place] [id number] 09/21/2025 11:30 AM EDT Office Visit [facility] [address] [place] [address] Unknown, Unknown, Flori Mendez PA-C [address] [address] 09/22/2025 10:00 AM EDT Office Visit [facility] [place] 14 [facility] [address] [place] [address] Mariangel Roblero CNP 14 [facility] [address] [place] [address] [email or web address] documented as of this encounter Visit Diagnoses Not on filedocumented in this encounter Additional Health Concerns Infection Onset Date Last Indicated Resolved Time CoV-Risk 03/08/2021 03/08/2021 03/08/2021 4:47 PM EDT COVID-19 Comment:Setting expiration date via import due to [facility] policy change to align auto-expiration of infection statuses for patients to apply to employees as of 05/08/2021; contact [facility] with any questions. 03/08/2021 03/08/2021 05/09/2021 1:23 AM E DT CoV-Risk 04/17/2022 04/18/2022 04/29/2022 1:22 AM EDT CoV-Risk 11/07/2023 11/07/2023 11/18/2023 1:22 AM EST COVID-19 07/20/2025 07/20/2025 08/10/2025 1:21 AM EDT documented as of this encounter Care Teams Thread Clipper Relationship Specialty Start Date End Date Mariangel Roblero CNP 14 [facility] [address] [place] [address] PCP - General Internal Medicine 08/02/20 Audra Kenyon NP [address] [place] [address] Historical LMR Provider 09/14/17 Ed Casey DO [address] [place] [address] [facility], [place] [address] Historical LMR Provider 09/14/17 12/02/21 Savana Casiano MD [address] [place] [address] Historical LMR Provider 09/14/17 2 Jeannette Lynn MD [address] [place] [address] [facility], [place] [address] Historical LMR Provider 09/14/17 documented as of this encounter Additional Source Comments The information contained in this document represents components of the legal health record. It is not the complete legal health record.[facility]
--- OUTSIDE RECORDS SUMMARY | 2025-09-13 19:08 | XMS_ITS | Encounter Summary ---
Author Organization [facility] Address [address] [place] [address] Phone Care Team Providers Care Outside Dealer Sales Representative Name Role Phone Audra Kenyon Kwabena JEWELRY MANAGER Unavailable Mariangel Roblero MYSQL DEVELOPER Primary Care Provider Encounter Details Date Type Department Care Team (Latest Contact Info) Description 09/25/2022 Transcribe Orders Virtual Department 30 [place] [address] Flori Chua PA 10 [place] [address] Elevated LFTs (Primary Dx) Social History Tobacco [...] 09/14/2025 11:40 AM EDT Office Visit [facility] 14 [facility] [address] [place], [place] [phone] Mariangel Roblero, MYSQL DEVELOPER 14 [facility] [address] [place], [place] [phone] 09/21/2025 11:30 AM EDT Office Visit [facility] 10 [place] [address] Unknown, Unknown, Flori Mendez PA-C 10 [facility] 2 [place] [address] 09/22/2025 10:00 AM EDT Office Visit [facility] 14 [facility] [address] [place] [address] [place], Mariangel Woody, MYSQL DEVELOPER 14 [facility] [address] [place] [address] [email or web address] documented as of this encounter Results * [...] documented as of this encounter Care Teams Outside Dealer Sales Representative Relationship Specialty Start Date End Date Mariangel Roblero CNP [address] [place] [address] PCP - General Internal Medicine 08/02/20 Audra Kenyon NP [address] [place] [address] Historical LMR Provider 09/14/17 documented as of this encounter Additional Source Comments The information contained in this document represents components of the legal health record. It is not the complete legal health record.[facility]
--- OUTSIDE RECORDS SUMMARY | 2025-09-13 19:08 | XMS_ITS | Encounter Summary ---
Author Organization [facility] Address [address] [place] [address] Phone Care Team Providers Care Atomic Fuel Assembler Name Role Phone Chantale Audra Kwabena GUARD LIEUTENANT Unavailable [phone] Mariangel Roblero GRINDER LAP Primary Care Provider Encounter Details Date Type Department Care Team (Late st Contact Info) Description 01/01/2022 Procedure Pass [facility], [address] [address] Social History Tobacco Use Types Packs/Day Years [...] Description 09/14/2025 11:40 AM EDT Office Visit [facility] 14 [facility] [address] [place], [place] [phone] Mariangel Roblero, MISAEL 14 [facility] [address] [place], [place] [phone] 09/21/2025 11:30 AM EDT Office Visit [facility] 10 [place] [address] Unknown, Unknown, Flori Mendez PA-C [address] [address] [email or web address] 09/22/2025 10:00 AM EDT Office Visit [facility] [place] [facility] 14 [facility] [address] [place] [address] Mariangel Roblero CNP 14 [facility] [address] [place] [address] [email or web address] documented as of this [...] documented as of this encounter Care Teams Atomic Fuel Assembler Relationship Specialty Start Date End Date Mariangel Roblero CNP [address] [address] PCP - General Internal Medicine 08/02/20 Audra Kenyon, GUARD LIEUTENANT [address] [place] [address] Historical LMR Provider 09/14/17 documented as of this encounter Additional Source Comments The information contained in this document represents components of the legal health record. It is not the complete legal health record.[facility]
== END 2025-09-13 14:55 | disposition home or self-care (01) ==
LOC: HO.BBR 14:54
PROVIDERS: Visit Provider Physician Assistant Medical
DX: E83.110 Hereditary hemochromatosis (principal)
CPT/HCPCS: 36415; 82728; 83540; 85025

== ENCOUNTER 2025-11-08 15:16 | Outpatient (REF) | payer MEDICARE, SELFPAY ==
[2025-11-08 15:25] LABS: MANUAL DIFF FLAG NO
[2025-11-08 15:27] LABS: Hematocrit 39.5 % (37.0-47.0); Hemoglobin 12.6 g/dl (12.0-16.0); Imm Gran Abs Auto 0.02 X10*3/uL (0.00-0.03); Imm Gran Pct Auto 0.3 % (0.0-0.4); Lymphocytes Absolute Auto 1.1 X10*3/uL (1.2-4.9); Mean Corpuscular HGB Conc 31.9 g/dl (31.0-35.0); Mean Corpuscular Hemoglobin 27.3 pg (27.0-33.0); Mean Corpuscular Volume 85.7 fL (80.0-98.0); NRBC Abs Auto 0.000 X10*3/uL (0.0-0.012); NRBC Pct Auto 0.0 /100WBC (0.0-0.2); Platelet Count 318 X10*3/uL (160-400); Red Blood Count 4.61 X10*6/uL (4.20-5.50); White Blood Count 6.9 X10*3/uL (4.8-10.8)
[2025-11-08 16:24] LABS: Iron 48 mcg/dL (30-160); Percent Iron Saturation 14 % (15-50); Total Iron Binding Capacity 352 mcg/dL (228-428); Unsaturated Iron Binding 304 ug/dL
[2025-11-08 16:42] LABS: Ferritin 13 ng/mL (10-250)
--- OUTSIDE RECORDS SUMMARY | 2025-11-08 21:45 | XMS_ITS | Encounter Summary ---
Author Organization [facility] Address [address] [facility] [facility] [address] [place] [address] Phone Care Team Providers Care Public Health Educator Name Role Phone Audra Kenyon Kwabena MEXICAN FOOD MACHINE TENDER Unavailable [phone] Mariangel Roblero CNP Primary Care Provider Encounter Details Date Type Department Care Team (Latest Contact Info) Description 01/03/2023 Transcribe Orders [facility] [address] 2nd [place] [address] Flori Chua PA 10 [place] [address] FHx: colon cancer (Primary Dx); Hereditary hemochromatosis [...] Care Team (Late st Contact Info) Description 12/15/2025 3:00 PM EST Office Visit [facility] [facility] 14 [facility] [address] [place] [address] Mariangel Roblero, MISAEL 14 [facility] [address] [place], [place] [phone] documented as of this encounter Results * (ABNORMAL) Comprehensive metabolic panel (01/03/2023 3:17 PM EST) SODIUM 137 133 - 146 mmol/L [facility] POTASSIUM 4.9 3.3 - 5.1 mmol/L [facility] CHLORIDE 98 96 - 108 mmol/L [facility] CO2 29 21 - 35 mmol/L [facility] BUN 28(H) 6 - 19 mg/dL [facility] CREATININE 2.10(H) 0.5 - 1.5 mg/dL [facility] GLUCOSE 65(L) 70 - 99 mg/dL [facility] ALBUMIN 4.4 3.9 - 4.8 g/dL [facility] TOTAL PROTEIN 7.3 6.5 - 8.0 g/dL [facility] CALCIUM 9.6 8.4 - 10.3 mg/dL [facility] ALKALINE PHOSPHATASE 97 39 - 117 U/L [facility] TOTAL BILIRUBIN 0.2 0.0 - 1.2 mg/dL [facility] AST 18 0 - 37 U/L [facility] ALT 15 0 - 40 U/L [facility] GLOBULIN 2.9 1 - 4.8 g/dL [facility] EGFR 25(L) >59 mL/min/1.7 3m2 [facility] Comment:Estimated glomerular filtration rate calculated using the CKD-EPI refit equation. ANION GAP 15 10 - 20 mmol/L [facility] Blood 01/03/2023 3:17 PM EST 01/03/2023 3:21 PM EST us Flori BLAKE LAB BLOOD BKR ORDERABLES Fi nal Result [facility] [address] [place] [address] * Liver fibrosis test (01/03/2023 3:17 PM EST) Fibrosis score 0.08 [facility] Interpretation (Fibrosis) SEE NOTE [facility] Comment: (NOTE) no fibrosis Fibro Test Score [...] HCV Fibrosis Grade F0 Q [facility] NECROINFLAMM SCORE 0.02 Q [facility] NECROINFLAMM GRADE A0 Q [facility] NECROINFLAMM INTERP SEE NOTE [facility] Comment: (NOTE) no activity ActiTest Score (a) [...] 173 106 - 279 mg/dL [facility] Haptoglobin 180 43 - 212 mg/dL [facility] Apolipoprotein A1 179 101 - 198 mg/dL [facility] TOTAL BILIRUBIN 0.3 0.2 - 1.2 mg/dL [facility] GGT 23 3 - 65 U/L [facility] ALT 11 6 - 29 U/L [facility] Specimen/Product ID [id number] [facility] Comments (Chemistry) SEE NOTE [facility] Comment: (NOTE) The reliability of results is dependent on compliance with the preanalytical and analytical conditions recommended by ITao. The tests have to be deferred for: [...] The performance characteristics have been determined by [facility]. It has not been cleared or approved by the U.S. Food and Drug Administration. Performance characteristics refer to the analytical performance of the test. Datical, the associated logo, [employer] and all associated [employer] foreman are the registered trademarks of [employer]. All third constitution party foreman - (R) and (TM) - are the property of their respective owners. (C) [id number] [employer]. All rights reserved. Blood 01/03/2023 3:17 PM EST 01/03/2023 3:21 PM EST us Flori BLAKE LAB BLOOD BKR ORDERABLES Fi nal Result [email or web address] [facility] [address] [place] [address], [facility] [phone] documented in this encounter Visit Diagnoses Diagnosis [...] documented as of this encounter Care Teams Public Health Educator Relationship Specialty Start Date End Date Mariangel Roblero CNP [address] [place] [address] [address] [place] [address] [email or web address] PCP - General Internal Medicine 08/02/20 Audra Kenyon NP [address] [place] [address] Historical LMR Provider 09/14/17 documented as of this encounter Additional Source Comments The information contained in this document represents components of the legal health record. It is not the complete legal health record.[facility]
--- OUTSIDE RECORDS SUMMARY | 2025-11-08 21:45 | XMS_ITS | Encounter Summary ---
Author Organization [facility] Address [address] [place] [address] Phone Care Team Providers Care B And B Gang Worker Name Role Phone Audra Kenyon Kwabena ASSOCIATE JUVENILE COURT JUDGE Unavailable [phone] Mariangel Roblero CNP Primary Care Provider Encounter Details Date Type Department Care Team (Late st Contact Info) Description 02/27/2023 Procedure Pass [facility], [address] [address] Social History Tobacco Use Types Packs/Day Years [...] Description 12/15/2025 3:00 PM EST Office Visit [facility] Internal Medicine 14 [facility] [address] [place], [place] [phone] Mariangel Roblero, MISAEL 14 [facility] [address] [place], [place] [phone] documented as of this encounter Visit Diagnoses Not on filedocumented in this encounter Additional Health Concerns Infection Onset Date Last Indicated Resolved Time CoV-Risk 11/07/2023 11/07/2023 11/18/2023 1:22 AM EST COVID-19 07/20/2025 07/20/2025 08/10/2025 1:21 AM EDT Assessment Noted Time PHQ-2 Depression Total Score: 0 08/31/20 22 11:21 AM EDT documented as of this encounter Care Teams B And B Gang Worker Relationship Specialty Start Date End Date Mariangel Roblero CNP [address] [place] [address] [address] [place] [address] [email or web address] PCP - General Internal Medicine 08/02/20 Audra Kenyon, BECKI [address] [place] [address] Historical LMR Provider 09/14/17 documented as of this encounter Additional Source Comments The information contained in this document represents components of the legal health record. It is not the complete legal health record.[facility]
--- OUTSIDE RECORDS SUMMARY | 2025-11-08 21:45 | XMS_ITS | Encounter Summary ---
Author Organization [facility] Address [address] [place] [address] Phone Care Team Providers Care Health Counselor Name Role Phone Audra Kenyon Kwabena DIRECTOR DIGITAL CATALOGUE Unavailable [phone] Mariangel Roblero CNP Primary Care Provider Encounter Details Date Type Department Care Team (Latest Contact Info) Description 06/26/2023 Transcribe Orders [facility] [address] 2[address] [place] [address] Flori Chua PA [address] [place] [address] FHx: colon cancer (Primary Dx) Social History [...] Description 12/15/2025 3:00 PM EST Office Visit [facility] Internal Medicine 14 [facility] [address] [place], [place] [phone] Mariangel Roblero, MISAEL 14 [facility] [address] [place] [address] documented as of this encounter Results * (ABNORMAL) Comprehensive metabolic panel (06/26/2023 1:45 PM EDT) SODIUM 134 133 - 146 mmol/L [facility] POTASSIUM 4.8 3.3 - 5.1 mmol/L [facility] CHLORIDE 97 96 - 108 mmol/L [facility] CO2 26 21 - 35 mmol/L [facility] BUN 23(H) 6 - 19 mg/dL [facility] CREATININE 0.80 0.5 - 1.5 mg/dL [facility] GLUCOSE 94 70 - 99 mg/dL [facility] ALBUMIN 4.4 3.9 - 4.8 g/dL [facility] TOTAL PROTEIN 7.0 6.5 - 8.0 g/dL [facility] CALCIUM 9.2 8.4 - 10.3 mg/dL [facility] ALKALINE PHOSPHATASE 87 39 - 117 U/L [facility] TOTAL BILIRUBIN 0.3 0.0 - 1.2 mg/dL [facility] AST 25 0 - 37 U/L [facility] ALT 15 0 - 40 U/L [facility] GLOBULIN 2.6 1 - 4.8 g/dL [facility] EGFR 80 >59 mL/min/1.7 3m2 [facility] Comment:Estimated glomerular filtration rate calculated using the CKD-EPI refit equation. ANION GAP 16 10 - 20 mmol/L [facility] Blood 06/26/2023 1:45 PM EDT 06/26/2023 1:54 PM EDT us Flori BLAKE LAB BLOOD BKR ORDERABLES Fi nal Result [address] [address] * CBC (06/26/2023 1:45 PM EDT) WBC 6.76 4.00 - 11.00 K/uL [facility] RBC 4.77 3.72 - 5.30 M/uL [facility] HGB 13.5 11.4 - 15.9 g/dL [facility] HCT 41.9 34.2 - 46.8 % [facility] PLT 360 140 - 430 K/uL [facility] MCV 87.8 78.0 - 97.0 fL [facility] MCH 28.3 25.0 - 33.0 pg [facility] MCHC 32.2 32.0 - 36.0 g/dL [facility] RDW 16.0 11.0 - 16.0 % [facility] MPV 9.2 8.4 - 12.8 fl [facility] Blood 06/26/2023 1:45 PM EDT 06/26/2023 1:54 PM EDT us Flori BLAKE LAB BLOOD BKR ORDERABLES Fi nal Result [address] [address] documented in this encounter Visit Diagnoses Diagnosis [...] documented as of this encounter Care Teams Health Counselor Relationship Specialty Start Date End Date Mariangel Roblero CNP [address] [place] [address] [place] [address] PCP - General Internal Medicine 08/02/20 Audra Kenyon NP [address] [place] [address] Historical LMR Provider 09/14/17 documented as of this encounter Additional Source Comments The information contained in this document represents components of the legal health record. It is not the complete legal health record.[facility]
--- OUTSIDE RECORDS SUMMARY | 2025-11-08 21:46 | XMS_ITS | Encounter Summary ---
Author Organization [facility] Address [address] [place] [address] Phone Care Team Providers Care Franchise Consultant Name Role Phone Maynorbeatrice Audra Yuan ROAD CONTRACTOR Unavailable Ed Casey DO Unavailable [phone] Savana Casiano MD Unavailable [phone] Jeannette Lynn MD Unavailable [phone] Mariangel Roblero WALL WASHER Primary Care Provider Encounter Details Date Type Department Care Team (Late Contact Info) Description 10/13/2021 Transcribe Orders [facility] Phleb Main 30 [place] [address] Mariangel Roblero, WALL WASHER 14 [facility] [address] [place] [phone] [email or web address] Social History Tobacco Use Types [...] Department Care Team (Late Contact Info) Description 12/15/2025 3:00 PM EST Office [facility] 14 [facility] [address] [place] [address] Mariangel Roblero CNP [address] [place] [address] [email or web address] documented as of this encounter [...] documented as of this encounter Care Teams Franchise Consultant Relationship Specialty Start Date End Date Mariangel Roblero CNP [address] [address] [email or web address] PCP - General Internal Medicine 08/02/20 Audra Kenyon NP [address] [place] [address] Historical LMR Provider 09/14/17 Ed Casey DO [address] [place] [address] [facility] [place] [address] [email or web address] Historical LMR Provider 09/14/17 12/02/21 Savana Casiano MD [address] [address] Historical LMR Provider 09/14/17 2 Jeannette Lynn MD [address] [place] [address] [facility], [facility] [place] [address] [email or web address] Historical LMR Provider 09/14/17 documented as of this encounter Additional Source Comments The information contained in this document represents components of the legal health record. It is not the complete legal health record.[facility]
--- OUTSIDE RECORDS SUMMARY | 2025-11-08 21:46 | XMS_ITS | Encounter Summary ---
Author Organization [facility] Address [address] [place] [address] Phone Care Team Providers Care Pipe Line Maintenance Supervisor Name Role Phone Audra Kenyon Kwabena MILITARY TECHNOLOGY SPECIALIST Unavailable Mariangel Roblero CNP Primary Care Provider Encounter Details Date Type Department Care Team (Late Contact Info) Description 01/01/2022 Transcribe Orders Virtual Department 30 [place] [address] Mariangel Roblero CNP 14 [facility] [address] [place] [address] Breast screening (Primary Dx) Social History Tobacco [...] EST Office Visit [facility] 14 [facility] [address] [place], [place] [phone] Mariangel Roblero CNP 14 [facility] [address] [place], [place] [phone] [email or web address] documented as of this encounter Results [...] documented as of this encounter Care Teams Pipe Line Maintenance Supervisor Relationship Specialty Start Date End Date Mariangel Roblero CNP [address] [place] [address] 765 [place] [address] [email or web address] PCP - General Internal Medicine 08/02/20 Audra Kenyon, BECKI [address] [place] [address] Historical LMR Provider 09/14/17 documented as of this encounter Additional Source Comments The information contained in this document represents components of the legal health record. It is not the complete legal health record.[facility]
--- OUTSIDE RECORDS SUMMARY | 2025-11-08 21:46 | XMS_ITS | Encounter Summary ---
Author Organization [facility] Address [address] [facility] [address] [place] [address] Phone Care Team Providers Care Leaf Sucker Operator Name Role Phone Audra Kenyon MAORI LIAISON ADVISER Unavailable Ed Casey DO Unavailable Savana Casiano MD Unavailable [phone] Jeannette Lynn MD Unavailable [phone] Audra Kenyon MAORI LIAISON ADVISER Primary Care Provider Mariangel Roblero LOADER MALT HOUSE Primary Care Provider Encounter Details Date Type Department Care Team (Late st Contact Info) Description 05/21/2018 Ancillary Orders Virtual Department [address] [place] [address] Audra Kenyon, MAORI LIAISON ADVISER [address] [place] [address] Breast screening Social History Tobacco Use Types [...] Description 12/15/2025 3:00 PM EST Office Visit [facility] Internal Medicine 14 [facility] [address] [place] [address] Mariangel Roblero, LOADER MALT HOUSE 14 [facility] [address] [place] [address] [email or web address] documented as of this encounter Results * [...] sensitivity of mammography. POS CDHMAM2 Audra Kenyon NP IMG MG EXAMS Final R esult documented in this encounter Visit Diagnoses Diagnosis Breast screening Breast screening, unspecified Breast screening Breast screening, unspecified documented in this encounter Additional Health Concerns Infection Onset Date Last Indicated Resolved Time CoV-Risk 03/08/2021 03/08/2021 03/08/2021 4:47 PM EDT COVID-19 Comment:Setting expiration date via import due to [facility] policy change to align auto-expiration of infection statuses for patients to apply to employees as of 05/08/2021; contact [facility] with any questions. 03/08/2021 03/08/2021 05/09/2021 1:23 AM E DT CoV-Risk 04/17/2022 04/18/2022 04/29/2022 1:22 AM EDT CoV-Risk 11/07/2023 11/07/2023 11/18/2023 1:22 AM EST COVID-19 07/20/2025 07/20/2025 08/10/2025 1:21 AM EDT documented as of this encounter Care Teams Leaf Sucker Operator Relationship Specialty Start Date End Date Audra Kenyon NP [address] [place] [address] PCP - General Internal Medicine 11/25/17 08/01/20 Mariangel Roblero, LOADER MALT HOUSE [address] [place] [address] [address] [place] [address] [email or web address] PCP - General Internal Medicine 08/02/20 Audra Kenyon MAORI LIAISON ADVISER [address] [place] [address] Historical LMR Provider 09/14/17 Ed Casey DO 4 [facility], [place] [address] [email or web address] Historical LMR Provider 09/14/17 12/02/21 Savana Casiano MD [address] [place] [address] Historical LMR Provider 09/14/17 2 Jeannette Lynn MD [address] [place] [address] [facility], [place] [address] [email or web address] Historical LMR Provider 09/14/17 documented as of this encounter Additional Source Comments The information contained in this document represents components of the legal health record. It is not the complete legal health record.[facility]
--- OUTSIDE RECORDS SUMMARY | 2025-11-08 21:46 | XMS_ITS | Encounter Summary ---
Author Organization [facility] Address [address] [place] [address] Phone Care Team Providers Care Electronic Component Processor Name Role Phone Audra Kenyon Kwabena WEBSITE PROJECT MANAGER Unavailable Mariangel Roblero DYNAMOMETER TUNER Primary Care Provider Encounter Details Date Type Department Care Team (Late st Contact Info) Description 03/31/2024 Transcribe Orders Virtual Department 30 [place] [address] Mariangel Roblero, DYNAMOMETER TUNER 14 [facility] [address] [place] [phone] [email or web address] Breast screening (Primary Dx) Social History Tobacco [...] EST Office Visit [facility] 14 [facility] [address] [place] [address] Mariangel Roblero, DYNAMOMETER TUNER 14 [facility] [address] [place] [address] [email or web address] documented as of this encounter Results * [...] of the results and recommendations. Mariangel Roblero DYNAMOMETER TUNER IMG MG EXAMS Final Result documented in [...] documented as of this encounter Care Teams Electronic Component Processor Relationship Specialty Start Date End Date Mariangel Roblero CNP [address] [place] [address] [address] [place] [address] PCP - General Internal Medicine 08/02/20 Audra Kenyon, BECKI [address] [place] [address] Historical LMR Provider 09/14/17 documented as of this encounter Additional Source Comments The information contained in this document represents components of the legal health record. It is not the complete legal health record.[facility]
--- OUTSIDE RECORDS SUMMARY | 2025-11-08 21:46 | XMS_ITS | Encounter Summary ---
Author Organization [facility] Address [address] [place] [address] [place] [address] Phone Care Team Providers Care Auto Collision Repair Instructor Name Role Phone Audra Kenyon CODING TECHNICIAN Unavailable [phone] Ed Casey DO Unavailable [phone] Savana Casiano MD Unavailable [phone] Jeannette Lynn MD Unavailable Audra Kenyon CODING TECHNICIAN Primary Care Provider Mariangel Roblero REBRANDER Primary Care Provider Encounter Details Date Type Department Care Team (Latest Contact Info) Description 07/15/2018 Ancillary Orders [facility], [address] [address] Emir Dolan MD [address] [place] [address] [email or web address] Osteoarthritis of spine with myelopathy, unspecified spinal [...] EST Office Visit [facility] [place] Internal Medicine 14 [facility] [address] [place] [address] Mariangel Roblero, REBRANDER 14 [facility] [address] [place] [address] [email or web address] documented as of this encounter Results * [...] Comment:Setting expiration date via import due to [facility] policy change to align auto-expiration of infection statuses for patients to apply to employees as of 05/08/2021; contact Occupational Health Services with any questions. 03/08/2021 03/08/2021 05/09/2021 1:23 AM E DT CoV-Risk 04/17/2022 04/18/2022 04/29/2022 1:22 AM EDT CoV-Risk 11/07/2023 11/07/2023 11/18/2023 1:22 AM EST COVID-19 07/20/2025 07/20/2025 08/10/2025 1:21 AM EDT documented as of this encounter Care Teams Auto Collision Repair Instructor Relationship Specialty Start Date End Date Audra Kenyon NP [address] [place] [address] PCP - General Internal Medicine 11/25/17 08/01/20 Mariangel Roblero, MISAEL [address] [place] [address] [address] [place] [address] [email or web address] PCP - General Internal Medicine 08/02/20 Audra Kenyon CODING TECHNICIAN [address] [place] [address] Historical LMR Provider 09/14/17 Ed Casey DO [address] [place] [address] [facility], [place] [address] Historical LMR Provider 09/14/17 12/02/21 Savana Casiano MD [address] [place] [address] Historical LMR Provider 09/14/17 2 Jeannette Lynn MD [address] [place] [address] Orthopedics & Sports [facility], [place] [address] Historical LMR Provider 09/14/17 documented as of this encounter Additional Source Comments The information contained in this document represents components of the legal health record. It is not the complete legal health record.[facility]
--- OUTSIDE RECORDS SUMMARY | 2025-11-08 21:46 | XMS_ITS | Encounter Summary ---
Author Organization [facility] Address 399 [facility] [address] [place] [address] Phone Care Team Providers Care Emergency Room Registered Nurse Name Role Phone Audra Kenyon DISTRIBUTOR SALES CONSULTANT Unavailable Ed Casey DO Unavailable Savana Casiano MD Unavailable [phone] Jeannette Lynn MD Unavailable Audra Kenyon DISTRIBUTOR SALES CONSULTANT Primary Care Provider Mariangel Roblero CHIEF COMMERCIAL OFFICER Primary Care Provider Encounter Details Date Type Department Care Team (Late st Contact Info) Description 08/27/2019 Ancillary Orders Virtual Department [address] [place] [address] Audra Kenyon, DISTRIBUTOR SALES CONSULTANT [address] [place] [address] Breast screening Social History Tobacco Use Types [...] Description 12/15/2025 3:00 PM EST Office Visit [facility] Internal Medicine 14 [facility] [address] [place] [address] Mariangel Roblero, CHIEF COMMERCIAL OFFICER 14 [facility] [address] [place] [address] [email or web address] documented as of this encounter Results * [...] of mammography. POS - CDHMAMA Audra Kenyon DISTRIBUTOR SALES CONSULTANT IMG MG EXAMS Final R esult documented [...] documented as of this encounter Care Teams Emergency Room Registered Nurse Relationship Specialty Start Date End Date Audra Kenyon NP [address] [place] [address] PCP - General Internal Medicine 11/25/17 08/01/20 Mariangel Roblero CNP [address] [place] [address] [email or web address] PCP - General Internal Medicine 08/02/20 Audra Kenyon NP [address] [place] [address] Historical LMR Provider 09/14/17 Ed Casey DO 4 [facility] [place] [place] [address] [email or web address] Historical LMR Provider 09/14/17 12/02/21 Savana Casiano MD [address], [place] [address] Historical LMR Provider 09/14/17 2 Jeannette Lynn MD [address] [place] [address] [facility] [place] [address] [email or web address] Historical LMR Provider 09/14/17 documented as of this encounter Additional Source Comments The information contained in this document represents components of the legal health record. It is not the complete legal health record.[facility]
--- OUTSIDE RECORDS SUMMARY | 2025-11-08 21:46 | XMS_ITS | Encounter Summary ---
Author Organization [facility] Address 399 [facility] [address] [place] [address] Phone Care Team Providers Care Geospatial Intelligence Analyst Name Role Phone Maynorbeatrice Audra Kwabena CHUTE OPERATOR Unavailable Ed Casey DO Unavailable aSvana Casiano MD Unavailable [phone] Jeannette Lynn MD Unavailable Mariangel Roblero ORACLE DEVELOPER Primary Care Provider Encounter Details Date Type Department Care Team (Late st Contact Info) Description 01/04/2021 Ancillary Orders Virtual Department 30 [place] [address] Mariangel Roblero, ORACLE DEVELOPER [address] [phone] [email or web address] Breast screening Social History Tobacco Use Types [...] 3:00 PM EST Office Visit [facility] Internal Medicine 14 [facility] [address] [place] [address] Mariangel Roblero CNP 14 [facility] [address] [place] [address] documented as of this encounter Results * [...] could obscurea lesion on mammography. Mariangel Roblero ORACLE DEVELOPER IMG MG EXAMS Final Result documented in [...] documented as of this encounter Care Teams Geospatial Intelligence Analyst Relationship Specialty Start Date End Date Mariangel Roblero CNP [address] [place] [address] [address] [place] [address] [email or web address] PCP - General Internal Medicine 08/02/20 Audra Kenyon NP [address] [place] [address] Historical LMR Provider 09/14/17 Ed Casey DO [address] [place] [address] [facility] [place] [address] Historical LMR Provider 09/14/17 12/02/21 Savana Casiano MD [address] [place] [address] Historical LMR Provider 09/14/17 2 Jeannette Lynn MD [address] [place] [address] Orthoped[facility], [facility] [place] [address] [email or web address] Historical LMR Provider 09/14/17 documented as of this encounter Additional Source Comments The information contained in this document represents components of the legal health record. It is not the complete legal health record.[facility]
--- OUTSIDE RECORDS SUMMARY | 2025-11-08 21:46 | XMS_ITS | Encounter Summary ---
Author Organization [facility] Address [address] [place] [address] Phone Care Team Providers Care Camp Head Counselor Name Role Phone Maynorbeatrice Audra Kwabena REPAIRING CALIBRATOR Unavailable [phone] Mariangel Roblero CNP Primary Care Provider Encounter Details Date Type Department Care Team (Late st Contact Info) Description 10/06/2025 Orders Only [facility] Medicine [address] [place] [address] Flori Chua PA-C [address] [place] [address] [email or web address] Social History Tobacco Use Types Packs/Day Years [...] Description 12/15/2025 3:00 PM EST Office Visit [facility] [place] Internal [facility] 14 [facility] [address] [place], [place] [phone] Mariangel Roblero, GRAIN MANAGER 14 [facility] [address] [place] [address] documented as of this encounter Procedures Procedure Name Priority Date/Time Associated Diagnosis Comments IRON AND IRON BINDING CAPACITY Routine 09/14/2025 9:57 AM EDT CBC AND DIFFERENTIAL Routine 09/14/2025 9:57 AM EDT FERRITIN Routine 09/14/2025 9:57 AM EDT documented in this encounter Results * CBC and Differential (09/14/2025 9:57 AM EDT) Blood (Blood) us Flori Chua PA-C LAB BLOOD BKR ORDERABLES Fi nal Result * Ferritin (09/14/2025 9:57 AM EDT) Blood (Blood) us Flori Chua PA-C LAB BLOOD BKR ORDERABLES Fi nal Result * Iron and Total Iron Binding Capacity (Iron/TIBC) (09/14/2025 9:57 AM EDT) Blood (Blood) us Flori Chua PA-C LAB BLOOD BKR ORDERABLES Fi nal Result documented in this encounter Visit Diagnoses Not on filedocumented in this encounter Additional Health Concerns Assessment Noted Time PHQ-2 Depression Total Score: 1 09/16/20 24 9:14 AM EDT documented as of this encounter Care Teams Camp [place] Counselor Relationship Specialty Start Date End Date Mariangel Roblero CNP [address] [place] [address] [address] [place] [address] [email or web address] PCP - General Internal Medicine 08/02/20 Audra Kenyon, BECKI [address] [place] [address] Historical LMR Provider 09/14/17 documented as of this encounter Additional Source Comments The information contained in this document represents components of the legal health record. It is not the complete legal health record.[facility]
--- OUTSIDE RECORDS SUMMARY | 2025-11-08 21:46 | XMS_ITS | Encounter Summary ---
Author Organization [facility] Address [address] [place] [address] Phone Care Team Providers Care Stone Trimmer Name Role Phone Chantale Audra Kwabena GLAZE WIPER Unavailable Ed Casey DO Unavailable [phone] Savana Casiano MD Unavailable [phone] Jeannette Lynn MD Unavailable Mariangel Roblero THERAPY SITE COORDINATOR Primary Care Provider Encounter Details Date Type Department Care Team (Late st Contact Info) Description 01/04/2021 Procedure Pass [facility], [address] [address] Social History Tobacco Use Types Packs/Day Years [...] Description 12/15/2025 3:00 PM EST Office Visit [facility] Internal Medicine 14 [facility] [address] [place], [place] [phone] Mariangel Roblero, MISAEL 14 [facility] [address] [place], [place] [phone] documented as of this encounter Visit Diagnoses Not on filedocumented in this encounter Additional Health Concerns Infection Onset Date Last Indicated Resolved Time CoV-Risk 03/08/2021 03/08/2021 03/08/2021 4:47 PM EDT COVID-19 Comment:Setting expiration date via import due to [facility] policy change to align auto-expiration of infection statuses for patients to apply to employees as of 05/08/2021; contact Occupational Health Services with any questions. 03/08/2021 03/08/2021 05/09/2021 1:23 AM E DT CoV-Risk 04/17/2022 04/18/2022 04/29/2022 1:22 AM EDT CoV-Risk 11/07/2023 11/07/2023 11/18/2023 1:22 AM EST COVID-19 07/20/2025 07/20/2025 08/10/2025 1:21 AM EDT documented as of this encounter Care Teams Stone Trimmer Relationship Specialty Start Date End Date Mariangel Roblero CNP [address] [place] [address] [email or web address] PCP - General Internal Medicine 08/02/20 Audra Kenyon NP [address] [place] [address] Historical LMR Provider 09/14/17 Ed Casey DO [address] [place] [address] Orthopedics & Sports Medicine, [facility] [place] [address] [email or web address] Historical LMR Provider 09/14/17 12/02/21 Savana Casiano MD [address] [place] [address] Historical LMR Provider 09/14/17 2 Jeannette Lynn MD [address] [place] [address] [facility], [place] [address] [email or web address] Historical LMR Provider 09/14/17 documented as of this encounter Additional Source Comments The information contained in this document represents components of the legal health record. It is not the complete legal health record.[facility]
--- OUTSIDE RECORDS SUMMARY | 2025-11-08 21:46 | XMS_ITS | Encounter Summary ---
Author Organization [facility] Address [address] [place] [address] Phone Care Team Providers Care Private Household Worker Name Role Phone Audra Kenyon Kwabena DISTRIBUTION ACCOUNTING CLERK Unavailable Mariangel Roblero CNP Primary Care Provider Encounter Details Date Type Department Care Team (Latest Contact Info) Description 09/25/2022 Transcribe Orders Virtual Department 30 [place] [address] Flori Chua PA 10 [place] [address] Elevated LFTs (Primary Dx) Social History Tobacco [...] 12/15/2025 3:00 PM EST Office Visit [facility] [place] Internal Medicine 14 [facility] [address] [place], [place] [phone] Mariangel Roblero CNP 14 [facility] [address] [place], [place] [phone] documented as of this encounter Results * [...] documented as of this encounter Care Teams Private Household Worker Relationship Specialty Start Date End Date Mariangel Roblero CNP [address] [place] [address] [address] [place] [address] [email or web address] PCP - General Internal Medicine 08/02/20 Audra Kenyon NP [address] [place] [address] Historical LMR Provider 09/14/17 documented as of this encounter Additional Source Comments The information contained in this document represents components of the legal health record. It is not the complete legal health record.[facility]
--- OUTSIDE RECORDS SUMMARY | 2025-11-08 21:46 | XMS_ITS | Encounter Summary ---
Author Organization [facility] Address [address] [place] [address] Phone Care Team Providers Care Tectonophysicist Name Role Phone Audra Kenyon NP Unavailable Ed Casey DO Unavailable [phone] Savana Casiano MD Unavailable [phone] Jeannette Lynn MD Unavailable Mariangel Roblero CNP Primary Care Provider Encounter Details Date Type Department Care Team (Late st Contact Info) Description 11/11/2020 Procedure Pass [facility], [address] [address] Social History Tobacco Use Types Packs/Day Years [...] 12/15/2025 3:00 PM EST Office Visit [facility] [place] Internal Medicine 14 [facility] [address] [place] [address] Mariangel Roblero CNP 14 [facility] [address] [place] [address] [email or web address] documented as of this encounter Visit Diagnoses Not on filedocumented in this encounter Additional Health Concerns Infection Onset Date Last Indicated Resolved Time CoV-Risk 03/08/2021 03/08/2021 03/08/2021 4:47 PM EDT COVID-19 Comment:Setting expiration date via import due to [facility] policy change to align auto-expiration of infection statuses for patients to apply to employees as of 05/08/2021; contact Occupational Health Services with any questions. 03/08/2021 03/08/2021 05/09/2021 1:23 AM E DT CoV-Risk 04/17/2022 04/18/2022 04/29/2022 1:22 AM EDT CoV-Risk 11/07/2023 11/07/2023 11/18/2023 1:22 AM EST COVID-19 07/20/2025 07/20/2025 08/10/2025 1:21 AM EDT documented as of this encounter Care Teams Tectonophysicist Relationship Specialty Start Date End Date Mariangel Roblero CNP [address] [address] [email or web address] PCP - General Internal Medicine 08/02/20 Audra Kenyon NP [address] [place] [address] Historical LMR Provider 09/14/17 Ed Casey DO [address] [place] [address] [facility] [place] [address] Historical LMR Provider 09/14/17 12/02/21 Savana Casiano MD [address] [place] [address] Historical LMR Provider 09/14/17 2 Jeannette Lynn MD [address] [place] [address] [facility], [place] [address] [email or web address] Historical LMR Provider 09/14/17 documented as of this encounter Additional Source Comments The information contained in this document represents components of the legal health record. It is not the complete legal health record.[facility]
--- OUTSIDE RECORDS SUMMARY | 2025-11-08 21:46 | XMS_ITS | Encounter Summary ---
Author Organization [facility] Address [address] [place] [address] Phone Care Team Providers Care Complaint Specialist Name Role Phone Audra Kenyon Kwabena COMPACTING MACHINE OPERATOR/TENDER Unavailable Mariangel Roblero CNP Primary Care Provider Encounter Details Date Type Department Care Team (Late Contact Info) Description 02/27/2023 Transcribe Orders Virtual Department 30 [place] [address] Mariangel Roblero CNP 14 [facility] [address] [place] [address] Breast screening (Primary Dx) Social History Tobacco [...] EST Office Visit [facility] Internal Medicine 14 [facility] [address] [place], [place] [phone] Mariangel Roblero CNP 14 [facility] [address] [place], [place] [phone] [email or web address] documented as of this encounter Results * [...] Months Recommendation: Left Mammography Screening Mariangel Roblero SALES REPRESENTATIVE [employer] IMG MG EXAMS Final Result documented in [...] documented as of this encounter Care Teams Complaint Specialist Relationship Specialty Start Date End Date Mariangel Roblero CNP [address] [place] [address] [address] [place] [address] PCP - General Internal Medicine 08/02/20 Aurda Kenyon, COMPACTING MACHINE OPERATOR/TENDER [address] [place] [address] Historical LMR Provider 09/14/17 documented as of this encounter Additional Source Comments The information contained in this document represents components of the legal health record. It is not the complete legal health record.[facility]
--- OUTSIDE RECORDS SUMMARY | 2025-11-08 21:46 | XMS_ITS | Encounter Summary ---
Author Organization [facility] Address [address] [place] [address] Phone Care Team Providers Care Car Knocker Name Role Phone Audra Kenyon HOOKER LASTER Unavailable Mariangel Roblero CNP Primary Care Provider Encounter Details Date Type Department Care Team (Late st Contact Info) Description 03/17/2025 Procedure Pass [facility], [address] [address] Social History Tobacco Use Types Packs/Day Years [...] Description 12/15/2025 3:00 PM EST Office Visit [facility] Internal Medicine 14 [facility] [address] [place] [address] Mariangel Roblero CNP 14 [facility] [address] [place] [address] documented as of this encounter Visit Diagnoses Not on filedocumented in this encounter Additional Health Concerns Infection Onset Date Last Indicated Resolved Time COVID-19 07/20/2025 07/20/2025 08/10/2025 1:21 AM EDT Assessment Noted Time PHQ-2 Depression Total Score: 1 09/16/20 24 9:14 AM EDT documented as of this encounter Care Teams Car Knocker Relationship Specialty Start Date End Date Mariangel Roblero, MISAEL [address] [address] PCP - General Internal Medicine 08/02/20 Audra Kenyon, BECKI [address] [place] [address] Historical LMR Provider 09/14/17 documented as of this encounter Additional Source Comments The information contained in this document represents components of the legal health record. It is not the complete legal health record.[facility]
--- OUTSIDE RECORDS SUMMARY | 2025-11-08 21:46 | XMS_ITS | Encounter Summary ---
Author Organization [facility] Address [address] [facility] [address] [place] [address] Phone Care Team Providers Care Pressfitter Name Role Phone Maynorbeatrice Audra Kwabena GEAR ROLLER Unavailable [phone] Ed Casey DO Unavailable [phone] Savana Casiano MD Unavailable [phone] Jeannette Lynn MD Unavailable Mariangel Roblero MANAGER INVENTORY MANAGEMENT Primary Care Provider Encounter Details Date Type Department Care Team (Late st Contact Info) Description 01/04/2021 Ancillary Orders [facility] Internal Medicine [address] [phone] Mariangel Roblero, MANAGER INVENTORY MANAGEMENT [address] [facility] [address] [place] [phone] [email or web address] Social History Tobacco Use Types Packs/Day Years [...] Description 12/15/2025 3:00 PM EST Office Visit [facility] Internal Medicine 14 [facility] [address] [place] [address] Mariangel Roblero CNP [address] [place] [address] [place] [address] [email or web address] documented as of this encounter Visit Diagnoses Not on filedocumented in this encounter Additional Health Concerns Infection Onset Date Last Indicated Resolved Time CoV-Risk 03/08/2021 03/08/2021 03/08/2021 4:47 PM EDT COVID-19 Comment:Setting expiration date via import due to [facility] policy change to align auto-expiration of infection statuses for patients to apply to employees as of 05/08/2021; contact Occupational Health Services with any questions. 03/08/2021 03/08/2021 05/09/2021 1:23 AM E DT CoV-Risk 04/17/2022 04/18/2022 04/29/2022 1:22 AM EDT CoV-Risk 11/07/2023 11/07/2023 11/18/2023 1:22 AM EST COVID-19 07/20/2025 07/20/2025 08/10/2025 1:21 AM EDT documented as of this encounter Care Teams Pressfitter Relationship Specialty Start Date End Date Mariangel Roblero CNP [address] [address] [email or web address] PCP - General Internal Medicine 08/02/20 Audra Kenyon NP [address] [place] [address] Historical LMR Provider 09/14/17 Ed Casye DO [address] [place] [address] [facility] [place] [address] [email or web address] Historical LMR Provider 09/14/17 12/02/21 Savana Casiano MD [address] [place] [address] Historical LMR Provider 09/14/17 2 Jeannette Lynn MD [address] [place] [address] [facility], [place] [address] [email or web address] Historical LMR Provider 09/14/17 documented as of this encounter Additional Source Comments The information contained in this document represents components of the legal health record. It is not the complete legal health record.[facility]
--- OUTSIDE RECORDS SUMMARY | 2025-11-08 21:46 | XMS_ITS | Encounter Summary ---
Author Organization [facility] Address [address] [place] [address] Phone Care Team Providers Care Statistical Developer Name Role Phone Maynorbeatrice Audra Yuan SMALL BUSINESS DIRECTOR Unavailable [phone] Mariangel Roblero CNP Primary Care Provider Encounter Details Date Type Department Care Team (Late st Contact Info) Description 03/31/2024 Procedure Pass [facility], [address] [address] Social History Tobacco Use Types Packs/Day Years [...] 12/15/2025 3:00 PM EST Office Visit [facility] Internal Medicine 14 [facility] [address] [place] [address] Mariangel Roblero CNP 14 [facility] [address] [place] [address] [email or web address] documented as of this encounter Visit Diagnoses Not on filedocumented in this encounter Additional Health Concerns Infection Onset Date Last Indicated Resolved Time COVID-19 07/20/2025 07/20/2025 08/10/2025 1:21 AM EDT Assessment Noted Time PHQ-2 Depression Total Score: 0 09/04/20 23 11:17 AM EDT documented as of this encounter Care Teams Statistical Developer Relationship Specialty Start Date End Date Mariangel Roblero CNP 14 [facility] [address] [place] [address] [email or web address] PCP - General Internal Medicine 08/02/20 Audra Kenyon NP [address] [place] [address] Historical LMR Provider 09/14/17 documented as of this encounter Additional Source Comments The information contained in this document represents components of the legal health record. It is not the complete legal health record.[facility]
--- OUTSIDE RECORDS SUMMARY | 2025-11-08 21:46 | XMS_ITS | Encounter Summary ---
Author Organization [facility] Address [address] [place] [address] Phone Care Team Providers Care Javascript Engineer Name Role Phone Audra Kenyon Kwabena LABOR CUSTODIAN Unavailable [phone] Mariangel Roblero CNP Primary Care Provider Encounter Details Date Type Department Care Team (Late st Contact Info) Description 01/01/2022 Procedure Pass [facility] [place], [address] [address] Social History Tobacco Use Types Packs/Day Years [...] Description 12/15/2025 3:00 PM EST Office Visit [facility] Internal Medicine 14 [facility] [address] [place], [place] [phone] Mariangel Roblero, MISAEL 14 [facility] [address] [place], [place] [id number] documented as of this encounter Visit Diagnoses Not on filedocumented in this encounter Additional Health Concerns Infection Onset Date Last Indicated Resolved Time CoV-Risk 04/17/2022 04/18/2022 04/29/2022 1:22 AM EDT CoV-Risk 11/07/2023 11/07/2023 11/18/2023 1:22 AM EST COVID-19 07/20/2025 07/20/2025 08/10/2025 1:21 AM EDT Assessment Noted Time PHQ-2 Depression Total Score: 2 08/29/20 11:11 AM EDT documented as of this encounter Care Teams Javascript Engineer Relationship Specialty Start Date End Date Mariangel Roblero CNP [address] [place] [address] [address] [place] [address] [email or web address] PCP - General Internal Medicine 08/02/20 Audra Kenyon, LABOR CUSTODIAN [address] [place] [address] Historical LMR Provider 09/14/17 documented as of this encounter Additional Source Comments The information contained in this document represents components of the legal health record. It is not the complete legal health record.[facility]
--- OUTSIDE RECORDS SUMMARY | 2025-11-08 21:46 | XMS_ITS | Clinical Summary ---
Author Organization [facility] Address [address] [place] [address] Phone Care Team Providers Care Shactor Helper Name Role Phone Audra Kenyon CASINO PORTER Unavailable [phone] Nettie Delarosa SEAM FINISHER Primary Care Provider Allergies Active Allergy Reactions Criticality Noted Date Comments Amoxicillin Unknown 06/03/2017 Egg Derived 11/25/2017 Egg/Pro Nutra/Shake Unknown 06/03/2017 Etodolac Other (See Comments) Low 10/13/2021 Elevated liver enzymes Monosodium Glutamate Unknown 06/03/2017 Penicillin Unknown 06/03/2017 Medications aspirin-acetamin ophen-caffeine (EXCEDRIN MIGRAINE) 250-250-65 mg per tablet Take 2 tablets by mouth daily. And as needed Active oxyCODONE 5 MG immediate release tabletIndication [...] or as directed by MD 30 patch 03/16/20 25 Active losartan (COZAAR) 100 MG tabletIndication s:Essential hypertension TAKE ONE TABLET BY MOUTH EVERY DAY 90 tablet 3 05/03/20 25 Active LORazepam (ATIVAN) 0.5 MG tabletIndication s:Grief Take 1 tablet (0.5 mg total) by mouth every 8 (eight) hours as needed for anxiety. 15 tablet 09/29/20 25 Active amLODIPine (NORVASC) 2.5 MG tabletIndication s:Essential hypertension TAKE ONE TABLET BY MOUTH EVERY DAY 90 tablet 3 10/14/20 25 Active clobetasol (TEMOVATE) 0.05 % cream As needed 08/09/20 23 025 Discontinued(No longer taking) fluocinonide 0.05 % external solution As needed 08/09/20 23 025 Discontinued(No longer taking) neomycin-polymyx in B-dexAMETHasone (MAXITROL) 3.5 mg/g-10,000 unit/g-0.1 % Oint 08/20/20 025 Discontinued(No longer taking) amLODIPine (NORVASC) 2.5 MG tabletIndication s:Essential hypertension Take 1 tablet (2.5 mg total) by mouth daily. 30 tablet 09/14/20 25 025 Discontinued Active Problems Problem Noted Date Diagnosed Date Grief 09/30/2025 Assessment & Plan (09/30/2025 12:25 PM EST): Patient struggling with the grief of the loss of her earlier this year. She is struggling with feeling overwhelmed by all the things she needs to take care of with her house that her always did for them. She is not sleeping well at night. We discussed a short supply of lorazepam to use for sleep/anxiety. We discussed use of benzodiazepines, which are to be used for short periods of time as risks associated with penitentiary use. Patient instructed on use, side effects, and adverse effects. We also discussed grief counseling, although patient feels that she has good support in her family. F/u in 2-3 weeks. Preop examination 08/27/2025 Assessment & Plan (10/26/2025 12:31 PM EST): Generally well female. Relatively safe and low risk for complications related to surgery and local anesthesia. Will fax paperwork to Dr. Mckeon. Assessment & Plan (08/27/2025 3:48 PM EDT): [...] [facility] Assessment & Plan (09/16/2024 9:44 AM [...] colonoscopy, patient has been in touch with [facility] regarding this. Up-to-date on mammogram and [...] months. The 10-year ASCVD risk score (Dayami BEKAH Jr., et al., 2013) is: 9.7% Values used to calculate the score: Age: 66 years Sex: Female Is Non- : No Diabetic: No Tobacco smoker: No Systolic Blood Pressure: 138 mmHg Is BP treated: Yes HDL Cholesterol: 57 mg/dL Total Cholesterol: 213 mg/dL History of COVID-19 05/16/2021 Assessment & Plan (05/16/2021 11:38 AM EDT): Resolved. 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 Encouraged patient to also reach out to [...] abuse or diversion. Will place referral to [facility] to discuss non-surgical/non-pharmacologic treatment options. [...] acupuncture treatments. Follow up with Dr. Padilla, quality review specialist at [facility] scheduled. Continue Excedrin and Tylenol, [...] injections. Follow up appointment with Dr. Padilla, quality review specialist at [facility] scheduled. Continue Excedrin and Tylenol, occasional Oxycodone which she takes sparingly without evidence of abuse or diversion. Controlled substance agreement up to date. Follow-up in 4 months for reevaluation. Assessment & Plan (01/06/2022 12:05 PM EST): Ongoing issues with neck pain, despite cortisone injections. She is being followed closely by physiatry at [facility]. The next plan is [...] reevaluation. Essential hypertension 07/29/2020 Assessment & Plan (10/26/2025 12:31 PM EST): Patient's blood pressure improved in office today and normotensive readings at home. Continue losartan 100 mg daily and amlodipine 2.5 mg daily. F/u in 6 weeks, at time of annual wellness exam. Patient cleared to schedule her blepharoplasty as previously planned. Patient verbalizes understanding and in agreement with plan. Assessment & Plan (09/30/2025 12:23 PM EST): Patient continues to have elevated blood pressures, although patient does feel that this is highly influenced by her stress. We will continue her current regimen of amlodipine and losartan and f/u closely in 2-3 weeks. If persistently elevated, will increase amlodipine. Monitor at home, BP cuff calibrated in office today. Patient verbalizes understanding and in agreement with plan. Assessment & Plan (09/14/2025 12:13 PM EDT): Borderline elevated blood pressure in office today, with highly elevated reading at time of surgery last week so that it ended up being cancelled. Will start amlodipine 2.5 mg daily. Patient instructed on use, side effects, and adverse effects. Will f/u in 2 weeks and likely clear her for surgery if blood pressure improved at that time. We discussed stress reduction techniques, such as meditation, regular exercise, and good socialization with friends/family. Patient verbalizes understanding and in agreement with plan. Assessment & Plan (08/31/2025 9:07 AM EDT): [...] EDT): Stable, with regular therapeutic phlebotomy at [facility]. Continue follow-up with Dr. Foreman as scheduled. Assessment & Plan (03/16/2025 10:07 AM EDT): Stable, with regular therapeutic phlebotomy at [facility]. Continue follow-up with Dr. Foreman as scheduled. Assessment & Plan (09/16/2024 9:42 AM EDT): Stable, with regular therapeutic phlebotomy at [facility]. Continue follow-up with Dr. Foreman as scheduled. Assessment & Plan (06/30/2024 9:53 AM EDT): Stable, with regular therapeutic phlebotomy at [facility]. Continue follow-up with Dr. Foreman as scheduled. Assessment & Plan (09/04/2023 12:06 PM EDT): Stable, with regular therapeutic phlebotomy at [facility]. Continue follow-up with Dr. Foreman as scheduled. Assessment & Plan (08/31/2022 11:24 AM EDT): Stable, with regular therapeutic phlebotomy at [facility]. Continue follow-up with Dr. Foreman as scheduled. Assessment & Plan (08/29/2021 12:26 PM EDT): Stable, with regular therapeutic phlebotomy at [facility]. Continue follow-up with Dr. Foreman as scheduled. Assessment & Plan (07/29/2020 7:06 PM EDT): Stable, with regular therapeutic phlebotomy at [facility]. Continue follow-up with Dr. Rudolph of GI as scheduled. Osteoarthritis, multiple sites 07/29/2020 Assessment [...] with sleep. Follow-up with BECKI Panda at [facility] for management of bilateral hand [...] painful joints. Follow-up with Dr. Padilla at [facility] as needed. Neurodermatitis 07/29/2020 Assessment [...] Encounters Date Type Department Care Team Description 10/26/2025 11:40 AM EST Office Visit [facility] Internal Medicine 14 [facility] [address] [place] [address] Nettie Delarosa CNP Essential hypertension (Primary Dx); Preop examination 10/14/2025 Refill [facility] Internal Medicine [address] [address] Nettie Delarosa CNP Medication Refill (Amlodipine) 10/06/2025 Orders Only [address] [place] [address] Flori Chua PA-C 09/29/2025 4:40 PM EST Office Visit [facility] Internal Medicine [address] [address] Nettie Delarosa CNP Grief (Primary Dx); Essential hypertension 09/14/2025 11:40 AM EDT Office Visit [facility] Internal Medicine [address] [address] Nettie Delarosa CNP Essential hypertension (Primary Dx) 09/07/2025 Telephone [facility] Internal Medicine [address] [address] Skylar Myers [place] Eye surgery cancelled 08/31/2025 9:00 AM EDT Nurse Only [facility] Internal [facility] [address] [address] Nettie Delarosa CNP Preop examination (Primary Dx) 08/27/2025 3:20 PM EDT Office Visit [facility] Internal Medicine [address] [place] [address] Nettie Delarosa CNP Ptosis of eyelid, bilateral (Primary Dx); Preop examination; Essential hypertension; Primary osteoarthritis involving multiple joints; Hereditary hemochromatosis; Neurodermatitis 08/09/2025 Telephone [facility] [place] [facility] [address] [place] [address] [address] [place] [address] Nettie Delarosa CNP Pre-op ([facility], 09/07/25, upper eye lid blepharoplasty/) from Last 3 Months Immunizations Immunization Administration [...] Sign Reading Time Taken Comments Blood Pressure 136/84 10/26/2025 11:40 AM EST Pulse 62 10/26/2025 11:40 AM EST Temperature 36.4 C (97.6 F) 10/26/2025 11:40 AM EST Respiratory Rate 16 07/22/2025 8:57 AM EDT Oxygen Saturation 99% 10/26/2025 11: 40 AM EST Inhaled Oxygen Concentration - - Weight 63.4 kg (139 lb 12.8 oz) 025 11:40 AM EST Height 154.9 cm (5' 1 ) 03/24/2025 8:35 AM EDT Body Mass Index 26.41 03/24/2025 8:35 AM EDT Plan of Treatment Upcoming Encounters Date Type Department Care Team (Late st Contact Info) Description 12/15/2025 3:00 PM EST Office Visit [facility] [place] [facility] [address] [address] Nettie Delarosa, MISAEL 14 [facility] [address] [place] [address] [email or web address] Health Maintenance Due Date Last Done Comments COLOGUARD 02/24/2000 FIT TEST 02/24/2000 FOBT 02/24/2000 SIGMOIDOSCOPY 02/24/2000 VIRTUAL COLONOSCOPY 02/24/2000 ZOSTER VACCINES (2 of 3) 05/04/2016 03/09/2016 INFLUENZA VACCINE (#1) 2025 4, 09/11/2022, 09/21/2020, Additional history exists COLONOSCOPY 07/18/2025 07/18/2015 COLORECTAL CANCER SCREENING 07/18/2025 COVID-19 VACCINE ( season) 2025 08/18/2024, 10/01/2023, 04/14/2023, Additional history exists DEPRESSION SCREENING 09/16/2025 09/16/2024 CREATININE LEVEL 04/09/2026 04/09/2025, , 06/26/2023, Additional history exists POTASSIUM LEVEL 04/09/2026 04/09/2025, 08/25, 06/26/2023, Additional history exists BLOOD PRESSURE 04/26/2026 10/26/2025 MAMMOGRAM 07/08/2026 07/08/2024, 02/24, 01/24/2022, Additional history exists RSV VACCINE (1 - 1-dose 75+ series) 2030 LIPID PANEL 04/09/2030 04/09/2025, 08/25, 07/24/2022, Additional history exists Adult Td,Tdap Booster 10/29/2034 10/29/2024 , 05/11/2014, 12/01/1999 PNEUMOCOCCAL VACCINES (50+ years) Completed 08/31/2022, 08/29/2021 HEPATITIS C SCREENING Completed 04/09/2025 , 01/03/2023, 08/22/2021 OSTEOPOROSIS SCREENING INITIAL (ONE-TIME) Completed 06/25/2025, 11/26/2015 SMOKING STATUS SCREENING (Once After 26 Yrs) Completed 10/26/2025 HEPATITIS A VACCINES Aged Out No long [...] Procedure Name Priority Date/Time Associated Diagnosis Comments CBC AND DIFFERENTIAL Routine 09/14/2025 9:57 AM EDT FERRITIN Routine 09/14/2025 9:57 AM EDT IRON AND IRON BINDING CAPACITY Routine 09/14/2025 9:57 AM EDT ECG 12-LEAD Routine 08/31/2025 9:06 AM EDT Preop examination BD DXA AXIAL (SPINE) WITH HIP Routine 06/25/2025 1:43 PM EDT Encounter for annual wellness exam in Medicare patient LIPID PANEL Routine 04/09/2025 1:42 PM EDT Mixed hyperlipidemia LIVER FIBROSIS TEST Routine 04/09/2025 1 :42 PM EDT Mixed hyperlipidemia FH: GI cancer COMPREHENSIVE METABOLIC PANEL (CMP) Routine 04/09/2025 1:42 PM EDT Mixed hyperlipidemia FH: GI cancer BI MAMMOGRAM SCREENING WITH TOMOSYNTHESIS WITH CAD (BILATERAL) Routine 07/08/2024 11:59 AM EDT Breast screening COLONOSCOPY FOR RESULT ENTRY ONLY Routine 07/18/2015 from Last 3 Months or Most Recently Relevant to Health Maintenance Results * Iron and Total Iron Binding Capacity (Iron/TIBC) (09/14/2025 9:57 AM EDT) Blood (Blood) Flori Chua PA-C LAB BLOOD BKR ORDERABLES Fi nal Result * CBC and Differential (09/14/2025 9:57 AM EDT) Blood (Blood) Flori BLAKE-Schuyler LAB BLOOD BKR ORDERABLES Fi nal Result * Ferritin (09/14/2025 9:57 AM EDT) Blood (Blood) Flori BLAKE-Schuyler LAB BLOOD BKR ORDERABLES Fi nal Result * ECG 12-LEAD (08/31/2025 9:06 AM EDT) Narrative EXTERNAL NON-INTERFACED REF LAB - 08/31/2025 9:06 AM EDT Type of EKG: Standard. Global (41772). Notes NSR without ectopy or ST/T wave changes. No previous EKGs on file Nettie Delarosa SEAM FINISHER ECG ORDERABLES Final Result EXTERNAL NON-INTERFACED REF LAB * BD DXA AXIAL (SPINE) WITH HIP (06/25/2025 1:43 PM EDT) Anatomical Region Laterality Modality Bone Density Bone Density 06/25/2025 1:42 PM EDT Impressions 06/28/2025 5:18 PM EDT Interpretation: Normal bone mineral density. Narrative 06/28/2025 5:18 PM EDT Referred By: NETTIE DELAROSA Indications: Postmenopausal Scanner: Vaunte A with serial# of [id number] located at [facility] Bone Density Scan (DXA) 06/25/25 [...] -2.5), or Osteoporosis (T-score <= -2.5). At [facility], T-scores are compared to peak bone density [...] Referred By: NETTIE DELAROSA Indications: Postmenopausal Scanner: Vaunte A with serial# of [id number] located at [facility] Bone Density Scan (DXA) 06/25/25 Details [...] -2.5), or Osteoporosis (T-score <= -2.5). At [facility], T-scores are compared to peak bone density [...] results. IMPRESSION: Interpretation: Normal bone mineral density. us Nettie Delarosa SEAM FINISHER IMG BD BONE DENSITY DE XA Final Result * Liver fibrosis test (04/09/2025 1:42 PM EDT) Fibrosis score 0.07 [facility] Interpretation (Fibrosis) SEE NOTE [facility] Comment: (NOTE) no fibrosis Fibro Test Score [...] HCV Fibrosis Grade F0 Q [facility] NECROINFLAMM SCORE 0.03 Q [facility] NECROINFLAMM GRADE A0 Q [facility] NECROINFLAMM INTERP SEE NOTE [facility] Comment: (NOTE) no activity ActiTest Score (a) [...] A2 Macroglobulin 142 106 - 279 mg/dL [facility] Haptoglobin 142 43 - 212 mg/dL [facility] Apolipoprotein A1 179 101 - 198 mg/dL [facility] TOTAL BILIRUBIN 0.4 0.2 - 1.2 mg/dL [facility] GGT 17 3 - 65 U/L [facility] ALT 13 6 - 29 U/L [facility] Specimen/Product ID [id number] [facility] Comments (Chemistry) SEE NOTE [facility] Comment: (NOTE) The reliability of results is dependent on compliance with the preanalytical and analytical conditions recommended by [employer]. The tests have to be deferred for: [...] The performance characteristics have been determined by [facility]. It has not been cleared or approved by the U.S. Food and Drug Administration. Performance characteristics refer to the analytical performance of the test. [employer], the associated logo, Petersongualberto Irwin and all associated infibond Diagnostics foreman are the registered trademarks of [employer]. All third democrat foreman - (R) and (TM) - are the property of their respective owners. (C) [id number] [employer]. All rights reserved. Blood 04/09/2025 1:42 PM EDT 04/09/2025 1:44 PM EDT us Flori BLAKE LAB BLOOD BKR ORDERABLES Fi nal Result [facility] [address] [facility] [address] [place] [address], [facility] [phone] * (ABNORMAL) Comprehensive metabolic panel (04/09/2025 1:42 PM EDT) SODIUM 134 133 - 146 mmol/L [facility] POTASSIUM 4.4 3.3 - 5.1 mmol/L [facility] CHLORIDE 98 96 - 108 mmol/L [facility] CO2 26 21 - 35 mmol/L [facility] BUN 16 6 - 19 mg/dL [facility] CREATININE 0.90 0.5 - 1.5 mg/dL [facility] GLUCOSE 111(H) 70 - 99 mg/dL [facility] ALBUMIN 4.3 3.9 - 4.8 g/dL [facility] TOTAL PROTEIN 7.0 6.5 - 8.0 g/dL [facility] CALCIUM 8.9 8.4 - 10.3 mg/dL [facility] ALKALINE PHOSPHATASE 79 39 - 117 U/L [facility] TOTAL BILIRUBIN 0.3 0.0 - 1.2 mg/dL [facility] AST 22 0 - 37 U/L [facility] ALT 11 0 - 40 U/L [facility] GLOBULIN 2.7 1 - 4.8 g/dL [facility] EGFR 69 >59 mL/min/1.7 3m2 [facility] Comment:Estimated glomerular filtration rate calculated using the CKD-EPI refit equation. ANION GAP 14 10 - 20 mmol/L [facility] Blood 04/09/2025 1:42 PM EDT 04/09/2025 1:44 PM EDT Flori BLAKE LAB BLOOD BKR ORDERABLES Fi nal Result Performing Organization Address [facility] Co de Phone Number [address] [address] * Lipid panel (04/09/2025 1:42 PM EDT) HDL 63 mg/dL [facility] Comment: Interpretation <40 mg/dL: Low HDL cholesterol (major risk factor for CHD) Greater than or equal to 60 mg/dL: High HDL cholesterol ( negative risk factor for CHD) HDL - cholesterol is affected by a number of factors, e.g. smoking, excerise, hormones, sex and age. CHOLESTEROL 213 0 - 240 mg/dL [facility] TRIGLYCERIDES 135 30 - 160 mg/dL [facility] LDL 123 50 - 129 mg/dL [facility] Comment: LDL levels in terms of risk for coronary heart disease: <100 mg/dL: Optimal 100-129 mg/dL: Near or above optimal 130-159 mg/dL: Borderline high 160-189 mg/dL: High >190 mg/dL: Very High CARDIAC RISK RATIO 3.4 3.3 - 4.4 [facility] Blood 04/09/2025 1:42 PM EDT 04/09/2025 1:44 PM EDT Flori BLAKE LAB BLOOD BKR ORDERABLES Fi nal Result Performing Organization Address [facility]/ZIP Co de Phone Number [address] [address] * BI MAMMOGRAM SCREENING WITH TOMOSYNTHESIS WITH [...] of the results and recommendations. Nettie Delarosa SEAM FINISHER IMG MG EXAMS Final Result * COLONOSCOPY FOR RESULT ENTRY ONLY (07/18/2015) Colonoscopy Normal Comment:10 year recall Historical Provider HEALTH MAINTENANCE Final Result from Last 3 Months or Most Recently Relevant to Health Maintenance Insurance MEDICARE PART A & B [facility] [facility] EXTENSION MEDICARE SUPPLEMENT MEDICARE PART A & B Member Subscriber Plan / Payer ( fective 2020-) Name:Nina Cao Member ID:[id number] Relation to Subscriber:Self Name:Nina Cao Subscriber ID:[id number] Payer ID:[id number] Group ID:Not on file Type:Medicare Address: [employer] [address] [place] [phone] [facility] [facility] EXTENSION MEDICARE SUPPLEMENT MEDICARE PART A & B MEDICARE PART A & B MEDICARE PART A & B EXTENSION MEDICARE SUPPLEMENT MEDICARE PART A & B MEDICARE PART A & B MEDICARE SUPPLEMENT MEDICARE PART A & B Active [employer] MEDICARE SUPPLEMENT MEDICARE PART A & B Active [employer] MEDICARE SUPPLEMENT SAFETY INSURANCE Care Teams Shactor Helper Relationship Specialty Start Date End Date Nettie Delarosa CNP [address] [place] [address] [address] [place] [address] [email or web address] PCP - General Internal Medicine 08/02/20 uAdra Kenyon NP [address] [place] [address] Historical LMR Provider 09/14/17 Additional Source Comments The information contained in this document represents components of the legal health record. It is not the complete legal health record.[facility]
== END 2025-11-08 15:17 | disposition home or self-care (01) ==
LOC: HO.BBR 15:16
PROVIDERS: PCP Family Medicine; Visit Provider Physician Assistant Medical
DX: E83.110 Hereditary hemochromatosis (principal)
CPT/HCPCS: 36415; 82728; 83540; 85025